=== PATIENT | male | born 1940 | race Caucasian/White ===

== ENCOUNTER → 2017-12-19 | Day surgery (SDC) | payer OTHER ==
[2017-11-29 13:00] VITALS: Ht 185.4 cm; Wt 79.1 kg
[~2017-12-19] VITALS: Ht 185.4 cm; Wt 79.1 kg
[~2017-12-19] MED LIST: ASPCH81X PO; ATOR-24 PO; ATROPINE SULFATE 0.1 MG/ML 5ML SYR IV PRN; CEFAZOLIN 1000MG IV PUSH 7.5 ML IV SCH; CLOP1TAB15 PO; DOXA2TAB PO; EpHEDrine SULFATE INJ 50 MG/ML AMP IV PRN; EpHEDrine SULFATE INJ 50 MG/ML AMP ONE; FENTANYL CITRATE INJ 50 MCG/1 ML 2 ML VIAL IV PRN; FENTANYL CITRATE INJ 50 MCG/1 ML 2 ML VIAL ONE; FLUMAZENIL 0.1 MG/1 ML 10 ML VIAL IV PRN; HYDR-5688 PO; HYDROCODONE/ACETAMIN 5/325MG TAB PO PRN; HYDROmorphone INJ 0.5 MG/0.5 ML SYR IV PRN; ISOS120T5 PO; LABETALOL HCL IV 5 MG/ML 20ML IV PRN; LACTATED RINGER'S 1000ML 1,000 ML IV SCH; LIDOCAINE HCL 2% 2 ML VIAL (20MG/ML) ONE; LIDOCAINE HCL 2% LOCAL 20 ML VIAL ONE; LIFI5DRO OPB; LISI-789 PO; MELO15TA10 PO; MEPERIDINE HCL 25 MG/ML CARP IV PRN; METO25TA3 PO; MIDAZOLAM HCL 1 MG/ML 2ML VIAL ONE; NALOXONE HCL 0.4 MG/1 ML VIAL/CARP IV PRN; NTRGSL/4 UT; ONDANSETRON INJ 2 MG/ML 2 ML VIAL IV PRN; ONDANSETRON INJ 2 MG/ML 2 ML VIAL ONE; PANT40TA PO; PHENYLEPHRINE 100MCG/ML 5ML SYR IV PRN; PROPOFOL IV EMULSION 10 MG/ML 20 ML VIAL ONE; SODIUM CHLORIDE 0.9% 1000ML 1,000 ML IV SCH; SODIUM CHLORIDE 0.9% INJ 10 ML VIAL ONE
--- NOTE | 2017-12-19 06:42 | History & Physical Bridge - [place] ---
H&P Re-Evaluation Bridge Note: I have examined the patient, reviewed the History & Physical and in the interval since the performance of the History & Physical I have noted the following changes of clinical significance: No changes noted
--- NOTE | 2017-12-19 07:16 | [facility] Post Operative Brief Note ---
Immediate Operative Summary Operative Date December 19, 2017. Pre-Operative Diagnosis Right Long Trigger Finger Post-Operative Diagnosis Same Procedure(s) Performed Right Long Trigger Finger Release Surgeon Dr. Gonzalez Annual Giving Manager Surgeon(s) Analy Churchill PA-C Estimated Blood Loss 5 ml Findings Consistent with Post-Op Diagnosis Specimens None Drains None Anesthesia Type MAC Complication(s) none Disposition Disposition: Recovery Room / PACU
--- NOTE | 2017-12-19 07:26 | Discharge Instructions-SurgCtr ---
Discharge Instructions Date of Service December 19, 2017. Visit Reason for Visit: Right Long Trigger Finger Discharge Discharge Diagnosis / Problem: SAME ABOVE Discharge Goals Goal(s): Decrease discomfort, Improve function Medications Stopped Medications Name(s): plavix last dose 12-12-17 Restart Stopped Medication(s): NOVEMBER RESTART 12/19/2017 Activity Recommendations Activity Limitations: as noted below Lifting Limitations: until after follow-up appointment Exercise/Sports Limitations: until after follow-up appointment Shower/Bathe: may shower/bathe in 3 days Anesthesia . Post Anesthesia Instructions: If you have had General Anesthesia or IV Sedation: * Do not drive today. * Resume driving when surgeon permits. * Do not make important decisions or sign legal documents today. * Call surgeon for: 1. Temperature elevations greater than 101 degrees F. 2. Uncontrollable pain. 3. Excessive bleeding. 4. Persistent nausea and vomiting. 5. Medication intolerance (nausea, vomiting or rash). * For nausea and vomiting use only clear liquids such as: tea, soda, bouillon until nausea subsides, then gradually increase diet as tolerated. * If you have any concerns or questions, call your surgeon's office. If physician is unavailable and it is an emergency, call 911 or go to the nearest emergency room. . Instructions / Follow-Up Instructions / Follow-Up MEDICATIONS: * Resume previous medications unless instructed otherwise by your surgeon. * Always take pain medication on a full stomach or with food to avoid upset stomach. * Do not drink alcohol or drive while taking narcotics. * Ibuprofen or Tylenol may be taken if narcotic not needed. SPECIAL CARE INSTRUCTIONS: __ None X__ Keep extremity elevated and iced x 48 hours; apply ice 20-30 minutes 8-10 times/day. May remove at night. __ Sling __24 hrs/day __ Remove at night __ Shoulder Immobilizer __ 24 hrs/day __ Remove at night _X_ Dressing __ Maintain until seen in office, may shower with plastic over site _X_ Remove dressings in 72 hours. MAY SHOWER SOONER IF COVERED WITH PLASTIC BAG _X_ Cover incisions with band-aids after showering __ Do not remove steri-strips Call physician if chills or temperature rises above 102 degrees or pain unrelieved by prescribed pain medications at . . Diet Recommendations Home Diet: no limitations Fluid Restriction: None Procedures Procedures Performed: Right Long Trigger Finger Release Pending Studies Studies pending at discharge: no Medical Emergencies . Who to Call and When: Medical Emergencies: If at any time you feel your situation is an emergency, please call 911 immediately. . Non-Emergent Contact Non-Emergency issues call your: Primary Care Provider Call Non-Emergent contact if: you have a fever, temperature is above 101.5 . . "Provider Documentation" section prepared by Eber Churchill. .
[2017-12-19 07:31] VITALS: TEMP 36.8
--- NOTE | 2017-12-19 07:34 | OPERATIVE REPORT ---
DATE OF OPERATION: 12/19/2017 PREOPERATIVE DIAGNOSIS: Triggering of the right long finger. POSTOPERATIVE DIAGNOSIS: Same. PROCEDURE: Open right long trigger finger release. SURGEON: Dr. Te Gonzalez. SENIOR TECHNICAL SPECIALIST: Eber Churchill PA-C, whose assistance was necessary for retraction and closure. ANESTHESIA: Local with sedation. COMPLICATIONS: None. CONDITION: Stable to PACU. 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 Clinical examination was diagnostic for triggering at the A1 elis. After failing conservative treatment, he elected to undergo open trigger finger release. DESCRIPTION OF PROCEDURE: On 12/19/2017, he arrived at [facility] for the above procedure. He was seen in the preoperative holding and the operative extremity was identified and signed. He was given a preoperative antibiotic, taken back to the operating room, laid on table in supine position and put under basic sedation. The right hand was prepped and draped in sterile fashion. Time-out was done and the patient's operative extremity was properly identified. The surgical site was anesthetized with 10 mL of lidocaine. A longitudinal incision was made directly over the A1 elis. Dissection was taken down through the fascia with care not to disrupt the neurovascular structures. The A1 elis was easily identified. A knife and tenotomy scissors were then used to release the A1 elis. The tendon was then pulled out of the wound to ensure complete release. The wound was then irrigated and closed with 4-0 nylon suture. He was placed in a soft dressing and taken to postanesthesia care unit in stable condition. He tolerated the procedure well. I attest to the content of the Intraoperative Record and any orders documented therein. Any exception s are noted below.
--- NOTE | 2017-12-19 07:38 | Anesthesia Progress Nt - [facility] ---
Anesthesia Post Op Note Date & Time December 19, 2017 at 07:38 Vital Signs Pain Intensity: 0 Vital Signs Past 12 Hours Date Time Temp Pulse Resp B/P (MAP) Pulse Ox O2 Delivery O2 Flow Rate FiO2 12/19/17 07:31 36.8 81 16 103/58 (73) 96 Room Air 12/19/17 06:27 36.7 61 18 147/76 (99) 95 Room Air Notes Mental Status: alert / awake / arousable, participated in evaluation Pt Amnestic to Procedure: Yes Nausea / Vomiting: adequately controlled Pain: adequately controlled Airway Patency, RR, SpO2: stable & adequate BP & HR: stable & adequate Hydration State: stable & adequate Anesthetic Complications: no major complications apparent
[2017-12-19 07:57] VITALS: BP 167/88; PULSE 66; O2SAT 96
== END | disposition home or self-care (01) ==
LOC: X.SURG 06:15
PROVIDERS: ATTEND Orthopaedic Surgery
DX: M65.331 Trigger finger, right middle finger (principal); I25.10 Atherosclerotic heart disease of native coronary artery without angina pectoris; E78.00 Pure hypercholesterolemia, unspecified; K21.9 Gastro-esophageal reflux disease without esophagitis; E78.5 Hyperlipidemia, unspecified; M19.90 Unspecified osteoarthritis, unspecified site; I10 Essential (primary) hypertension; Z82.49 Family history of ischemic heart disease and other diseases of the circulatory system; Z82.3 Family history of stroke; Z79.82 Long term (current) use of aspirin; Z87.891 Personal history of nicotine dependence; Z95.818 Presence of other cardiac implants and grafts

== ENCOUNTER 2021-01-27 17:53 | Inpatient (IN) ==
[2021-01-27] MEDS ORDERED: KETOROLAC TROMETHAMINE 15 MG/ML VIAL IV STA (18:43)
[2021-01-27] MEDS ORDERED: cefTRIAXone SODIUM 2,000 MG/70 ML BAG IV STA (18:43)
[2021-01-27] MEDS ORDERED: DOXYCYCLINE HYCLATE 100 MG CAP PO STA (18:43)
[2021-01-27] MEDS ORDERED: ACETAMINOPHEN 500 MG TAB PO STA (18:43)
[2021-01-27] MEDS ORDERED: SODIUM CHLORIDE 0.9% 1000ML 1,000 ML IV SCH (18:45)
--- NOTE | 2021-01-27 18:51 | Emergency Department Note ---
Impression & Plan Fever, Weakness, Flu-like symptoms, Tick bite ED Provider Note NAME: ANA PACHECO AGE: 80 SEX: M : 1940 ARRIVES VIA: Ambulance INFORMANT: [Patient][family] ED PROVIDER(S): [Kuldeep Faulkner MD] CHIEF COMPLAINT: Illness HISTORY OF PRESENT ILLNESS: The patient is an 80-year-old male who presents with about 3 days of symptoms. He has had weakness and felt like he has been in a fog since Saturday. He states that Saturday evening, he had a low-grade fever that seemed to break yesterday. The patient saw his doctor this morning and was sent to the ER for f urther work-up. They had noticed some weakness in his legs at the doctor's office and he was having a hard time standing. Work-up at this ED was unrevealing. No findings of infection. No findings of acute focal neurologic deficit. The patient was discharged. As per the patient and his family, the patient began having rigors and chills a short time ago after leaving the ED. His weakness increased. Both legs were involved. He had a headache, he seemed slightly confused. The patient did have a Covid test done earlier today, this was negative. He had a chest x-ray which was unrevealing. His brain CT imaging and abdominal CT imaging was basically unrevealing. No findings of infection by laboratory testing. Of note, the patient does believe he had a tick bite to his right inner proximal thigh about a week ago. [place] REVIEW OF SYSTEMS: See HPI for pertinent positives and negatives. A total of ten systems were reviewed and were otherwise negative. PMHx/PSHx: See Below SOCIAL HISTORY: See Below. PHYSICAL EXAM: GENERAL: Patient is in no acute distress. HEENT: No acute trauma, normocephalic atraumatic, mucous membranes moist, no nasal congestion, no scleral icterus. NECK: No stridor, no adenopathy, no meningismus, trachea is midline. Flexes chin to the chest without pain or difficulty. LUNGS: Clear to auscultation bilaterally, no wheeze, no rhonchi, breath sounds equal. HEART: Without murmurs gallops or rubs, regular rate and rhythm. ABDOMEN: Soft, nontender, bowel sounds positive, no hernias, no peritonitis. EXTREMITIES: No cyanosis or edema, full range of motion of all the joints without pain or difficulty, no signs for acute trauma. There is an area that is healing to the right proximal inner thigh that has the appearance of potential tick bite. Very mild surrounding erythema noted. NEUROLOGIC: Oriented x 3, no acute motor or sensory deficits, no focal weakness. No speech slur or facial droop. SKIN: No rash, no jaundice, no diaphoresis. DIFFERENTIAL DIAGNOSIS: Sepsis, UTI, pneumonia, metabolic abnormality, Lyme disease, anaplasmosis, COVID-19, electrolyte abnormalities, cardiac sources, cellulitis, UTI, bacteremia, intracerebral event, toxicologic etiology, neurologic event, as well as other pathologies. EMERGENCY DEPARTMENT COURSE/PROCEDURES: MEDICAL DECISION MAKING: There is no leukocytosis or concerning anemia. Platelet count is slightly low. No significant electrolyte abnormality or kidney failure. Lactic acid level is not elevated making sepsis less likely. Procalcitonin level was somewhat elevated. No liver enzyme elevation. Cardiac enzyme testing x1 is not consistent with acute cardiac injury. Urinalysis does not show obvious infection. Lyme disease testing was negative. Anaplasmosis smear was negative. Anaplasmosis DNA is pending. On exam, the patient did not have meningismus. He was awake and alert. He had no neurologic deficits or speech slur. I did review the patient's testing from earlier today. Nothing found of concern really. The patient has a dropping platelet count. He has flulike symptoms and had a recent tick bite. He has a fever. I suspect anaplasmosis or some other type of tickborne disease. The patient was given IV saline, IV ceftriaxone and oral doxycycline. He was given IV Toradol, oral Tylenol. He was given his typical dose of oral nighttime metoprolol succinate. The patient looks well. I do think he requires a hospital stay. He is quite weak, he is having rigors. This is his second visit in 1 day to the ED. I do think further care in the hospital is warranted. I spoke to the patient and case management. The on-call hospitalist was consulted. Past Med/Surg History Medical History BPH (benign prostatic hyperplasia) CAD (coronary artery disease) CKD (chronic kidney disease), stage III CVA (cerebral vascular accident) GERD (gastroesophageal reflux disease) HLD (hyperlipidemia) HTN (hypertension) Surgical History (Updated 01/27/21 @ 21:18 by Zulma Pizarro PA-C) H/O heart artery stent Hx of laminectomy Family History (Updated 01/27/21 @ 21:19 by Zulma Pizarro PA-C) Mother Dementia Father Stroke Social History Smoking Status: Former smoker Hx Alcohol Use: Yes Alcohol type: wine Alcohol Intake Frequency Comment: 1 glass wine day Hx Substance Use: No Preferred Language: Thai Feels Safe at Home: Yes Allergies Allergies Allergy/AdvReac Type Severity Reaction Status Date / Time No Known Allergies Allergy Unknown ` Verified 01/27/21 20:49 Home Meds Home Medications Medication Instructions Recorded Confirmed aspirin [Aspirin Low Dose] 162 mg PO QAM 01/27/21 01/27/21 atorvastatin [Lipitor] 40 mg PO 01/27/21 01/27/21 clopidogrel [Plavix] 75 mg PO 01/27/21 01/27/21 cyclobenzaprine 5 mg PO TID PRN 01/27/21 01/27/21 isosorbide mononitrate 30 mg PO QA 01/27/21 01/27/21 metoprolol succinate [Toprol XL] 12.5 mg PO 01/27/21 01/27/21 nitroglycerin [Nitrostat] 0.4 mg SUBLINGUAL UD 01/27/21 01/27/21 pantoprazole [Protonix] 40 mg PO DAILYBB 01/27/21 01/27/21 prednisone 0 mg PO DAILY 01/27/21 01/27/21 tamsulosin [Flomax] 0.4 mg PO HS 01/27/21 01/27/21 valacyclovir [Valtrex] 500 mg PO QAM 01/27/21 01/27/21 Results & Data (ED) Vital Signs Vital Signs - 24 hr 01/27/21 17:58 01/27/21 18:24 01/27/21 18:27 Temperature 38.1 C H Temperature Source Oral Pulse Rate 98 H 93 H Pulse Rate [Apical] 92 H Pulse Rate from SpO2 Sensor 93 H Pulse Rhythm [Apical] Regular Respiratory Rate 18 29 H 16 Respiratory Effort / Characteristics Non-Labored Respiratory Depth Normal Blood Pressure 179/92 H 168/96 H Blood Pressure [Right Arm] 168/96 H Blood Pressure Mean 121 120 Blood Pressure Mean [Right Arm] 120 Pulse Oximetry 95 94 94 Oxygen Delivery Method Room Air Room Air Sepsis Recent Fever Within 48 Hours Yes Sepsis New/Unexplained Change in Mental Status No Sepsis Action Taken by Nursing No Action Required 01/27/21 18:28 01/27/21 18:30 01/27/21 18:40 Temperature Temperature Source Pulse Rate 92 H 92 H 93 H Pulse Rate [Apical] Pulse Rate from SpO2 Sensor 92 H 93 H 93 H Pulse Rhythm [Apical] Respiratory Rate 28 H 25 H 28 H Respiratory Effort / Characteristics Respiratory Depth Blood Pressure 181/90 H Blood Pressure [Right Arm] Blood Pressure Mean 120 Blood Pressure Mean [Right Arm] Pulse Oximetry 94 95 93 Oxygen Delivery Method Sepsis Recent Fever Within 48 Hours Sepsis New/Unexplained Change in Mental Status Sepsis Action Taken by Nursing 01/27/21 18:50 01/27/21 18:55 01/27/21 19:00 Temperature Temperature Source Pulse Rate 92 H 99 H 99 H Pulse Rate [Apical] Pulse Rate from SpO2 Sensor 91 H 98 H Pulse Rhythm [Apical] Respiratory Rate 27 H 33 H 19 Respiratory Effort / Characteristics Respiratory Depth Blood Pressure 203/113 H 213/110 H Blood Pressure [Right Arm] Blood Pressure Mean 143 144 Blood Pressure Mean [Right Arm] Pulse Oximetry 95 96 Oxygen Delivery Method Sepsis Recent Fever Within 48 Hours Sepsis New/Unexplained Change in Mental Status Sepsis Action Taken by Nursing 01/27/21 19:10 01/27/21 19:15 01/27/21 19:20 Temperature Temperature Source Pulse Rate 93 H 94 H 94 H Pulse Rate [Apical] Pulse Rate from SpO2 Sensor 93 H 93 H 94 H Pulse Rhythm [Apical] Respiratory Rate 23 28 H 29 H Respiratory Effort / Characteristics Non-Labored Respiratory Depth Blood Pressure 190/101 H Blood Pressure [Right Arm] Blood Pressure Mean 130 Blood Pressure Mean [Right Arm] Pulse Oximetry 95 95 94 Oxygen Delivery Method Room Air Sepsis Recent Fever Within 48 Hours Sepsis New/Unexplained Change in Mental Status Sepsis Action Taken by Nursing 01/27/21 19:30 01/27/21 19:40 01/27/21 19:45 Temperature Temperature Source Pulse Rate 113 H 101 H 101 H Pulse Rate [Apical] Pulse Rate from SpO2 Sensor 112 H 102 H 101 H Pulse Rhythm [Apical] Respiratory Rate 26 H 22 26 H Respiratory Effort / Characteristics Respiratory Depth Blood Pressure 152/82 H Blood Pressure [Right Arm] Blood Pressure Mean 105 Blood Pressure Mean [Right Arm] Pulse Oximetry 95 94 95 Oxygen Delivery Method Sepsis Recent Fever Within 48 Hours Sepsis New/Unexplained Change in Mental Status Sepsis Action Taken by Nursing 01/27/21 19:50 01/27/21 20:00 01/27/21 20:10 Temperature Temperature Source Pulse Rate 102 H 100 H 100 H Pulse Rate [Apical] Pulse Rate from SpO2 Sensor 102 H 99 H 99 H Pulse Rhythm [Apical] Respiratory Rate 27 H 37 H 20 Respiratory Effort / Characteristics Respiratory Depth Blood Pressure 149/78 H Blood Pressure [Right Arm] Blood Pressure Mean 101 Blood Pressure Mean [Right Arm] Pulse Oximetry 95 96 95 Oxygen Delivery Method Sepsis Recent Fever Within 48 Hours Sepsis New/Unexplained Change in Mental Status Sepsis Action Taken by Nursing 01/27/21 20:15 01/27/21 20:20 01/27/21 20:30 Temperature Temperature Source Pulse Rate 95 H 94 H 92 H Pulse Rate [Apical] Pulse Rate from SpO2 Sensor 95 H 94 H 92 H Pulse Rhythm [Apical] Respiratory Rate 21 24 17 Respiratory Effort / Characteristics Respiratory Depth Blood Pressure 142/77 H 138/75 Blood Pressure [Right Arm] Blood Pressure Mean 98 96 Blood Pressure Mean [Right Arm] Pulse Oximetry 94 95 95 Oxygen Delivery Method Sepsis Recent Fever Within 48 Hours Sepsis New/Unexplained Change in Mental Status Sepsis Action Taken by Nursing 01/27/21 20:40 Temperature Temperature Source Pulse Rate 91 H Pulse Rate [Apical] Pulse Rate from SpO2 Sensor 90 Pulse Rhythm [Apical] Respiratory Rate 20 Respiratory Effort / Characteristics Respiratory Depth Blood Pressure Blood Pressure [Right Arm] Blood Pressure Mean Blood Pressure Mean [Right Arm] Pulse Oximetry 95 Oxygen Delivery Method Sepsis Recent Fever Within 48 Hours Sepsis New/Unexplained Change in Mental Status Sepsis Action Taken by [facility] Medications Current Medication List: was personally reviewed by me Laboratory Data Attestation: I reviewed the patient's lab results. Result diagrams: 01/27/21 19:15 01/27/21 19:15 Lab Results 01/27/21 01/27/21 01/27/21 Range/Units 18:15 19:15 19:15 WBC 8.57 (4.8-10.8) K/uL RBC 4.50 L (4.7-6.1) M/uL Hgb 15.0 (14.0-18.0) g/dL Hct 43.5 (42-52) % MCV 96.7 (80-100) fL MCH 33.3 (25-34) pg MCHC 34.5 (32-36) g/dL RDW Std Deviation 51.3 H (36.4-46.3) fL RDW Coeff of [place] 14.3 (11.5-14.5) % Plt Count 129 L (130-400) K/uL MPV 9.0 (7.4-10.4) fL Immature Gran % (Auto) 0.4 % Neut % (Auto) 92.6 % Lymph % (Auto) 3.2 % [place] % (Auto) 3.5 % Eos % (Auto) 0.2 % Baso % (Auto) 0.1 % Neut # (Auto) 7.94 H (1.4-6.5) K/uL Lymph # (Auto) 0.27 L (1.2-3.4) K/uL [place] # (Auto) 0.30 (0.11-0.59) K/uL Eos # (Auto) 0.02 (0-0.5) K/uL Baso # (Auto) 0.01 (0-0.2) K/uL Immature Gran # (Auto) 0.03 H (0.00-0.02) K/uL Sodium (136-145) mmol/L Potassium (3.5-5.1) mmol/L Chloride (98-107) mmol/L Carbon Dioxide (21-32) mmol/L Anion Gap (3-11) BUN (7-18) mg/dl Creatinine (0.6-1.4) mg/dl Est Cr Clr Drug Dosing ml/min Est GFR ( Amer) ml/min Est GFR (Non-Af Amer) ml/min BUN/Creatinine Ratio (10-20) Glucose (70-99) mg/dl Lactate (0.4-2.0) mmol/L Calcium (8.5-10.1) mg/dl Magnesium (1.8-2.4) mg/dl Total Bilirubin (0.2-1) mg/dl AST (15-37) U/L ALT (12-78) U/L Alkaline Phosphatase (45-117) U/L Troponin I (0-0.045) ng/ml Total Protein (6.4-8.2) gm/dl Albumin (3.4-5.0) gm/dl Globulin (2.5-4.0) gm/dl Albumin/Globulin Ratio (0.9-2) Procalcitonin (0-0.5) ng/ml Urine Color Yellow Urine Appearance Clear (Clear) Urine pH 5.0 (4.5-7.5) Ur Specific [place] 1.028 (1.000-1.030) Urine Protein Negative (Negative) Urine Glucose (UA) Negative (Negative) Urine Ketones Negative (Negative) Urine Blood 2+ H (Negative) Urine Nitrite Negative (Negative) Urine Bilirubin Negative (Negative) Urine Urobilinogen Negative (Negative) Ur Leukocyte Esterase Negative (Negative) Urine WBC (Auto) 0 (0-5) /hpf Urine RBC (Auto) 5-10 H (0-4) /hpf U Hyaline Cast (Auto) 0 (0-5) /lpf U Epithel Cells (Auto) 0-5 (0-5) /lpf Urine Bacteria (Auto) Negative (Negative) Anaplasma Smear See Comment Lyme Disease IgG Ab (Negative) Lyme Disease IgM Ab (Negative) 01/27/21 01/27/21 01/27/21 Range/Units 19:15 19:15 19:30 WBC (4.8-10.8) K/uL RBC (4.7-6.1) M/uL Hgb (14.0-18.0) g/dL Hct (42-52) % MCV (80-100) fL MCH (25-34) pg MCHC (32-36) g/dL RDW Std Deviation (36.4-46.3) fL RDW Coeff of [place] (11.5-14.5) % Plt Count (130-400) K/uL MPV (7.4-10.4) fL Immature Gran % (Auto) % Neut % (Auto) % Lymph % (Auto) % [place] % (Auto) % Eos % (Auto) % Baso % (Auto) % Neut # (Auto) (1.4-6.5) K/uL Lymph # (Auto) (1.2-3.4) K/uL [place] # (Auto) (0.11-0.59) K/uL Eos # (Auto) (0-0.5) K/uL Baso # (Auto) (0-0.2) K/uL Immature Gran # (Auto) (0.00-0.02) K/uL Sodium 136 (136-145) mmol/L Potassium 4.3 (3.5-5.1) mmol/L Chloride 105 (98-107) mmol/L Carbon Dioxide 28 (21-32) mmol/L Anion Gap 3.0 (3-11) BUN 24 H (7-18) mg/dl Creatinine 1.10 (0.6-1.4) mg/dl Est Cr Clr Drug Dosing 58.9 ml/min Est GFR ( Amer) 73.1 ml/min Est GFR (Non-Af Amer) 63.1 ml/min BUN/Creatinine Ratio 21.8 H (10-20) Glucose 114 H (70-99) mg/dl Lactate 1.4 (0.4-2.0) mmol/L Calcium 8.7 (8.5-10.1) mg/dl Magnesium 2.3 (1.8-2.4) mg/dl Total Bilirubin 1.0 (0.2-1) mg/dl AST 23 (15-37) U/L ALT 45 (12-78) U/L Alkaline Phosphatase 58 (45-117) U/L Troponin I < 0.015 (0-0.045) ng/ml Total Protein 7.4 (6.4-8.2) gm/dl Albumin 3.8 (3.4-5.0) gm/dl Globulin 3.6 (2.5-4.0) gm/dl Albumin/Globulin Ratio 1.1 (0.9-2) Procalcitonin 1.52 H (0-0.5) ng/ml Urine Color Urine Appearance (Clear) Urine pH (4.5-7.5) Ur Specific [place] (1.000-1.030) Urine Protein (Negative) Urine Glucose (UA) (Negative) Urine Ketones (Negative) Urine Blood (Negative) Urine Nitrite (Negative) Urine Bilirubin (Negative) Urine Urobilinogen (Negative) Ur Leukocyte Esterase (Negative) Urine WBC (Auto) (0-5) /hpf Urine RBC (Auto) (0-4) /hpf U Hyaline Cast (Auto) (0-5) /lpf U Epithel Cells (Auto) (0-5) /lpf Urine Bacteria (Auto) (Negative) Anaplasma Smear Lyme Disease IgG Ab Negative (Negative) Lyme Disease IgM Ab Negative (Negative) Administered Medications Discontinued Medications Acetaminophen (Acetaminophen 500 Mg Tab) 1,000 mg PO NOW STA Stop: 01/27/21 18:44 Last Admin: 01/27/21 18:50 Dose: 1,000 mg Documented by: [id number] Doxycycline Hyclate (Doxycycline Hyclate 100 Mg Cap) 100 mg PO NOW STA Stop: 01/27/21 18:44 Last Admin: 01/27/21 18:51 Dose: 100 mg Documented by: [id number] Sodium Chloride (Nss 1000ml) 1,000 mls @ 999 mls/hr IV .Q1H1M MANISH Stop: 01/27/21 19:45 Last Infusion: 01/27/21 19:53 Dose: 999 mls/hr Documented by: [id number] Admin: 01/27/21 18:51 Dose: 999 mls/hr Documented by: [id number] Ceftriaxone Sodium (Rocephin) 2,000 mg in 70 mls @ 140 mls/hr IV NOW STA Stop: 01/27/21 19:12 Last Infusion: 01/27/21 19:22 Dose: 140 mls/hr Documented by: [id number] Admin: 01/27/21 18:50 Dose: 140 mls/hr Documented by: [id number] Ketorolac Tromethamine (Ketorolac Tromethamine 15 Mg/Ml Vial) 15 mg IV NOW STA Stop: 01/27/21 18:44 Last Admin: 01/27/21 18:51 Dose: 15 mg Documented by: [id number] Metoprolol Succinate (Metoprolol Succ 25mg Ext Rel Tab) 12.5 mg PO NOW STA Stop: 01/27/21 19:42 Last Admin: 01/27/21 19:48 Dose: 12.5 mg Documented by: [id number] Discharge Plan Visit Data Chief Complaint: Illness Stated Complaint: tick bite/chills, here today ED Provider: Kuldeep Faulkner Discharge Problem: Fever, Weakness, Flu-like symptoms, Tick bite Patient Disposition: Admitted As Inpatient Condition: Fair Forms Stand Alone Forms: [facility] Prescriptions Prescriptions: No Action atorvastatin [Lipitor] 40 mg tablet 40 mg PO HS RF: 0 prednisone 10 mg tablet 0 mg PO DAILY RF: 0 isosorbide mononitrate 30 mg tablet extended release 24 hr 30 mg PO QAM RF: 0 clopidogrel [Plavix] 75 mg tablet 75 mg PO HS RF: 0 valacyclovir [Valtrex] 500 mg tablet 500 mg PO QAM RF: 0 aspirin [Aspirin Low Dose] 81 mg Tablet,Delayed Release (Dr/Ec) 162 mg PO QAM RF: 0 tamsulosin [Flomax] 0.4 mg capsule 0.4 mg PO HS RF: 0 pantoprazole [Protonix] 40 mg tablet,delayed release (DR/EC) 40 mg PO DAILYBB RF: 0 nitroglycerin [Nitrostat] 0.4 mg Tablet, Sublingual 0.4 mg sublingual UD RF: 0 metoprolol succinate [Toprol XL] 25 mg tablet extended release 24 hr 12.5 mg PO HS RF: 0 cyclobenzaprine 5 mg tablet 5 mg PO TID PRN (Reason: MUSCLE SPASMS) RF: 0 Referrals Referrals: Olga Montague DO [Primary Care Provider] -
[2021-01-27 19:28] LABS: Basophils # (auto) 0.01 K/uL (0-0.2); Basophils % (auto) 0.1 %; Eosinophils # (auto) 0.02 K/uL (0-0.5); Eosinophils % (auto) 0.2 %; Hematocrit (blood only) 43.5 % (42-52); Immature Granulocytes # (auto) 0.03 K/uL (0.00-0.02); Immature Granulocytes % (auto) 0.4 %; Lymphocytes # (auto) 0.27 K/uL (1.2-3.4); Lymphocytes % (auto) 3.2 %; Mean Corpuscular Hemoglobin 33.3 pg (25-34); Mean Corpuscular Hgb Conc 34.5 g/dL (32-36); Mean Corpuscular Volume 96.7 fL (80-100); Monocytes % (auto) 3.5 %; Neutrophils # (auto) 7.94 K/uL (1.4-6.5); Neutrophils % (auto) 92.6 %; Platelet Count 129 K/uL (130-400); RDW Coefficient of Variation 14.3 % (11.5-14.5); RDW Standard Deviation 51.3 fL (36.4-46.3); White Blood Count 8.57 K/uL (4.8-10.8)
[2021-01-27 19:29] LABS: Appearance Urine Clear (Clear); Bacteria Urine Automated Negative (Negative); Bilirubin Urine Negative (Negative); Blood Urine 2+ (Negative); Cast Urine Automated 0 /lpf (0-5); Color Urine Yellow; Epithelial Cell Urine Auto 0-5 /lpf (0-5); Glucose Urine UA Negative (Negative); Ketones Urine Negative (Negative); Leukocyte Esterase Urine Negative (Negative); Nitrite Urine Negative (Negative); Protein Urine Negative (Negative); Specific Gravity Urine 1.028 (1.000-1.030); Urobilinogen Urine Negative (Negative); WBC Urine Automated 0 /hpf (0-5)
[2021-01-27] MEDS ORDERED: METOPROLOL SUCC 25MG EXT REL TAB PO STA (19:41)
[2021-01-27 19:48] LABS: Alanine Aminotransferase 45 U/L (12-78); Albumin Level 3.8 gm/dl (3.4-5.0); Aspartate Aminotransferase 23 U/L (15-37); BUN Creatinine Ratio 21.8 (10-20); Blood Urea Nitrogen 24 mg/dl (7-18); Calcium 8.7 mg/dl (8.5-10.1); Carbon Dioxide 28 mmol/L (21-32); Chloride 105 mmol/L (98-107); Creatinine Clr Calc Pharmacy 58.9 ml/min; Est GFR (African American) 73.1 ml/min; Est GFR (Non-African American) 63.1 ml/min; Glucose 114 mg/dl (70-99); Magnesium 2.3 mg/dl (1.8-2.4); Potassium 4.3 mmol/L (3.5-5.1); Sodium 136 mmol/L (136-145)
[2021-01-27 19:52] LABS: Albumin Globulin Ratio 1.1 (0.9-2); Alkaline Phosphatase 58 U/L (45-117); Globulin 3.6 gm/dl (2.5-4.0); Total Protein 7.4 gm/dl (6.4-8.2); Troponin I < 0.015 ng/ml (0-0.045)
[2021-01-27 20:17] LABS: Procalcitonin 1.52 ng/ml (0-0.5)
[2021-01-27 20:24] LABS: Lyme Ab IgG w/WB Rflx Negative (Negative); Lyme Ab IgM w/WB Rflx Negative (Negative)
--- NOTE | 2021-01-27 21:10 | History & Physical Report ---
Date of Service January 27, 2021 Assessment & Plan (1) Fever: (2) Weakness: (3) CKD (chronic kidney disease), stage III: (4) CAD (coronary artery disease): (5) HTN (hypertension): (6) HLD (hyperlipidemia): (7) BPH (benign prostatic hyperplasia): HPI, PMH, PE, med rec completed by Zulma Pizarro PA-C. Assessment and Plan per Dr Muniz. See addendum. History of Present Illness Chief Complaint: Fever, weakness Primary Care Provider: Olga Montague, Pt is 80 y/o M with PMH HTN, dyslipidemia, CKD III, CAD s/p stent, CVA, BPH, GERD presented to ER with complaint of fever and weakness x3 days. Patient states today having difficulty ambulating secondary to legs feeling weak and feeling like they are giving out on him. Reports had generalized headache yesterday. He has had decreased oral intake. He reports he gets headache when he does not eat and today he ate some food and headache resolved. Denies neck pain or stiffness. Had some nausea, no vomiting or diarrhea, no abdominal pain. Reports last week noticed what he initially thought was a pimple to right upper inner thigh however he then reports that it was a tick. 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 Denies ill contacts, recent travel. Had 2 doses Pfizer vaccine last dose was in 11/2020. Denies dizziness, syncope, vision changes, neck pain, CP, SOB, orthopnea, palpitations, cough, sore throat, choking, otalgia, rhinorrhea, abdominal pain, paresthesias, extremity edema, rashes, urinary symptoms. Was seen in ER this morning and discharged home and returned today secondary to continued fever and weakness. CT head: No acute changes, chest x-ray: No consolidation. CT abdomen/pelvis: No acute findings. WBC: 8, PLT: 129, LFTs WNL, lactate: 1.4, procalcitonin: 1.5, UA not consistent with infection. Lyme IgG AB and IgM AB-, anaplasmosis smear not consistent with anaplasmosis. Anaplasmosis PCR is pending. Patient being admitted for further treatment for suspected tickborne illness Allergies Allergy/AdvReac Type Severity Reaction Status Date / Time No Known Allergies Allergy Unknown ` Verified 01/27/21 20:49 Home Medications Medication Instructions Recorded Confirmed Type aspirin [Aspirin Low Dose] 162 mg PO QAM 01/27/21 01/27/21 History atorvastatin [Lipitor] 40 mg PO HS 01/27/21 01/27/21 History clopidogrel [Plavix] 75 mg PO HS 01/27/21 01/27/21 History cyclobenzaprine 5 mg PO TID PRN 01/27/21 01/27/21 History isosorbide mononitrate 30 mg PO QAM 01/27/21 01/27/21 History metoprolol succinate [Toprol XL] 12.5 mg PO HS 01/27/21 01/27/21 History nitroglycerin [Nitrostat] 0.4 mg SUBLINGUAL UD 01/27/21 01/27/21 History pantoprazole [Protonix] 40 mg PO DAILYBB 01/27/21 01/27/21 History prednisone 0 mg PO DAILY 01/27/21 01/27/21 History tamsulosin [Flomax] 0.4 mg PO HS 01/27/21 01/27/21 History valacyclovir [Valtrex] 500 mg PO QAM 01/27/21 01/27/21 History Past Med/Surg History Medical History BPH (benign prostatic hyperplasia) CAD (coronary artery disease) CKD (chronic kidney disease), stage III CVA (cerebral vascular accident) GERD (gastroesophageal reflux disease) HLD (hyperlipidemia) HTN (hypertension) Surgical History (Updated 01/27/21 @ 21:18 by Zulma Pizarro PA-C) H/O heart artery stent Hx of laminectomy Family History (Updated 01/27/21 @ 21:19 by Zulma Pizarro PA-C) Mother Dementia Father Stroke Social History Smoking Status: Former smoker Smoking End Date: "30 years ago"; Second Hand Exposure: No; Do You Dip or Chew Tobacco: No; Hx Alcohol Use: Yes Alcohol type: wine Alcohol Intake Frequency Comment: 1 glass wine day Hx Substance Use: No Preferred Language: Urdu Communication Ability: Effective Utility Maintenance Worker Required: No Beliefs That Will Affect Care: None Current Living Situation: Spouse Feels Safe at Home: Yes Safety Concerns: Feels Safe At This Time Assistive Devices: Denture - Upper Review of Systems Review of Systems: All systems reviewed & are unremarkable except as noted in HPI & below Physical Exam Physical Exam: General: no distress, WDWN Head: normocephalic, atraumatic Eyes: PERRL, EOM's intact, conjunctiva non-injected, anicteric ENT: normal inspection external ears, nose, mucous membranes moist Neck: supple, trachea midline, non-tender, ROM intact Lungs: clear, no respiratory distress, no wheezing/rhonchi/rales CV: RRR, no murmur, no pretibial edema Abd: normal BS, soft, non-tender Ext: no cyanosis, no calf tenderness Neuro: A&O x 3, no focal deficits noted, normal affect Skin: warm, dry; right upper inner thigh with scab Results & Data Results & Data ([facility]) Vital Signs (Past 12 Hours) Vital Signs Temp Pulse Pulse Resp BP BP Pulse Ox 01/27/21 20:40 91 H 20 95 01/27/21 20:30 92 H 17 138/75 95 01/27/21 20:20 94 H 24 95 01/27/21 20:15 95 H 21 142/77 H 94 01/27/21 20:10 100 H 20 95 01/27/21 20:00 100 H 37 H 149/78 H 96 01/27/21 19:50 102 H 27 H 95 01/27/21 19:45 101 H 26 H 152/82 H 95 01/27/21 19:40 101 H 22 94 01/27/21 19:30 113 H 26 H 95 01/27/21 19:20 94 H 29 H 94 01/27/21 19:15 94 H 28 H 190/101 H 95 01/27/21 19:10 93 H 23 95 01/27/21 19:00 99 H 19 213/110 H 01/27/21 18:55 99 H 33 H 203/113 H 96 01/27/21 18:50 92 H 27 H 95 01/27/21 18:40 93 H 28 H 93 01/27/21 18:30 92 H 25 H 181/90 H 95 01/27/21 18:28 92 H 28 H 94 01/27/21 18:27 92 H 16 168/96 H 94 07/02/21 18:24 93 H 29 H 168/96 H 94 01/27/21 17:58 38.1 C H 98 H 18 179/92 H 95 Laboratory Results Short CBC 01/27/21 Range/Units 19:15 WBC 8.57 (4.8-10.8) K/uL Hgb 15.0 (14.0-18.0) g/dL Hct 43.5 (42-52) % Plt Count 129 L (130-400) K/uL BMP 01/27/21 19:15 Sodium 136 Potassium 4.3 Chloride 105 Carbon Dioxide 28 BUN 24 H Creatinine 1.10 Glucose 114 H Calcium 8.7 Cardiac Enzymes 01/27/21 Range/Units 19:15 Troponin I < 0.015 (0-0.045) ng/ml Liver Function 01/27/21 Range/Units 19:15 Total Bilirubin 1.0 (0.2-1) mg/dl AST 23 (15-37) U/L ALT 45 (12-78) U/L Alkaline Phosphatase 58 (45-117) U/L Albumin 3.8 (3.4-5.0) gm/dl Urine 01/27/21 Range/Units 18:15 Urine Color Yellow Urine Appearance Clear (Clear) Urine pH 5.0 (4.5-7.5) Ur Specific [place] 1.028 (1.000-1.030) Urine Protein Negative (Negative) Urine Glucose (UA) Negative (Negative) Supervising Physician Co-Signing Physician Notes IM ATTENDING : Patient seen and examined. History obtained from patient and records. Preceding documentation by Ms. Zulma Pizarro PA-C reviewed. FINAL ASSESSMENT AND PLAN as follows : Sepsis secondary to possible tickborne infection Hypertension, elevated upon arrival at the ER, currently improved after nighttime beta-leticia administered CAD status post stent/hx PVD/history TIA as per records Hyperlipidemia on statin Rx Thrombocytopenia secondary to illness Steroid-induced hyperglycemia, recent outpatient steroid course for back pain rule out DM Past tobacco abuse GMF CS, Doxycycline Follow tickborne infection panel Check hemoglobin A1c DVT prophylaxis. SCDs RE thrombocytopenia Full code Text document was generated using [employer] voice recognition software. It may contain grammatical or spelling errors. Kindly contact undersigned for clarification of any documentation item in question.
[2021-01-27 21:52] LABS: Thyroid Stimulating Hormone 0.351 uIu/ml (0.300-4.500)
[2021-01-27] MEDS ORDERED: METOPROLOL SUCC 25MG EXT REL TAB PO SCH (22:45)
[2021-01-28] MEDS ORDERED: SODIUM CHLORIDE 0.9% 1000ML 1,000 ML IV ONE (00:52)
[2021-01-28] MEDS ORDERED: traMADol HCL 50 MG TABLET PO PRN (00:52)
[2021-01-28] MEDS ORDERED: ACETAMINOPHEN 325 MG TAB PO PRN (00:52)
[2021-01-28] MEDS ORDERED: PROMETHAZINE HCL 6.25 MG in SODIUM CHLORIDE 0.9% 50 ML IV PRN (00:52)
[2021-01-28] MEDS: TAMSULOSIN HCL 0.4 MG CAP PO SCH ×2 (01:49→20:15)
[2021-01-28] MEDS: CLOPIDOGREL BISULFATE 75 MG TAB PO SCH ×2 (01:50→20:14)
[2021-01-28 05:31] LABS: Basophils # (auto) 0.02 K/uL (0-0.2); Basophils % (auto) 0.3 %; Eosinophils % (auto) 1.3 %; Hematocrit (blood only) 41.9 % (42-52); Immature Granulocytes # (auto) 0.02 K/uL (0.00-0.02); Immature Granulocytes % (auto) 0.3 %; Lymphocytes # (auto) 0.57 K/uL (1.2-3.4); Lymphocytes % (auto) 7.7 %; Mean Corpuscular Hemoglobin 32.9 pg (25-34); Mean Corpuscular Hgb Conc 33.4 g/dL (32-36); Mean Corpuscular Volume 98.6 fL (80-100); Mean Platelet Volume 9.1 fL (7.4-10.4); Monocytes # (auto) 0.73 K/uL (0.11-0.59); Monocytes % (auto) 9.9 %; Neutrophils # (auto) 5.97 K/uL (1.4-6.5); Neutrophils % (auto) 80.5 %; Platelet Count 119 K/uL (130-400); RDW Coefficient of Variation 14.4 % (11.5-14.5); RDW Standard Deviation 52.1 fL (36.4-46.3); Red Blood Count 4.25 M/uL (4.7-6.1); White Blood Count 7.41 K/uL (4.8-10.8)
[2021-01-28 05:54] LABS: BUN Creatinine Ratio 20.4 (10-20); Calcium 8.3 mg/dl (8.5-10.1); Creatinine Clr Calc Pharmacy 63.4 ml/min; Est GFR (African American) 79.1 ml/min; Est GFR (Non-African American) 68.3 ml/min
[2021-01-28 06:04] LABS: Estimated Average Glucose 120 mg/dl; Hemoglobin A1C 5.8 % (4.5-5.6)
[2021-01-28] MEDS: PANTOprazole 40 MG TAB PO SCH (06:10)
[2021-01-28] MEDS: DOXYCYCLINE HYCLATE 100 MG CAP PO SCH ×2 (08:05→20:15)
[2021-01-28] MEDS: ASPIRIN 81 MG ECTAB PO SCH (08:05)
[2021-01-28] MEDS: ISOSORBIDE MONO EXTENDED REL 30 MG TABCR PO SCH (08:06)
[2021-01-28] MEDS: valACYclovir HCL 500 MG TABLET PO SCH (08:06)
--- NOTE | 2021-01-28 15:50 | Hospitalist Progress Note ---
Date of Service January 28, 2021 Assessment & Plan (1) Fever: Sepsis Likely due to tickborne infection Lyme screen negative Thrombocytopenia: Secondary to above Ambulatory dysfunction CT ABD: Nonspecific fluid filled small bowel loops, mild enteritis can not be excluded CXR:No acute intrathoracic findings. Right-sided thoracic inlet mass consistent with a thyroid goiter. No evidence of acute parenchymal consolidation. CT head:No acute intracranial findings Anaplasma PCR pending Continue IV fluids Continue doxycycline Clinically improving PT OT Thyroid goiter Incidental finding on imaging Normal TSH Follow-up as outpatient Prediabetes HbA1c 5.8 No strict glycemic control needed given advanced age Hypertension Continue metoprolol CAD S/P stent H/O PVD H/O TIA Continue aspirin, statin, isosorbide, metoprolol Hyperlipidemia on statin DVT Px: SCDs for now Code Status Full code Admission and Anticipated Discharge Date Admission Date: January 27, 2021 Subjective Patient is seen and examined at bedside Generalized weakness much improved today Afebrile today States feeling well today Denies chest pain, shortness breath, dizziness, nausea, abdominal pain Review of Systems Review of Systems: All systems reviewed & are unremarkable except as noted in HPI & below Physical Exam Physical Exam: Physical Exam: Vitals signs as noted above General Appearance:Moderately built and nourished, no apparent distress Head: normocephalic, Atraumatic Eyes: normal inspection, EOMI Neck: supple, Trachea midline Respiratory/Chest: Normal breath sounds, CTA, No accessory muscle use Cardiovascular: S1, S2, No murmur Abdomen/GI:Soft, Non tender, Bowel sounds present Extremities/Musculoskeletal:normal inspection, no edema Neurologic/Psych:AAOX3, grossly no focal neurological deficits Skin: normal color, warm Results & Data Results & Data ([facility]) Vital Signs (Past 12 Hours) Vital Signs Temp Pulse Resp BP Pulse Ox 01/28/21 15:34 37.1 C 69 16 144/72 H 96 01/28/21 07:20 37.0 C 85 15 161/90 H 96 Laboratory Results Short CBC 01/27/21 01/28/21 Range/Units 19:15 05:21 WBC 8.57 7.41 (4.8-10.8) K/uL Hgb 15.0 14.0 (14.0-18.0) g/dL Hct 43.5 41.9 L (42-52) % Plt Count 129 L 119 L (130-400) K/uL BMP 01/27/21 01/28/21 19:15 05:21 Sodium 136 137 Potassium 4.3 4.0 Chloride 105 106 Carbon Dioxide 28 28 BUN 24 H 21 H Creatinine 1.10 1.03 Glucose 114 H 96 Calcium 8.7 8.3 L Cardiac Enzymes 01/27/21 Range/Units 19:15 Troponin I < 0.015 (0-0.045) ng/ml Liver Function 01/27/21 Range/Units 19:15 Total Bilirubin 1.0 (0.2-1) mg/dl AST 23 (15-37) U/L ALT 45 (12-78) U/L Alkaline Phosphatase 58 (45-117) U/L Albumin 3.8 (3.4-5.0) gm/dl Urine 01/27/21 Range/Units 18:15 Urine Color Yellow Urine Appearance Clear (Clear) Urine pH 5.0 (4.5-7.5) Ur Specific [place] 1.028 (1.000-1.030) Urine Protein Negative (Negative) Urine Glucose (UA) Negative (Negative)
[2021-01-28] MEDS ORDERED: METOPROLOL SUCC 25MG EXT REL TAB PO SCH (21:00)
[2021-01-28] MEDS ORDERED: ATORVASTATIN 40 MG TAB PO SCH (21:00)
[2021-01-29] MEDS: PANTOprazole 40 MG TAB PO SCH (05:38)
[2021-01-29 06:16] LABS: Hematocrit (blood only) 41.7 % (42-52); Hemoglobin 14.2 g/dL (14.0-18.0); Mean Corpuscular Hemoglobin 32.9 pg (25-34); Mean Corpuscular Hgb Conc 34.1 g/dL (32-36); Mean Corpuscular Volume 96.5 fL (80-100); Mean Platelet Volume 9.4 fL (7.4-10.4); Platelet Count 111 K/uL (130-400); RDW Coefficient of Variation 14.4 % (11.5-14.5); Red Blood Count 4.32 M/uL (4.7-6.1); White Blood Count 5.59 K/uL (4.8-10.8)
--- NOTE | 2021-01-29 06:24 | Electrocardiogram Report ---
Test Reason : Blood Pressure : / mmHG Vent. Rate : 098 BPM Atrial Rate : 098 BPM P-R Int : 174 ms QRS Dur : 096 ms QT Int : 328 ms P-R-T Axes : 045 -20 056 degrees QTc Int : 418 ms Poor data quality, interpretation may be adversely affected Normal sinus rhythm Poor R wave progression, consider anterior TX vs. lead placement vs. LVH Abnormal ECG When compared with ECG of 27-JAN-2021 12:25, Premature atrial complexes are no longer Present Confirmed by Aroldo Ragsdale ([id number]) on 01/29/2021 6:24:25 AM Referred By: REFERRED SELF Confirmed By:Aroldo Ragsdale
[2021-01-29 06:49] LABS: BUN Creatinine Ratio 17.4 (10-20); Calcium 8.6 mg/dl (8.5-10.1); Creatinine Clr Calc Pharmacy 64.1 ml/min; Est GFR (African American) 80.1 ml/min; Est GFR (Non-African American) 69.1 ml/min; Potassium 3.7 mmol/L (3.5-5.1)
[2021-01-29] MEDS: valACYclovir HCL 500 MG TABLET PO SCH (08:36)
[2021-01-29] MEDS: ASPIRIN 81 MG ECTAB PO SCH (08:36)
[2021-01-29] MEDS: DOXYCYCLINE HYCLATE 100 MG CAP PO SCH (08:36)
[2021-01-29] MEDS: ISOSORBIDE MONO EXTENDED REL 30 MG TABCR PO SCH (08:36)
--- NOTE | 2021-01-29 12:35 | Hospitalist Progress Note ---
Date of Service January 29, 2021 Assessment & Plan (1) Fever: Sepsis Likely due to tickborne infection Lyme screen negative Thrombocytopenia: Secondary to above Ambulatory dysfunction CT ABD: Nonspecific fluid filled small bowel loops, mild enteritis can not be excluded CXR:No acute intrathoracic findings. Right-sided thoracic inlet mass consistent with a thyroid goiter. No evidence of acute parenchymal consolidation. CT head:No acute intracranial findings Anaplasma PCR pending Received IV fluids Continue doxycycline for now Clinically improved Thyroid goiter Incidental finding on imaging Normal TSH Follow-up as outpatient Prediabetes HbA1c 5.8 No strict glycemic control needed given advanced age Hypertension Continue metoprolol CAD S/P stent H/O PVD H/O TIA Continue aspirin, statin, isosorbide, metoprolol Hyperlipidemia on statin DVT Px: SCDs for now Code Status Full code Admission and Anticipated Discharge Date Admission Date: January 27, 2021 Subjective Patient is seen and examined at bedside States feeling well Reports weakness completely resolved Eager to get discharged Offers no complaints Denies chest pain, shortness breath, dizziness, nausea, abdominal pain Review of Systems Review of Systems: All systems reviewed & are unremarkable except as noted in HPI & below Physical Exam Physical Exam: Physical Exam: Vitals signs as noted above General Appearance:Moderately built and nourished, no apparent distress Head: normocephalic, Atraumatic Eyes: normal inspection, EOMI Neck: supple, Trachea midline Respiratory/Chest: Normal breath sounds, CTA, No accessory muscle use Cardiovascular: S1, S2, No murmur Abdomen/GI:Soft, Non tender, Bowel sounds present Extremities/Musculoskeletal:normal inspection, no edema Neurologic/Psych:AAOX3, grossly no focal neurological deficits Skin: normal color, warm Results & Data Results & Data ([facility]) Vital Signs (Past 12 Hours) Vital Signs Temp Pulse Resp BP Pulse Ox 01/29/21 07:44 36.4 C L 69 15 154/97 H 96 Laboratory Results Short CBC 01/29/21 Range/Units 05:46 WBC 5.59 (4.8-10.8) K/uL Hgb 14.2 (14.0-18.0) g/dL Hct 41.7 L (42-52) % Plt Count 111 L (130-400) K/uL BMP 01/29/21 05:46 Sodium 138 Potassium 3.7 Chloride 107 Carbon Dioxide 28 BUN 18 Creatinine 1.02 Glucose 90 Calcium 8.6
--- NOTE | 2021-01-29 12:41 | Discharge Summary ---
Date of Service January 29, 2021 Admission HPI Per Admitting Provider Pt is 80 y/o M with PMH HTN, dyslipidemia, CKD III, CAD s/p stent, CVA, BPH, GERD presented to ER with complaint of fever and weakness x3 days. Patient states today having difficulty ambulating secondary to legs feeling weak and feeling like they are giving out on him. Reports had generalized headache yesterday. He has had decreased oral intake. He reports he gets headache when he does not eat and today he ate some food and headache resolved. Denies neck pain or stiffness. Had some nausea, no vomiting or diarrhea, no abdominal pain. Reports last week noticed what he initially thought was a pimple to right upper inner thigh however he then reports that it was a tick. 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 Denies ill contacts, recent travel. Had 2 doses Pfizer vaccine last dose was in 11/2020. Denies dizziness, syncope, vision changes, neck pain, CP, SOB, orthopnea, palpitations, cough, sore throat, choking, otalgia, rhinorrhea, abdominal pain, paresthesias, extremity edema, rashes, urinary symptoms. Was seen in ER this morning and discharged home and returned today secondary to continued fever and weakness. CT head: No acute changes, chest x-ray: No consolidation. CT abdomen/pelvis: No acute findings. WBC: 8, PLT: 129, LFTs WNL, lactate: 1.4, procalcitonin: 1.5, UA not consistent with infection. Lyme IgG AB and IgM AB-, anaplasmosis smear not consistent with anaplasmosis. Anaplasmosis PCR is pending. Patient being admitted for further treatment for suspected tickborne illness Admission Exam Per Admitting Provider Physical Exam Physical Exam: General: no distress, WDWN Head: normocephalic, atraumatic Eyes: PERRL, EOM's intact, conjunctiva non-injected, anicteric ENT: normal inspection external ears, nose, mucous membranes moist Neck: supple, trachea midline, non-tender, ROM intact Lungs: clear, no respiratory distress, no wheezing/rhonchi/rales CV: RRR, no murmur, no pretibial edema Abd: normal BS, soft, non-tender Ext: no cyanosis, no calf tenderness Neuro: A&O x 3, no focal deficits noted, normal affect Skin: warm, dry; right upper inner thigh with scab Principal Diagnosis Sepsis Likely due to tickborne infection Suspected Thyroid goiter Discharge Data Allergies Allergy/AdvReac Type Severity Reaction Status Date / Time No Known Allergies Allergy Unknown ` Verified 01/27/21 20:49 Consultations 01/27/21 20:24 ED Decision to Admit Stat Procedures Performed CT ABD: Nonspecific fluid filled small bowel loops, mild enteritis can not be excluded CXR:No acute intrathoracic findings. Right-sided thoracic inlet mass consistent with a thyroid goiter. No evidence of acute parenchymal consolidation. Hospital Course (1) Fever: Sepsis Likely due to tickborne infection Lyme screen negative Thrombocytopenia: Secondary to above Ambulatory dysfunction CT ABD: Nonspecific fluid filled small bowel loops, mild enteritis can not be excluded CXR:No acute intrathoracic findings. Right-sided thoracic inlet mass consistent with a thyroid goiter. No evidence of acute parenchymal consolidation. CT head:No acute intracranial findings Anaplasma PCR pending Received IV fluids Continue doxycycline for now Clinically improved Thyroid goiter Incidental finding on imaging Normal TSH Follow-up as outpatient Prediabetes HbA1c 5.8 No strict glycemic control needed given advanced age Hypertension Continue metoprolol CAD S/P stent H/O PVD H/O TIA Continue aspirin, statin, isosorbide, metoprolol Hyperlipidemia on statin DVT Px: SCDs for now Code Status Full code Total Time Total Time Spent Total Time Spent (In Minutes): 42 minutes Total Time Includes: Examination of the Patient, Discharge Planning, Medication Reconciliation, Communication With Other Providers and Other Discharge Plan Discharge Items Patient Disposition: Home - Self-Care Reason For Visit: SEPSIS Discharge Diagnosis: Sepsis Likely due to tickborne infection Suspected Thyroid goiter Condition on Discharge: Fair Activity: Per Instructions section Exercise/Sports: Wait until after follow-up appointment Non-emergency contact: Primary Care Provider Call non-emergency contact if: you have any medication questions, your symptoms worsen, your pain is concerning for you and you have a fever Follow-up/Referrals: Olga Montague, [Primary Care Provider] - Diet: Heart Healthy Addtl Attending Provider Instructions: Follow up with your Primary Care Physician in 1 week Your Serological PCR test for anaplasmosis is pending at the time of discharge. Follow-up with your physician for results. Continue doxycycline until your PCR test results. Discussed with your physician if you need to complete the course or can discontinue it based on results. You were incidentally noted to have possible thyroid goiter on imaging study. Follow-up with your physician for further management. Seek immediate medical attention if your symptoms reoccur or worsen Please take all medications as instructed on discharge list below. Please call if you have any questions or problems. You can reach a [facility] hospitalist on duty at [facility] 24 hours a day by calling [phone] Pending Studies at Discharge: Yes Studies:: PCR for Anaplasmosis Stand-Alone Forms: My [facility], Smoking Cessation Medications and DC Order Prescriptions: New doxycycline hyclate 100 mg Capsule 100 mg PO BID Qty: 17 RF: 0 Continued atorvastatin [Lipitor] 40 mg tablet 40 mg PO HS RF: 0 prednisone 10 mg tablet 0 mg PO DAILY RF: 0 isosorbide mononitrate 30 mg tablet extended release 24 hr 30 mg PO QAM RF: 0 clopidogrel [Plavix] 75 mg tablet 75 mg PO HS RF: 0 valacyclovir [Valtrex] 500 mg tablet 500 mg PO QAM RF: 0 aspirin [Aspirin Low Dose] 81 mg Tablet,Delayed Release (Dr/Ec) 162 mg PO QAM RF: 0 tamsulosin [Flomax] 0.4 mg capsule 0.4 mg PO HS RF: 0 pantoprazole [Protonix] 40 mg tablet,delayed release (DR/EC) 40 mg PO DAILYBB RF: 0 nitroglycerin [Nitrostat] 0.4 mg Tablet, Sublingual 0.4 mg sublingual UD RF: 0 metoprolol succinate [Toprol XL] 25 mg tablet extended release 24 hr 12.5 mg PO HS RF: 0 cyclobenzaprine 5 mg tablet 5 mg PO TID PRN (Reason: MUSCLE SPASMS) RF: 0 Discharge Orders: Discharge Order (Routine); Ordered 01/29/21 Ordered By: Hilario Phillips/Other Patient Handouts: Tick Bites Admission Data Admit Date/Time: 01/27/21 22:45 Attending Provider: Hilario Castillo Admit Provider: Krishna Muniz Primary Care Provider: Olga Montague Other Providers: Krishna Muniz Other Interventions: Discharge Summary Assessment (RN) Last Done: 01/29/21 12:53
== END 2021-01-29 14:46 | disposition home or self-care (01) | DRG 872 ==
LOC: ED 17:53 → 3W 22:45

== ENCOUNTER 2021-08-08 07:30 | Inpatient (IN) ==
--- NOTE | 2021-08-08 08:26 | Emergency Department Note ---
Impression & Plan Spinal stenosis, Low back pain, Acute lumbar radiculopathy ED Provider Note NAME: ANA PACHECO AGE: 81 SEX: M : 1940 ARRIVES VIA: Walk-In INFORMANT: Patient, ED PROVIDER(S): Sourav Bustillos DO CHIEF COMPLAINT: Low back pain HPI: The patient is an 81-year-old male who presented to emergency department for an evaluation of low back pain. The patient has a history of low back pain in the past. He has had surgery in his low back in the past. He was starting to have worsening symptoms especially over the last few months. He states that these symptoms started to become worse over the summer but over the last few weeks he has noticed some difficulty ambulating especially when trying to walk with the left leg. The patient denies having any saddle anesthesia. He has had no recent trauma. He did have a work-up which included an MRI. He was felt to have a surgical issue and was followed up with his primary spinal specialist. The patient noticed worsening symptoms especially over the weekend so he presen luis to the emergency department today for further evaluation. He denies having any chest pain or difficulty breathing. The patient has been holding his Plavix in anticipation of surgery for his back. He was felt to be in need of a decompression for spinal stenosis as well as possible fusion. The patient called his spinal specialist today and was referred to the emergency department. He denies having any recent trauma. He denies having any fever or chest pain. ROS: See above HPI for pertinent positives & negatives. A total of 10 systems reviewed and were otherwise negative. PAST MEDICAL HISTORY: See Below PAST SURGICAL HISTORY: See Below FAMILY HISTORY: See Below SOCIAL HISTORY: See Below HOME MEDICATIONS: See Below ALLERGIES: See Below VITALS: See Below PHYSICAL EXAMINATION: GENERAL: Patient is awake alert in no acute distress patient is resting comfor tably and showing no signs of anxiety EYES: The conjunctivae are clear. The pupils are round and reactive. EARS, NOSE, MOUTH AND THROAT: The nose is without any evidence of any deformity. NECK: The neck is nontender and supple. RESPIRATORY: Normal respiratory effort is noted there is no evidence of wheezing rhonchi or rales CARDIOVASCULAR: Regular rate and rhythm noted there no murmurs rubs or gallops normal S1 normal S2. GASTROINTESTINAL: The abdomen is soft. Abdomen is nontender. BACK: No midline tenderness was noted. There were preop changes noted especially in the upper lumbar lower thoracic spine. Range of motion appears intact. MUSCULOSKELETAL/EXTREMITIES: There is no evidence of gross deformity full range of motion is noted in the hips and shoulders. SKIN: There is no obvious evidence of any rash. There are no petechiae, pallor or cyanosis noted. NEUROLOGIC: Patient is awake alert and oriented x3. Patellar tendon reflexes were 1+ bilaterally. Achilles tendon reflexes were 1+ bilaterally. Great toe raise was asymmetric. The patient has weakness in the left great toe raise. MEDICAL DECISION MAKING: The patient is an 81-year-old male who presented to the emergency department for an evaluation of back pain. The patient has been having problems with ongoing back pain and radiculopathy. The patient has been having difficulty getting in for surgery. He is felt to have surgical requirement based on his radiographic studies as well as his exam. The patient returns emergency department today because of worsening symptoms especially over the last few days. I discussed his case with his primary orthopedic spinal specialist. He is recommended that the patient stay in the hospital and be considered for surgical treatment. The patient was agreeable this plan. Triage Nursing notes reviewed. Prior medical records reviewed Vital Signs: reviewed and remarkable for no significant abnormalities Differential diagnosis: Musculoskeletal, disc herniation, fracture, metastatic disease, cord compression, discitis, sciatica, cauda equina, infection, aortic disease, renal colic, gastrointestinal, as well as other pathologies. ER treatment provided: See below Diagnostics interpreted by me: ECG: none Laboratory studies: As stated above and show below. Imaging studies: See below Consultation(s): I discussed this case with Dr. Staples who is the patient's primary orthopedic sp inal specialist. Past Med/Surg History Medical History BPH (benign prostatic hyperplasia) CAD (coronary artery disease) 2008: GEM to RCA 2010: Known residual occlusion occlusion of the ramus intermedius that was not amenable to PCI (2010) > treated medically 2012: Mild distal left main disease and 90% ramus intermedius stenosis with left to left collaterals unchanged compared to prior. 40% LAD stenosis noted and RCA stents patent > treated medically CKD (chronic kidney disease), stage III CVA (cerebral vascular accident) ? CVA vs. TIA (2018, evaluated at [facility], no acute head/brain imaging findings- felt to be TIA per discharge summary) GERD (gastroesophageal reflux disease) controlled, stable per pt History of myocardial infarction 2008 > GEM to RCA Follows with [facility] cardiology (preop appt scheduled 06/28) HLD (hyperlipidemia) HTN (hypertension) stable, controlled per pt Surgical History H/O heart artery stent History of cardiac cath 2008: GEM to RCA 2010: Known residual occlusion occlusion of the ramus intermedius that was not amenable to PCI (2010) > treated medically 2012: Mild distal left main disease and 90% ramus intermedius stenosis with left to left collaterals unchanged compared to prior. 40% LAD stenosis noted and RCA stents patent > treated medically Hx of colonoscopy Hx of laminectomy Hx of repair of right rotator cuff Family History Mother Dementia Father Stroke Social History Smoking Status: Never smoker Second Hand Exposure: No; Hx Alcohol Use: No Hx Substance Use: No Preferred Language: Slovak Communication Ability: Effective Lath Tier Required: No Beliefs That Will Affect Care: None Current Living Situation: Spouse Feels Safe at Home: Yes Assistive Devices: Cane and Glasses Allergies Allergies Allergy/AdvReac Type Severity Reaction Status Date / Time tramadol AdvReac Mild Urinary Verified 08/08/21 09:01 Blockage Home Meds Home Medications Medication Instructions Recorded Confirmed aspirin 81 mg tablet,delayed 162 mg PO QAM 01/27/21 08/08/21 release (Aspirin Low Dose) atorvastatin 40 mg tablet (Lipitor) 40 mg PO HS 01/27/21 08/08/21 clopidogrel 75 mg tablet (Plavix) 75 mg PO HS 01/27/21 08/08/21 isosorbide mononitrate 30 mg 30 mg PO QAM 01/27/21 08/08/21 tablet,extended release 24 hr metoprolol succinate 25 mg 12.5 mg PO HS 01/27/21 08/08/21 tablet,extended release 24 hr (Toprol XL) nitroglycerin 0.4 mg sublingual 0.4 mg SUBLINGUAL UD 01/27/21 08/08/21 tablet (Nitrostat) pantoprazole 40 mg tablet,delayed 40 mg PO QAM 01/27/21 08/08/21 release (Protonix) valacyclovir 500 mg tablet 500 mg PO QAM 01/27/21 08/08/21 (Valtrex) oxycodone-acetaminophen 5 mg-325 1 tab PO Q6H PRN 05/14/21 08/08/21 mg tablet (Percocet) lidocaine HCl 4 % (40 mg/mL) 1 applic TOPICAL UD 08/08/21 08/08/21 mucosal solution Results & Data (ED) Vital Signs Vital Signs - 24 hr 08/08/21 07:34 08/08/21 08:31 08/08/21 12:00 Temperature 36.7 C Temperature Source Temporal Artery Scan Pulse Rate 75 Pulse Rate [Finger] 66 Pulse Rhythm Regular Pulse Strength Normal Respiratory Rate 17 16 Respiratory Effort / Characteristics Non-Labored Spontaneous Non-Labored Respiratory Depth Normal Normal Respiratory Pattern Regular Blood Pressure 164/85 H Blood Pressure [Right Arm] 158/78 H 136/79 Blood Pressure Mean 111 Blood Pressure Mean [Right Arm] 104 98 Pulse Oximetry 98 98 Oxygen Delivery Method Room Air Sepsis Recent Fever Within 48 Hours No Sepsis New/Unexplained Change in Mental Status No Sepsis Action Taken by Nursing No Action Required Home Medications Current Medication List: was personally reviewed by me Laboratory Data Attestation: I reviewed the patient's lab results. Result diagrams: 08/08/21 08:24 08/08/21 08:24 Lab Results 08/08/21 08/08/21 08/08/21 Range/Units 08:24 08:24 08:24 WBC 5.62 (4.8-10.8) K/uL RBC 4.11 L (4.7-6.1) M/uL Hgb 13.6 L (14.0-18.0) g/dL Hct 41.0 L (42-52) % MCV 99.8 (80-100) fL MCH 33.1 (25-34) pg MCHC 33.2 (32-36) g/dL RDW Std Deviation 49.6 H (36.4-46.3) fL RDW Coeff of Bradley 13.7 (11.5-14.5) % Plt Count 153 (130-400) K/uL MPV 9.3 (7.4-10.4) fL Immature Gran % (Auto) 0.2 % Neut % (Auto) 70.2 % Lymph % (Auto) 17.3 % Person % (Auto) 10.0 % Eos % (Auto) 1.8 % Baso % (Auto) 0.5 % Neut # (Auto) 3.95 (1.4-6.5) K/uL Lymph # (Auto) 0.97 L (1.2-3.4) K/uL Person # (Auto) 0.56 (0.11-0.59) K/uL Eos # (Auto) 0.10 (0-0.5) K/uL Baso # (Auto) 0.03 (0-0.2) K/uL Immature Gran # (Auto) 0.01 (0.00-0.02) K/uL PT 11.0 (9.0-12.0) Seconds INR 1.1 (0.9-1.1) Sodium 138 (136-145) mmol/L Potassium 4.1 (3.5-5.1) mmol/L Chloride 106 (98-107) mmol/L Carbon Dioxide 30 (21-32) mmol/L Anion Gap 2.0 L (3-11) BUN 19 H (7-18) mg/dl Creatinine 1.08 (0.6-1.4) mg/dl Est Cr Clr Drug Dosing Not Reportable Est GFR ( Amer) 74.2 ml/min Est GFR (Non-Af Amer) 64.0 ml/min BUN/Creatinine Ratio 17.2 (10-20) Glucose 99 (70-99) mg/dl Calcium 9.2 (8.5-10.1) mg/dl Total Bilirubin 0.8 (0.2-1) mg/dl AST 15 (15-37) U/L ALT 25 (12-78) Alkaline Phosphatase 47 (45-117) U/L Total Protein 6.5 (6.4-8.2) gm/dl Albumin 3.6 (3.4-5.0) gm/dl Globulin 2.9 (2.5-4.0) gm/dl Albumin/Globulin Ratio 1.2 (0.9-2) Lipase 68 L (73-393) U/L SARS-CoV-2, RNA, NAAT (NEGATIVE) 08/08/21 Range/Units 08:35 WBC (4.8-10.8) K/uL RBC (4.7-6.1) M/uL Hgb (14.0-18.0) g/dL Hct (42-52) % MCV (80-100) fL MCH (25-34) pg MCHC (32-36) g/dL RDW Std Deviation (36.4-46.3) fL RDW Coeff of Bradley (11.5-14.5) % Plt Count (130-400) K/uL MPV (7.4-10.4) fL Immature Gran % (Auto) % Neut % (Auto) % Lymph % (Auto) % Person % (Auto) % Eos % (Auto) % Baso % (Auto) % Neut # (Auto) (1.4-6.5) K/uL Lymph # (Auto) (1.2-3.4) K/uL Person # (Auto) (0.11-0.59) K/uL Eos # (Auto) (0-0.5) K/uL Baso # (Auto) (0-0.2) K/uL Immature Gran # (Auto) (0.00-0.02) K/uL PT (9.0-12.0) Seconds INR (0.9-1.1) Sodium (136-145) mmol/L Potassium (3.5-5.1) mmol/L Chloride (98-107) mmol/L Carbon Dioxide (21-32) mmol/L Anion Gap (3-11) BUN (7-18) mg/dl Creatinine (0.6-1.4) mg/dl Est Cr Clr Drug Dosing Est GFR ( Amer) ml/min Est GFR (Non-Af Amer) ml/min BUN/Creatinine Ratio (10-20) Glucose (70-99) mg/dl Calcium (8.5-10.1) mg/dl Total Bilirubin (0.2-1) mg/dl AST (15-37) U/L ALT (12-78) Alkaline Phosphatase (45-117) U/L Total Protein (6.4-8.2) gm/dl Albumin (3.4-5.0) gm/dl Globulin (2.5-4.0) gm/dl Albumin/Globulin Ratio (0.9-2) Lipase (73-393) U/L SARS-CoV-2, RNA, NAAT NEGATIVE (NEGATIVE) Discharge Plan Visit Data Chief Complaint: Leg Injury/Pain Stated Complaint: BILATERAL LEG PAIN,BACK PAIN,DECREASED MOBILITY ED Provider: Sourav Bustillos Discharge Problem: Spinal stenosis, Low back pain, Acute lumbar radiculopathy Patient Disposition: Being Evaluated by Surgeon Forms Stand Alone Forms: [facility] Prescriptions Prescriptions: No Action atorvastatin [Lipitor] 40 mg tablet 40 mg PO HS RF: 0 isosorbide mononitrate 30 mg tablet extended release 24 hr 30 mg PO QAM RF: 0 clopidogrel [Plavix] 75 mg tablet 75 mg PO HS RF: 0 valacyclovir [Valtrex] 500 mg tablet 500 mg PO QAM RF: 0 aspirin [Aspirin Low Dose] 81 mg Tablet,Delayed Release (Dr/Ec) 162 mg PO QAM RF: 0 pantoprazole [Protonix] 40 mg tablet,delayed release (DR/EC) 40 mg PO QAM RF: 0 nitroglycerin [Nitrostat] 0.4 mg Tablet, Sublingual 0.4 mg sublingual UD RF: 0 metoprolol succinate [Toprol XL] 25 mg tablet extended release 24 hr 12.5 mg PO HS RF: 0 oxycodone-acetaminophen [Percocet] 5-325 mg tablet 1 tab PO Q6H PRN (Reason: Pain) RF: 0 lidocaine HCl 4 % (40 mg/mL) solution 1 applic topical UD RF: 0 Referrals Referrals: Olga Montague DO [Primary Care Provider] -
[2021-08-08 08:43] LABS: Basophils # (auto) 0.03 K/uL (0-0.2); Basophils % (auto) 0.5 %; Eosinophils % (auto) 1.8 %; Hemoglobin 13.6 g/dL (14.0-18.0); Immature Granulocytes # (auto) 0.01 K/uL (0.00-0.02); Immature Granulocytes % (auto) 0.2 %; Lymphocytes # (auto) 0.97 K/uL (1.2-3.4); Lymphocytes % (auto) 17.3 %; Mean Corpuscular Hemoglobin 33.1 pg (25-34); Mean Corpuscular Hgb Conc 33.2 g/dL (32-36); Mean Corpuscular Volume 99.8 fL (80-100); Mean Platelet Volume 9.3 fL (7.4-10.4); Monocytes # (auto) 0.56 K/uL (0.11-0.59); Neutrophils # (auto) 3.95 K/uL (1.4-6.5); Neutrophils % (auto) 70.2 %; Platelet Count 153 K/uL (130-400); RDW Coefficient of Variation 13.7 % (11.5-14.5); RDW Standard Deviation 49.6 fL (36.4-46.3); Red Blood Count 4.11 M/uL (4.7-6.1); White Blood Count 5.62 K/uL (4.8-10.8)
[2021-08-08 08:55] LABS: INR 1.1 (0.9-1.1)
[2021-08-08 09:07] LABS: Alanine Aminotransferase 25 (12-78); Albumin Level 3.6 gm/dl (3.4-5.0); Aspartate Aminotransferase 15 U/L (15-37); BUN Creatinine Ratio 17.2 (10-20); Blood Urea Nitrogen 19 mg/dl (7-18); Calcium 9.2 mg/dl (8.5-10.1); Carbon Dioxide 30 mmol/L (21-32); Chloride 106 mmol/L (98-107); Est GFR (African American) 74.2 ml/min; Glucose 99 mg/dl (70-99); Lipase 68 U/L (73-393); Potassium 4.1 mmol/L (3.5-5.1); Sodium 138 mmol/L (136-145)
[2021-08-08 09:10] LABS: Albumin Globulin Ratio 1.2 (0.9-2); Alkaline Phosphatase 47 U/L (45-117); Bilirubin,Total 0.8 mg/dl (0.2-1); Globulin 2.9 gm/dl (2.5-4.0); Total Protein 6.5 gm/dl (6.4-8.2)
--- NOTE | 2021-08-08 10:31 | History & Physical Report ---
Date of Service August 08, 2021 Assessment & Plan (1) Neurogenic claudication due to lumbar spinal stenosis: Plan: severe stenosis with neurodeficits. Revision decompression fusion L3-5. History of Present Illness Chief Complaint: bilateral leg pain Primary Care Provider: Olga Montague DO 81 yo with worsening spinal stenosis. Failed nonoperative care and severe limitations with ambulation and leg weakness Allergies Allergy/AdvReac Type Severity Reaction Status Date / Time tramadol AdvReac Mild Urinary Verified 08/08/21 09:01 Blockage Home Medications Medication Instructions Recorded Confirmed Type aspirin 81 mg tablet,delayed 162 mg PO QAM 01/27/21 08/08/21 History release (Aspirin Low Dose) atorvastatin 40 mg tablet (Lipitor) 40 mg PO HS 01/27/21 08/08/21 History clopidogrel 75 mg tablet (Plavix) 75 mg PO HS 01/27/21 08/08/21 History isosorbide mononitrate 30 mg 30 mg PO QAM 01/27/21 08/08/21 History tablet,extended release 24 hr metoprolol succinate 25 mg 12.5 mg PO HS 01/27/21 08/08/21 History tablet,extended release 24 hr (Toprol XL) nitroglycerin 0.4 mg sublingual 0.4 mg SUBLINGUAL UD 01/27/21 08/08/21 History tablet (Nitrostat) pantoprazole 40 mg tablet,delayed 40 mg PO QAM 01/27/21 08/08/21 History release (Protonix) valacyclovir 500 mg tablet 500 mg PO QAM 01/27/21 08/08/21 History (Valtrex) oxycodone-acetaminophen 5 mg-325 1 tab PO Q6H PRN 05/14/21 08/08/21 History mg tablet (Percocet) lidocaine HCl 4 % (40 mg/mL) 1 applic TOPICAL UD 08/08/21 08/08/21 History mucosal solution Past Med/Surg History Medical History BPH (benign prostatic hyperplasia) CAD (coronary artery disease) 2009: GEM to RCA 2011: Known residual occlusion occlusion of the ramus intermedius that was not amenable to PCI (2010) > treated medically 2012: Mild distal left main disease and 90% ramus intermedius stenosis with left to left collaterals unchanged compared to prior. 40% LAD stenosis noted and RCA stents patent > treated medically CKD (chronic kidney disease), stage III CVA (cerebral vascular accident) ? CVA vs. TIA (2018, evaluated at [facility], no acute head/brain imaging findings- felt to be TIA per discharge summary) GERD (gastroesophageal reflux disease) controlled, stable per pt History of myocardial infarction 2008 > GEM to RCA Follows with [facility] cardiology (preop appt scheduled 06/28) HLD (hyperlipidemia) HTN (hypertension) stable, controlled per pt Surgical History H/O heart artery stent History of cardiac cath 2009: GEM to RCA 2010: Known residual occlusion occlusion of the ramus intermedius that was not amenable to PCI (2010) > treated medically 2012: Mild distal left main disease and 90% ramus intermedius stenosis with left to left collaterals unchanged compared to prior. 40% LAD stenosis noted and RCA stents patent > treated medically Hx of colonoscopy Hx of laminectomy Hx of repair of right rotator cuff Family History Mother Dementia Father Stroke Social History Smoking Status: Never smoker Second Hand Exposure: No; Hx Alcohol Use: No Hx Substance Use: No Preferred Language: Polish Communication Ability: Effective Servicer Required: No Beliefs That Will Affect Care: None Current Living Situation: Spouse Feels Safe at Home: Yes Assistive Devices: Cane and Glasses Physical Exam Physical Exam: foot drop on the left. Quads 4-/5 bl. Results & Data ([facility]) Vital Signs (Past 12 Hours) Vital Signs Temp Pulse Pulse Resp BP BP Pulse Ox 08/08/21 08:31 66 16 158/78 H 98 08/08/21 07:34 36.7 C 75 17 164/85 H 98
[2021-08-08] MEDS ORDERED: ONDANSETRON 4 MG OD TAB PO PRN (14:46)
[2021-08-08] MEDS ORDERED: NALOXONE HCL 0.4 MG/1 ML VIAL/CARP IV PRN (14:46)
[2021-08-08] MEDS ORDERED: ACETAMINOPHEN 1,000 MG/100 ML VIAL IV PRN (14:46)
[2021-08-08] MEDS ORDERED: LORazepam 0.5 MG TAB PO PRN (14:46)
[2021-08-08] MEDS ORDERED: METOCLOPRAMIDE HCL INJ 5 MG/ML 2 ML VIAL IV PRN (14:46)
[2021-08-08] MEDS ORDERED: ALUMINUM/MAGNESIUM SUSP 30 ML UDC PO PRN (14:46)
[2021-08-08] MEDS ORDERED: diphenhydrAMINE Capsule 25 MG CAP PO PRN (14:46)
[2021-08-08] MEDS ORDERED: PROMETHAZINE HCL 12.5 MG in SODIUM CHLORIDE 0.9% 50 ML IV PRN (14:46)
[2021-08-08] MEDS ORDERED: NITROGLYCERIN SL 0.4 MG/TAB TAB SL SCH (14:46)
[2021-08-08] MEDS ORDERED: HYDROmorphone INJ 1 MG/ML SYRINGE IV PRN (14:46)
[2021-08-08] MEDS ORDERED: ONDANSETRON INJ 2 MG/ML 2 ML VIAL IV PRN (14:46)
[2021-08-08] MEDS ORDERED: hydrOXYzine HCl 25 MG TAB PO PRN (14:46)
[2021-08-08] MEDS ORDERED: MAGNESIUM HYDROXIDE SUSP 30 ML UDC PO PRN (14:46)
[2021-08-08] MEDS ORDERED: HYDROmorphone INJ 0.5 MG/0.5 ML SYR IV PRN (14:46)
[2021-08-08] MEDS ORDERED: LORazepam 0.5 MG/1 ML VIAL IV PRN (14:46)
--- NOTE | 2021-08-08 15:09 | Hospitalist Consultation ---
Date of Consultation August 08, 2021 Assessment & Plan (1) Spinal stenosis: (2) Acute lumbar radiculopathy: (3) Neurogenic claudication due to lumbar spinal stenosis: - Dr. Staples to perform surgical lumbar decompression tomorrow, primary team - Holding plavix while anticipating surgery - Keep NPO at midnight and allow diet today - Negative COVID-19 on admission. Was previously positive on 07/24 but asymptomatic. Had swab on 08/02 which was negative. Currently asymptomatic. Fully vaccinated and got booster in May 2021. - Pain control and bowel regimen on board - PDMP reviewed showing oxycodone-acetaminophen use, continue (4) CAD (coronary artery disease): - Hx of such, s/p stenting x 2 in RCA in 2008, Had cardiac cath in 2010 due to abnormal stress test but demonstrated patent RCA stents. there was a 100% occlusion of the ramus found to be filling the left-left collaterals. PTCA was attempted bu unsuccessful. Mar 2012 had another cardiac cath which revealed mildly diseased left main, severely diseased ramus with 90% stenosis of left-left collaterals. LAD had 40 % stenosis in midvessel. RCA stens were patent. Imdur was increased for and medical management was recommended. - Cont metoprolol succ 12.5 mg HS, imdur 30 mg QAM, asa 162 mg daily - Follows with Dr. Payne, previously cleared by cardiology in Jun. (5) HTN (hypertension): - Cont antihypertensive medications as above (6) HLD (hyperlipidemia): - Cont atorvastatin 40 mg HS (7) CKD (chronic kidney disease), stage III: - Cr/BUN appears to be at baseline of 1.3 (8) CVA (cerebral vascular accident): - hx of such in December 2017, asa was titrated to 325 daily for 3 months then reduced to 162 daily, which he can continue. (9) BPH (benign prostatic hyperplasia): - noted, chronic DVT ppx: teds, scds, asa, anticipating surgical procedure tomorrow CODE: Full code Dispo: From home, likely to remain in the hospital x 1-2 days. Supervising Physician Co-Signing Physician Notes Pt seen and examined by me, care coordinated w/ Jessy Esparza PA-C, pls refer to her note above for further detail. Pt is an 81 yo M w/ CAD s/p 2 stents, HLD, HTN, CKD stage III, carotid stenosis, hx of TIA, GERD, BPH and previous spinal stenosis with hx of back surgery with fusion of L3-L5 in 2012 who now presents . He has been holding plavix since . History of Present Illness Reason for Consultation: Medical management Requesting Physician: Dr. Staples Attending Physician: Tonio Staples, DO History of Present Illness This is a 81 yo M with PMHx of CAD s/p 2 stents, HLD, HTN, CKD stage III, carotid stenosis, hx of TIA, GERD, BPH and previous spinal stenosis with hx of back surgery with fusion of L3-L5 in 2012. He was initially anticipated to have surgery 4 months ago, but due to surge of COVID-19 cases, surgery was cancelled by the hospital facility several times. He has been holding plavix since Jul 21 in anticipation of the surgery, with the last date of Jul 26, which again was cancelled. Pt presented to the ER with acute worsening of lower back pain and right leg complaints. This has progressively worsened over the past 6 months, but acutely worsened over the weekend. He is experiencing worsening lower back pain, weakness in the right hip flexor compared to left, and increased numbness in the right thigh to the level ~4 inches above the knee. He denies any saddle anesthesia, bowel or bladder incontinence. His balance has progressively worsened and uses a cane at all times. Denies falls. His is present at bedside and supports the history. Pt notes remote smoking history 30 years ago, and used to drink wine at dinner, but no longer does. He notes having a wine cellar in his home here in [place] with over 1200 bottles. He and his also have a home in [place]. Pt anticipates lumbar spinal decompression tomorrow. Medicine has been consulted for medical management. Allergies Allergy/AdvReac Type Severity Reaction Status Date / Time tramadol AdvReac Mild Urinary Verified 08/08/21 09:01 Blockage Home Medications Medication Instructions Recorded Confirmed Type aspirin 81 mg tablet,delayed 162 mg PO QAM 01/27/21 08/08/21 History release (Aspirin Low Dose) atorvastatin 40 mg tablet (Lipitor) 40 mg PO HS 01/27/21 08/08/21 History clopidogrel 75 mg tablet (Plavix) 75 mg PO HS 01/27/21 08/08/21 History isosorbide mononitrate 30 mg 30 mg PO QAM 01/27/21 08/08/21 History tablet,extended release 24 hr metoprolol succinate 25 mg 12.5 mg PO HS 01/27/21 08/08/21 History tablet,extended release 24 hr (Toprol XL) nitroglycerin 0.4 mg sublingual 0.4 mg SUBLINGUAL UD 01/27/21 08/08/21 History tablet (Nitrostat) pantoprazole 40 mg tablet,delayed 40 mg PO QAM 01/27/21 08/08/21 History release (Protonix) valacyclovir 500 mg tablet 500 mg PO QAM 01/27/21 08/08/21 History (Valtrex) oxycodone-acetaminophen 5 mg-325 1 tab PO Q6H PRN 05/14/21 08/08/21 History mg tablet (Percocet) lidocaine HCl 4 % (40 mg/mL) 1 applic TOPICAL UD 08/08/21 08/08/21 History mucosal solution oxycodone 5 mg tablet 5 mg PO Q6H PRN #30 tab 08/10/21 Rx Patient History Medical History BPH (benign prostatic hyperplasia) CAD (coronary artery disease) 2009: GEM to RCA 2010: Known residual occlusion occlusion of the ramus intermedius that was not amenable to PCI (2010) > treated medically 2012: Mild distal left main disease and 90% ramus intermedius stenosis with left to left collaterals unchanged compared to prior. 40% LAD stenosis noted and RCA stents patent > treated medically CKD (chronic kidney disease), stage III CVA (cerebral vascular accident) ? CVA vs. TIA (2018, evaluated at [facility], no acute head/brain imaging findings- felt to be TIA per discharge summary) GERD (gastroesophageal reflux disease) controlled, stable per pt History of myocardial infarction 2008 > GEM to RCA Follows with [facility] cardiology (preop appt scheduled 06/28) HLD (hyperlipidemia) HTN (hypertension) stable, controlled per pt Surgical History H/O heart artery stent History of cardiac cath 2009: GEM to RCA 2010: Known residual occlusion occlusion of the ramus intermedius that was not amenable to PCI (2010) > treated medically 2012: Mild distal left main disease and 90% ramus intermedius stenosis with left to left collaterals unchanged compared to prior. 40% LAD stenosis noted and RCA stents patent > treated medically Hx of colonoscopy Hx of laminectomy Hx of repair of right rotator cuff Family History Mother Dementia Father Stroke Social History Smoking Status: Former smoker Smoking End Date: 30 years ago; Second Hand Exposure: No; Do You Dip or Chew Tobacco: No; Hx Alcohol Use: No Hx Substance Use: No Preferred Language: Portuguese Communication Ability: Effective Photogrammetric Compilation Specialist Required: No Beliefs That Will Affect Care: None Current Living Situation: Spouse Other Information That Helps Us Care for You: No Feels Safe at Home: Yes Safety Concerns: Feels Safe At This Time Assistive Devices: Walker Assistive Devices Comment: Pt states that he own hearing aids, but does no wear them. Review of Systems Review of Systems: Constitutional: No fever, sweats or chills Eyes: No diplopia, no worsening or blurred vision ENT: normal hearing, no trouble swallowing Respiratory: No cough, sputum, dyspnea at rest or on exertion Cardiovascular: No chest pain, tightness or palpitations Abdomen: No pain, nausea, vomiting, diarrhea or constipation Back: As per HPI Musculoskeletal: No joint pain, calf pain, swelling Neurologic: + worsening lower extremity weakness, numbness/tingling, and balance problems per HPI. Psychiatric: No anxiety or depression Skin: No rash or itch Physical Exam Physical Exam: General: awake, alert, no apparent distress Head: Normocephalic, atraumatic ENT: PERRL, EOMI, no pharyngeal exudate, mucous membranes moist Chest: Clear to auscultation, on room air, no adventitious breath sounds Cardiac: Regular rate and rhythm, no murmur, no JVD, normal peripheral pulses, good capillary refill Abdominal: NABS x 4 quadrants, soft, nondistended, nontender to palpation, no rebound or guarding Back: No point tenderness over spinal area or SI joints Extremities: Normal inspection, no peripheral edema or erythema, calfs nontender to palpation. Slight weakness noted with Right hip flexion compared to the left. Psych: Normal mood and affect Neuro: AAO x 3, strength intact bilaterally and rated 5/5, no motor deficits, speech is clear, no peripheral sensory deficits Results & Data Results & Data ([facility]) Vital Signs (Past 12 Hours) Vital Signs Temp Pulse Pulse Resp BP BP Pulse Ox 08/08/21 12:00 136/79 08/08/21 08:31 66 16 158/78 H 98 08/08/21 07:34 36.7 C 75 17 164/85 H 98 (1) Spinal stenosis Spinal region: unspecified Qualified Code(s): M48.00 - Spinal stenosis, site unspecified
[2021-08-08] MEDS: SODIUM CHLORIDE 0.9% 1000ML 1,000 ML IV SCH (15:27)
[2021-08-08] MEDS: oxyCODONE HCL IR 5 MG TAB (IMMEDIATE RELEASE) PO PRN (19:43)
[2021-08-08] MEDS: METOPROLOL SUCC 25MG EXT REL TAB PO SCH (21:00)
[2021-08-08] MEDS: ATORVASTATIN 40 MG TAB PO SCH (21:00)
[2021-08-09] MEDS: SODIUM CHLORIDE 0.9% 1000ML 1,000 ML IV SCH ×4 (03:50→20:52)
[2021-08-09] MEDS ORDERED: ceFAZolin 2000MG 2,000 MG/15 ML SYR IV SCH (06:00)
[2021-08-09] MEDS: ISOSORBIDE MONO EXTENDED REL 30 MG TABCR PO SCH (09:00)
[2021-08-09] MEDS: PANTOprazole 40 MG TAB PO SCH (10:04)
[2021-08-09] MEDS: ASPIRIN 81 MG ECTAB PO SCH (10:04)
[2021-08-09] MEDS ORDERED: MEPERIDINE HCL 25 MG/ML CARP/VIAL IV PRN (10:56)
[2021-08-09] MEDS ORDERED: LABETALOL HCL IV 5 MG/ML 20ML IV PRN (10:56)
[2021-08-09] MEDS ORDERED: ONDANSETRON INJ 2 MG/ML 2 ML VIAL IV PRN ×2 (10:56→17:04)
[2021-08-09] MEDS ORDERED: ePHEDrine sulfate 50 MG/ML AMP IV PRN (10:56)
[2021-08-09] MEDS ORDERED: PHENYLEPHRINE 100MCG/ML 5ML SYR IV PRN (10:56)
[2021-08-09] MEDS ORDERED: ATROPINE SULFATE 0.1 MG/ML 10ML SYR IV PRN (10:56)
[2021-08-09] MEDS ORDERED: fentaNYL citrate 100 MCG/2 ML VIAL ONE ×2 (11:10→15:14)
[2021-08-09] MEDS ORDERED: ROCURONIUM BROMIDE 10 MG/ML 5 ML VIAL IV ONE (11:10)
[2021-08-09] MEDS ORDERED: ONDANSETRON INJ 2 MG/ML 2 ML VIAL ONE (11:10)
[2021-08-09] MEDS ORDERED: DEXAMETHASONE SOD INJ 4 MG/ML VIAL ONE (11:10)
[2021-08-09] MEDS ORDERED: PROPOFOL IV EMULSION 10 MG/ML 20 ML VIAL IV ONE (11:10)
--- NOTE | 2021-08-09 12:36 | History & Physical Bridge Note ---
Date of Service August 09, 2021 History & Physical Bridge Note I have examined the patient, reviewed the History & Physical and in the interval since the performance of the History & Physical I have noted the following changes of clinical significance: no changes noted
--- NOTE | 2021-08-09 12:37 | History & Physical Report ---
Date of Service August 09, 2021 Assessment & Plan (1) Neurogenic claudication due to lumbar spinal stenosis: Plan: L3-L5 decompression fusion Admission and Anticipated Discharge Date Admission Date: August 08, 2021 History of Present Illness Chief Complaint: Back and bilateral leg pain Primary Care Provider: Olga Montague DO This is an 81-year-old male presents with worsening chronic persistent back and leg pain. After failing course of nonoperative care is here for surgical invention. Allergies Allergy/AdvReac Type Severity Reaction Status Date / Time tramadol AdvReac Mild Urinary Verified 08/08/21 09:01 Blockage Home Medications Medication Instructions Recorded Confirmed Type aspirin 81 mg tablet,delayed 162 mg PO QAM 01/27/21 08/08/21 History release (Aspirin Low Dose) atorvastatin 40 mg tablet (Lipitor) 40 mg PO HS 01/27/21 08/08/21 History clopidogrel 75 mg tablet (Plavix) 75 mg PO HS 01/27/21 08/08/21 History isosorbide mononitrate 30 mg 30 mg PO QAM 01/27/21 08/08/21 History tablet,extended release 24 hr metoprolol succinate 25 mg 12.5 mg PO HS 01/27/21 08/08/21 History tablet,extended release 24 hr (Toprol XL) nitroglycerin 0.4 mg sublingual 0.4 mg SUBLINGUAL UD 01/27/21 08/08/21 History tablet (Nitrostat) pantoprazole 40 mg tablet,delayed 40 mg PO QAM 01/27/21 08/08/21 History release (Protonix) valacyclovir 500 mg tablet 500 mg PO QAM 01/27/21 08/08/21 History (Valtrex) oxycodone-acetaminophen 5 mg-325 1 tab PO Q6H PRN 05/14/21 08/08/21 History mg tablet (Percocet) lidocaine HCl 4 % (40 mg/mL) 1 applic TOPICAL UD 08/08/21 08/08/21 History mucosal solution Past Med/Surg History Medical History BPH (benign prostatic hyperplasia) CAD (coronary artery disease) 2009: GEM to RCA 2011: Known residual occlusion occlusion of the ramus intermedius that was not amenable to PCI (2010) > treated medically 2012: Mild distal left main disease and 90% ramus intermedius stenosis with left to left collaterals unchanged compared to prior. 40% LAD stenosis noted and RCA stents patent > treated medically CKD (chronic kidney disease), stage III CVA (cerebral vascular accident) ? CVA vs. TIA (2018, evaluated at [facility], no acute head/brain imaging findings- felt to be TIA per discharge summary) GERD (gastroesophageal reflux disease) controlled, stable per pt History of myocardial infarction 2008 > GEM to RCA Follows with [facility] cardiology (preop appt scheduled 06/28) HLD (hyperlipidemia) HTN (hypertension) stable, controlled per pt Surgical History H/O heart artery stent History of cardiac cath 2008: GEM to RCA 2010: Known residual occlusion occlusion of the ramus intermedius that was n ot amenable to PCI (2010) > treated medically 2012: Mild distal left main disease and 90% ramus intermedius stenosis with left to left collaterals unchanged compared to prior. 40% LAD stenosis noted and RCA stents patent > treated medically Hx of colonoscopy Hx of laminectomy Hx of repair of right rotator cuff Family History Mother Dementia Father Stroke Social History Smoking Status: Former smoker Smoking End Date: 30 years ago; Second Hand Exposure: No; Do You Dip or Chew Tobacco: No; Hx Alcohol Use: No Hx Substance Use: No Preferred Language: Urdu Communication Ability: Effective Refueling [place] Required: No Beliefs That Will Affect Care: None Current Living Situation: Spouse Other Information That Helps Us Care for You: No Feels Safe at Home: Yes Safety Concerns: Feels Safe At This Time Assistive Devices: Cane and Glasses Assistive Devices Comment: Pt states that he own hearing aids, but does no wear them. Physical Exam Physical Exam: Patient is alert and oriented Heart regular rhythm Lungs clear Results & Data ([facility]) Vital Signs (Past 12 Hours) Vital Signs Temp Pulse Resp BP BP Pulse Ox 08/09/21 11:31 36.7 C 81 20 173/90 H 96 08/09/21 07:22 36.7 C 77 16 184/83 H 96
[2021-08-09] MEDS ORDERED: SUGAMMADEX SODIUM 200 MG/2 ML VIAL IV ONE (12:48)
[2021-08-09] MEDS ORDERED: BUPIVACAINE 0.5 % 5 MG/1 ML MPF 30ML VIAL ONE (12:51)
[2021-08-09] MEDS ORDERED: EPINEPHrine INJ 1 MG/ML AMP ONE (12:51)
--- NOTE | 2021-08-09 12:55 | Anesthesiology Consultation ---
Date of Service August 09, 2021 Assessment & Plan (1) Encounter for pre-operative examination: Chart Review Chart Review: Acceptable Risk for Surgery and Patient NOT seen in Pre Admission Testing Consults Requested none History Surgery Operation Date: 08/09/21 12:25 Proposed Procedures p L3-L5 Decompression Fusion - Tonio Staples DO Height/Weight Height: 6 ft 1 in Weight: 77.5 kg Allergies Allergy/AdvReac Type Severity Reaction Status Date / Time tramadol AdvReac Mild Urinary Verified 08/08/21 09:01 Blockage Medications Home Medications Medication Instructions Recorded Confirmed Last Taken aspirin 81 mg tablet,delayed 162 mg PO QAM 01/27/21 08/08/21 08/08/21 release (Aspirin Low Dose) atorvastatin 40 mg tablet (Lipitor) 40 mg PO 01/27/21 08/08/21 08/07/21 clopidogrel 75 mg tablet (Plavix) 75 mg PO 01/27/21 08/08/21 01/26/21 isosorbide mononitrate 30 mg 30 mg PO QA 01/27/21 08/08/21 08/08/21 tablet,extended release 24 hr metoprolol succinate 25 mg 12.5 mg PO 01/27/21 08/08/21 08/07/21 tablet,extended release 24 hr (Toprol XL) nitroglycerin 0.4 mg sublingual 0.4 mg SUBLINGUAL UD 01/27/21 08/08/21 Unknown tablet (Nitrostat) pantoprazole 40 mg tablet,delayed 40 mg PO QAM 01/27/21 08/08/21 08/08/21 release (Protonix) valacyclovir 500 mg tablet 500 mg PO QA 01/27/21 08/08/21 08/08/21 (Valtrex) oxycodone-acetaminophen 5 mg-325 1 tab PO Q6H PRN 05/14/21 08/08/21 08/08/21 05:30 mg tablet (Percocet) lidocaine HCl 4 % (40 mg/mL) 1 applic TOPICAL UD 08/08/21 08/08/21 08/06/21 mucosal solution Active Medications Generic Name Dose Route Start Last Admin Trade Name Freq PRN Reason Stop Dose Admin Aspirin 162 mg 08/09/21 09:00 08/09/21 10:04 Aspirin 81 Mg Ectab PO 09/08/21 08:59 Not Given QAM MANISH Atorvastatin Calcium 40 mg 08/08/21 21:00 08/08/21 21:00 Atorvastatin 40 Mg Tab PO 09/07/21 20:59 40 mg HS MANISH Administration Sodium Chloride 1,000 mls @ 75 mls/hr 08/08/21 14:46 08/09/21 11:36 Nss 1000ml IV 09/07/21 14:45 0 mls/hr .[id number] MANISH Infusion Isosorbide Mononitrate 30 mg 08/09/21 09:00 08/09/21 09:00 Isosorbide Ray Extended Rel 30 Mg Tabcr PO 09/08/21 08:59 30 mg QAM MANISH Administration Metoprolol Succinate 12.5 mg 08/08/21 21:00 08/08/21 21:00 Metoprolol Succ 25mg Ext Rel Tab PO 09/07/21 20:59 12.5 mg HS MANISH Administration Oxycodone HCl 5 - 10 mg 08/08/21 14:46 08/08/21 19:43 Oxycodone Hcl Ir 5 Mg Tab (Immediate Release) PO 08/22/21 14:45 5 mg Q4H PRN Administration mod to severe pain Pantoprazole Sodium 40 mg 08/09/21 09:00 08/09/21 10:04 Pantoprazole 40 Mg Tab PO 09/08/21 08:59 Not Given QAM MANISH NPO Date Last Intake of Fluids: 08/08/21 Time Last Intake of Fluids: 23:00 Last Intake of Fluids Comment: sip of water 0900 for am meds Date Last Intake of Solids: 08/01/21 Time Last Intake of Solids: 19:00 Past Medical History Medical History BPH (benign prostatic hyperplasia) CAD (coronary artery disease) 2009: GEM to RCA 2011: Known residual occlusion occlusion of the ramus intermedius that was not amenable to PCI (2010) > treated medically 2012: Mild distal left main disease and 90% ramus intermedius stenosis with left to left collaterals unchanged compared to prior. 40% LAD stenosis noted and RCA stents patent > treated medically CKD (chronic kidney disease), stage III CVA (cerebral vascular accident) ? CVA vs. TIA (2018, evaluated at [facility], no acute head/brain imaging findings- felt to be TIA per discharge summary) GERD (gastroesophageal reflux disease) controlled, stable per pt History of myocardial infarction 2009 > GEM to RCA Follows with [facility] cardiology (preop appt scheduled 06/28) HLD (hyperlipidemia) HTN (hypertension) stable, controlled per pt Past Family History Family History Mother Dementia Father Stroke Past Surgical History Surgical History H/O heart artery stent History of cardiac cath 2009: GEM to RCA 2011: Known residual occlusion occlusion of the ramus intermedius that was not amenable to PCI (2010) > treated medically 2012: Mild distal left main disease and 90% ramus intermedius stenosis with left to left collaterals unchanged compared to prior. 40% LAD stenosis noted and RCA stents patent > treated medically Hx of colonoscopy Hx of laminectomy Hx of repair of right rotator cuff Social History Smoking Status: Former smoker tobacco type: cigarettes Do You Dip or Chew Tobacco: No Smoking End Date: 30 years ago Hx Alcohol Use: No Alcohol type: wine alcohol intake frequency: holidays/special occasions only Hx Substance Use: No substance use type: does not use Physical Exam Vital Signs Last Vital Signs Temp 36.7 C 08/09/21 11:31 Pulse 81 08/09/21 11:31 Resp 20 08/09/21 11:31 BP 173/90 H 08/09/21 11:31 Pulse Ox 96 08/09/21 11:31 Testing Laboratory Results 08/08/21 08:24 08/08/21 08:24 PT 11.0 Seconds (9.0-12.0) 08/08/21 08:24 INR 1.1 (0.9-1.1) 08/08/21 08:24 Blood Type A Positive 08/08/21 14:45 Antibody Screen NEGATIVE 08/08/21 14:45 Electrocardiogram Date: 05/14/21 [place] Electrocardiogram Report Signed Patient:ANA PACHECO Admit Date:05/14/21 MR#:[id number] Att Phy: Acct ID:[id number] [place] Phy:Olga Montague DO Date:1940 Fam Phy: Age:80 Location:ED Sex:M Room/Bed: cc: ~ DICTATED BY:Gallito Hamilton MD Test Reason : Blood Pressure : / mmHG Vent. Rate : 072 BPM Atrial Rate : 072 BPM P-R Int : 184 ms QRS Dur : 106 ms QT Int : 390 ms P-R-T Axes : 062 -03 065 degrees QTc Int : 427 ms Sinus rhythm with occasional Premature ventricular complexes Otherwise normal ECG When compared with ECG of 27-JAN-2021 18:58, Premature ventricular complexes are now Present Confirmed by Gallito Hamilton ([id number]) on 05/15/2021 4:51:27 PM Referred By: REFERRED SELF Confirmed By:Gallito Hamilton Signed By: 05/15/21 1651 Dictated:05/14/21 1011 Chest X-Ray Date: 06/27/21 st Pre-admission PA/Lat CLINICAL HISTORY: pat. Evaluate cardiopulmonary status COMPARISON STUDY: 01/27/2021 TECHNIQUE: 2 views of the chest FINDINGS: Frontal and lateral radiographs of the chest demonstrate the cardiomediastinal silhouette to be within normal limits. There is hyperinflation of the lungs with attenuation of the pulmonary vasculature peripherally characteristic of underlying chronic obstructive pulmonary disease. The lungs are clear of alveolar opacities. There is no evidence for effusion bilaterally. There is no evidence for vascular congestion. There is no acute osseous pathology. There is again soft tissue prominence of the right paratracheal region with deviation of the trachea to the left. This is again most characteristic of an enlarged thyroid versus tortuous brachiocephalic vessels. IMPRESSION: No acute cardiopulmonary disease. Evidence for underlying COPD. ACT 112: Negative or not required by law. Electronically signed by: Lamonte Ochoa M.D. 06/27/2021 3:54 PM Dictated:06/27/21 155 Transcribed: 06/27/[id number] Stress Test Date: 07/12/21 Type: DSE Findings: + WNL Resting EF: 55-59 grade 1 diastolic dysfunction, mild concentric LVH
[2021-08-09] MEDS ORDERED: ePHEDrine sulfate 50 MG/ML SYR ONE (13:22)
[2021-08-09] MEDS ORDERED: PHENYLEPHRINE 100MCG/ML 5ML SYR ONE (13:22)
[2021-08-09] MEDS ORDERED: FLOSEAL HEMOSTATIC MATRIX 10ML TOP ONE ×2 (14:13→15:17)
--- NOTE | 2021-08-09 15:23 | Operative Report ---
Post Operative Report Pre & Post Diagnosis Operation Date: 08/09/21 12:25 Pre-Op Diagnosis: Neurogenic Claudication Due to Lumbar Spinal Stenosis L3-L5 Post-Op Diagnosis: Neurogenic Claudication Due to Lumbar Spinal Stenosis L3-L5 I identified the patient and participated in the time-out.: Yes Procedure Operation Date: 08/09/21 12:25 Actual Procedures #1 revision decompression medial facetectomies and foraminotomies L3-L4 L4-5. #2 posterior spinal fusion L3-L4 L4-L5. #3 placement posterior instrumentation L3-L4 L4-L5. #4 interbody fusion L3-L4 L4-5. #5 placement of titanium 13 x 26 mm cage at L3-4 L4-L5. #6 placement locally harvested morselized autograft in the posterior lateral gutters. #7 placement infuse collagen sponge and master graft in the posterior lateral gutters and I factor and interbody space. Surgeon Tonio Staples, Motorcycle Technician Whitney Oviedo Estimated Blood Loss 150 Findings Consistent with Post-Op Diagnosis Specimens None Indications This is an 81-year-old male who presents with marked decline in status and ability to ambulate is here for the above-mentioned procedure. Description of Procedure Patient was met with identified informed consent obtained. Patient was then taken to the operative suite underwent ablation placed in a prone position on the [place] table top Jim frame. All bony prominences well-padded eyes inspected to ensure no external pressure placed upon them. This point the lumbar spine was prepped and draped in a normal sterile fashion. Sharp dissection with the assistance of Bovie cautery performed down to and exposing the remaining lamina and transverse processes of L3-L4-L5 bilaterally. Then performed revision bilateral medial facetectomies and foraminotomies at L3-L4 L4-L5. Pedicle screws in place and L3-L4-L5 bilaterally with assistance of fluoroscopy and appropriately sized stacey placed. By way of a transforaminal approach on the right complete discectomy of L4-L5 was performed endplates curetted to subcortical bleeding bone and the 13 x 26 mm titanium cage filled with I factor tapped in position. Then proceeded to L3-L4 and again by way the transforaminal approach right complete discectomy performed endplates curetted to subcortically bone and again a 13 x 26 mm titanium cage filled with I factor tapped in position. The rods then compressed locked into final position bilaterally. The transverse processes of L3-L4-L5 burred to subcortically bone. Infuse collagen sponge master graft was placed in the posterior gutters. 15 round GEETHA drain inserted. Incision was then closed with 1 Vicryl to fascia 2-0 Vicryl subcutaneously and 4 Monocryl for final skin closure. Steri-Strip sterile dressings placed. Patient waken taken to PACU stable condition. Please note spinal cord monitoring was utilized at the procedure no changes noted. Lastly Whitney Oviedo was present at the entire surgery involved the patient positioning complex portions of the surgery and final skin closure. I attest to the content of the Intraoperative Record and any orders documented therein. Any exceptions are noted below.
[2021-08-09] MEDS: fentaNYL citrate 100 MCG/2 ML VIAL IV PRN ×4 (15:49→16:04)
--- NOTE | 2021-08-09 15:50 | Fluoroscopy Report ---
FL lumbar spine 2-3V CLINICAL HISTORY: L3-5 DECOMPRESSION/FUSION TECHNIQUE: 2 views were obtained with the C-arm in the OR with the above procedure. Total fluoroscopy time was 25.6 seconds. Total skin dose was 11.25 mGy. Comparison: None available at the time of this dictation. FINDINGS/IMPRESSION: Intraoperative images were obtained of L3 L5 decompression and fusion. Please correlate with intraoperative fluoroscopy and operative report. ACT 112: Negative or not required by law. Electronically signed by: Kevin Martinez M.D. 08/09/2021 3:49 PM
[2021-08-09] MEDS: HYDROmorphone INJ 1 MG/ML SYRINGE IV PRN ×6 (16:09→16:35)
--- NOTE | 2021-08-09 16:50 | Anesthesiology Progress Note ---
Date of Service August 09, 2021 Anesthesia Post Procedure Vital Signs Vital Signs: Temp Pulse Pulse Resp BP BP Pulse Ox 08/09/21 16:45 87 19 151/84 H 97 08/09/21 16:35 87 12 157/87 H 96 08/09/21 16:25 84 16 147/92 H 98 08/09/21 16:15 85 12 157/94 H 97 08/09/21 16:05 84 12 162/94 H 100 08/09/21 15:55 79 12 156/94 H 99 08/09/21 15:45 83 16 160/99 H 100 08/09/21 15:39 36.8 C 88 14 172/91 H 93 08/09/21 11:31 36.7 C 81 20 173/90 H 96 08/09/21 07:22 36.7 C 77 16 184/83 H 96 08/08/21 20:59 36.4 C L 68 16 169/79 H 94 Pain Intensity Lower Back: Pain Intensity: 3 Bilateral Leg: Pain Intensity: 3 Transfer of Care Handoff Completed per policy Notes Mental Status: alert / awake / arousable Patient Amnestic to Procedure: Yes Nausea / Vomiting: adequately controlled Pain: adequately controlled Airway Patency, RR, SpO2: stable & adequate BP & HR: stable & adequate Hydration State: stable & adequate Anesthetic Complications: no major complications apparent and Pt Satisfied with anesthetic care Notes: The patient is awake and comfortable.
[2021-08-09] MEDS ORDERED: LORazepam 0.5 MG/1 ML VIAL IV PRN (17:04)
[2021-08-09] MEDS ORDERED: FAMOTIDINE 20 MG TAB PO PRN (17:04)
[2021-08-09] MEDS ORDERED: bisacodyL 10 MG SUPP PR PRN (17:04)
[2021-08-09] MEDS ORDERED: diphenhydrAMINE Capsule 25 MG CAP PO PRN (17:04)
[2021-08-09] MEDS ORDERED: METOCLOPRAMIDE HCL INJ 5 MG/ML 2 ML VIAL IV PRN (17:04)
[2021-08-09] MEDS ORDERED: ONDANSETRON 4 MG OD TAB PO PRN (17:04)
[2021-08-09] MEDS ORDERED: ACETAMINOPHEN 500 MG TAB PO PRN (17:04)
[2021-08-09] MEDS ORDERED: MAGNESIUM HYDROXIDE SUSP 30 ML UDC PO PRN (17:04)
[2021-08-09] MEDS ORDERED: HYDROmorphone INJ 0.5 MG/0.5 ML SYR IV PRN (17:04)
[2021-08-09] MEDS ORDERED: NALOXONE HCL 0.4 MG/1 ML VIAL/CARP IV PRN (17:04)
[2021-08-09] MEDS ORDERED: DO NOT ADMINISTER PNEUMOCOCCAL VACCINE PRN (17:04)
[2021-08-09] MEDS ORDERED: ACETAMINOPHEN 1,000 MG/100 ML VIAL IV PRN (17:04)
[2021-08-09] MEDS ORDERED: HYDROmorphone INJ 1 MG/ML SYRINGE IV PRN (17:04)
[2021-08-09] MEDS ORDERED: hydrOXYzine HCl 25 MG TAB PO PRN (17:04)
[2021-08-09] MEDS ORDERED: oxyCODONE HCL IR 5 MG TAB (IMMEDIATE RELEASE) PO PRN (17:04)
[2021-08-09] MEDS ORDERED: ALUMINUM/MAGNESIUM SUSP 30 ML UDC PO PRN (17:04)
[2021-08-09] MEDS ORDERED: SOD PHOSPHATE/SOD BIPHOSPHATE ENEMA 132 ML BTL PR PRN (17:04)
[2021-08-09] MEDS ORDERED: PROMETHAZINE HCL 12.5 MG in SODIUM CHLORIDE 0.9% 50 ML IV PRN (17:04)
[2021-08-09] MEDS ORDERED: DO NOT ADMINISTER FLU VACCINE PRN (17:04)
[2021-08-09] MEDS ORDERED: LORazepam 0.5 MG TAB PO PRN (17:04)
[2021-08-09] MEDS: oxyCODONE HCL IR 5 MG TAB (IMMEDIATE RELEASE) PO PRN (17:39)
[2021-08-09] MEDS: DOCUSATE SODIUM/SENNA 50/8.6MG TAB PO SCH (20:38)
[2021-08-09] MEDS: ceFAZolin 2000MG 2,000 MG/15 ML SYR IV SCH (20:38)
[2021-08-09] MEDS: METOPROLOL SUCC 25MG EXT REL TAB PO SCH (20:39)
[2021-08-09] MEDS: ATORVASTATIN 40 MG TAB PO SCH (20:40)
--- NOTE | 2021-08-09 23:49 | Hospitalist Progress Note ---
Date of Service August 09, 2021 Assessment & Plan (1) Spinal stenosis: (2) Acute lumbar radiculopathy: (3) Neurogenic claudication due to lumbar spinal stenosis: Plan: S/P revision decompression medial facetectomies and foraminotomies L3-L4 L4-5. #2 posterior spinal fusion L3-L4 L4-L5. #3 placement posterior instrumentation L3-L4 L4-L5. #4 interbody fusion L3-L4 L4-5. #5 placement of titanium 13 x 26 mm cage at L3-4 L4-L5. #6 placement locally harvested morselized autograft in the posterior lateral gutters. #7 placement infuse collagen sponge and master graft in the posterior lateral gutters and I factor and interbody space performed by Dr. ruiz today No post op complication Continue pain control Incentive spirometry Will continue monitor H/H (4) CAD (coronary artery disease): Plan: Hx of such, s/p stenting x 2 in RCA in 2008, Had cardiac cathin 2010 due to abnormal stress test but demonstrated patent RCA stents. there was a 100% occlusion of the ramus found to be filling the left-left collaterals. PTCA was attempted bu unsuccessful. Mar 2012 had another cardiac cath which revealed mildly diseased left main, severely diseased ramus with 90% stenosis of left- left collaterals. LAD had 40 % stenosis in midvessel. RCA stens were patent. Imdur was increased for and medical management was recommended. Cont metoprolol succ 12.5 mg HS, imdur 30 mg QAM, asa 162 mg daily Resume plavix once bleeding stable (5) HTN (hypertension): Plan: - Cont antihypertensive medications as above (6) HLD (hyperlipidemia): Plan: - Cont atorvastatin 40 mg HS (7) CKD (chronic kidney disease), stage III: Plan: - Cr/BUN appears to be at baseline of 1.3 (8) CVA (cerebral vascular accident): Plan: - hx of such in December 2017, asa was titrated to 325 daily for 3 months then reduced to 162 daily, which he can continue. (9) BPH (benign prostatic hyperplasia): Plan: - noted, chronic DVT ppx: teds, scds as per ortho CODE: Full code Admission and Anticipated Discharge Date Admission Date: August 08, 2021 Subjective Pt was seen and examined for post op follow up Lying in bed with no distress with daughter at bedside Pt said that pain is tolerable Denies any chest pain, palpitation, dizziness and SOB Review of Systems Review of Systems: All systems reviewed & are unremarkable except as noted in Subjective Physical Exam Physical Exam: General- No acute distress Head- atraumatic Eyes- PERRL, EOMI, ENT- oropharynx clear Neck- supple, no JVD Lungs- clear to auscultation Heart- regular rhythm; no murmur Abdomen- normal bowel sounds, soft, nontender Extremities- no calf tenderness Neuro- alert, oriented x 3; PERRL, EOMI; no facial palsy; no dysarthria Skin- warm & dry Results & Data Results & Data ([facility]) Vital Signs (Past 12 Hours) Vital Signs Temp Pulse Pulse Pulse Resp BP BP 08/09/21 22:01 36.8 C 96 H 16 169/91 H 08/09/21 20:04 36.5 C 98 H 18 152/84 H 08/09/21 19:32 36.3 C L 99 H 16 147/75 H 08/09/21 17:57 36.3 C L 96 H 16 147/85 H 08/09/21 17:29 36.2 C L 93 H 16 162/83 H 08/09/21 17:00 36.3 C L 92 H 16 165/89 H 08/09/21 16:45 87 19 151/84 H 08/09/21 16:35 87 12 157/87 H 08/09/21 16:25 84 16 147/92 H 08/09/21 16:15 85 12 157/94 H 08/09/21 16:05 84 12 162/94 H 08/09/21 15:55 79 12 156/94 H 08/09/21 15:45 83 16 160/99 H 08/09/21 15:39 36.8 C 88 14 172/91 H Pulse Ox 08/09/21 22:01 97 08/09/21 20:04 96 08/09/21 19:32 95 08/09/21 17:57 95 08/09/21 17:29 96 08/09/21 17:00 96 08/09/21 16:45 97 08/09/21 16:35 96 08/09/21 16:25 98 08/09/21 16:15 97 08/09/21 16:05 100 08/09/21 15:55 99 08/09/21 15:45 100 08/09/21 15:39 93 (1) Spinal stenosis Spinal region: unspecified Qualified Code(s): M48.00 - Spinal stenosis, site unspecified
[2021-08-10] MEDS ORDERED: POLYETHYLENE (MIRALAX) 17 GM PACK ONE (04:31)
[2021-08-10] MEDS: ceFAZolin 2000MG 2,000 MG/15 ML SYR IV SCH (04:35)
[2021-08-10] MEDS: POLYETHYLENE (MIRALAX) 17 GM PACK PO SCH ×4 (04:35→23:21)
[2021-08-10 07:35] LABS: Hemoglobin 11.7 g/dL (14.0-18.0); Immature Granulocytes # (auto) 0.01 K/uL (0.00-0.02); Immature Granulocytes % (auto) 0.1 %; Lymphocytes # (auto) 0.89 K/uL (1.2-3.4); Lymphocytes % (auto) 7.3 %; Mean Corpuscular Hemoglobin 33.1 pg (25-34); Mean Corpuscular Hgb Conc 33.4 g/dL (32-36); Mean Corpuscular Volume 99.2 fL (80-100); Mean Platelet Volume 8.9 fL (7.4-10.4); Monocytes # (auto) 1.04 K/uL (0.11-0.59); Monocytes % (auto) 8.6 %; Neutrophils # (auto) 10.22 K/uL (1.4-6.5); Platelet Count 161 K/uL (130-400); RDW Coefficient of Variation 13.6 % (11.5-14.5); RDW Standard Deviation 49.1 fL (36.4-46.3); Red Blood Count 3.53 M/uL (4.7-6.1); White Blood Count 12.16 K/uL (4.8-10.8)
[2021-08-10 08:05] LABS: BUN Creatinine Ratio 16.5 (10-20); Calcium 8.7 mg/dl (8.5-10.1); Creatinine Clr Calc Pharmacy 65.5 ml/min; Est GFR (African American) 84.5 ml/min; Est GFR (Non-African American) 72.9 ml/min
--- NOTE | 2021-08-10 08:16 | Orthopedic Progress Note ---
Date of Service August 10, 2021 Assessment & Plan (1) Spinal stenosis: Plan: At this time we will initiate physical therapy monitor his GEETHA output anticipate hopeful discharge home this weekend. Admission and Anticipated Discharge Date Admission Date: August 08, 2021 Subjective Back pain is controlled right leg symptoms markedly improved Physical Exam Physical Exam: On exam he appears comfortable. Is good strength testing. Results & Data ([facility]) Vital Signs (Past 12 Hours) Vital Signs Temp Pulse Resp BP Pulse Ox 08/10/21 07:10 36.8 C 78 18 156/77 H 97 08/10/21 02:15 36.4 C L 87 18 164/87 H 96 08/09/21 22:01 36.8 C 96 H 16 169/91 H 97 (1) Spinal stenosis Spinal region: unspecified Qualified Code(s): M48.00 - Spinal stenosis, site unspecified
[2021-08-10] MEDS: ISOSORBIDE MONO EXTENDED REL 30 MG TABCR PO SCH (09:08)
[2021-08-10] MEDS: oxyCODONE HCL IR 5 MG TAB (IMMEDIATE RELEASE) PO PRN (09:08)
[2021-08-10] MEDS: ASPIRIN 81 MG ECTAB PO SCH (09:09)
[2021-08-10] MEDS: PANTOprazole 40 MG TAB PO SCH (09:09)
[2021-08-10] MEDS: dexAMETHasone 6 MG in SYRINGE 0 ML IV SCH (09:13)
[2021-08-10] MEDS ORDERED: bisacodyL 10 MG SUPP PR PRN (10:20)
[2021-08-10] MEDS ORDERED: COUGH DROP (SUGAR FREE) LOZ 24 LOZ/1 BOX BUCCAL STA (17:36)
[2021-08-10] MEDS: ACETAMINOPHEN 500 MG TAB PO PRN (17:44)
[2021-08-10] MEDS: DOCUSATE SODIUM/SENNA 50/8.6MG TAB PO SCH (20:30)
[2021-08-10] MEDS: METOPROLOL SUCC 25MG EXT REL TAB PO SCH (20:30)
[2021-08-10] MEDS: ATORVASTATIN 40 MG TAB PO SCH (20:31)
--- NOTE | 2021-08-10 23:17 | Hospitalist Progress Note ---
Date of Service August 10, 2021 Assessment & Plan (1) Spinal stenosis: (2) Acute lumbar radiculopathy: (3) Neurogenic claudication due to lumbar spinal stenosis: Plan: S/P day #1 revision decompression medial facetectomies and foraminotomies L3-L4 L4-5. #2 posterior spinal fusion L3-L4 L4-L5. placement posterior instrumentation L3-L4 L4-L5. interbody fusion L3-L4 L4-5. placement of titanium 13 x 26 mm cage at L3-4 L4-L5. placement locally harvested morselized autograft in the posterior lateral gutters. placement infuse collagen sponge and master graft in the posterior lateral gutters and I factor and interbody space performed by Dr. Staples No post op complication Hgb dropped to 11.7 Continue pain control Incentive spirometry Will continue monitor H/H Continue PT/OT Fall precaution (4) CAD (coronary artery disease): Plan: Hx of such, s/p stenting x 2 in RCA in 2008, Had cardiac cathin 2010 due to abnormal stress test but demonstrated patent RCA stents. there was a 100% occlusion of the ramus found to be filling the left-left collaterals. PTCA was attempted bu unsuccessful. Mar 2012 had another cardiac cath which revealed mildly diseased left main, severely diseased ramus with 90% stenosis of left- left collaterals. LAD had 40 % stenosis in midvessel. RCA stens were patent. Imdur was increased for and medical management was recommended. Cont metoprolol succ 12.5 mg HS, imdur 30 mg QAM, asa 162 mg daily Resume plavix once bleeding stable (5) HTN (hypertension): Plan: - Cont antihypertensive medications as above (6) HLD (hyperlipidemia): Plan: - Cont atorvastatin 40 mg HS (7) CKD (chronic kidney disease), stage III: Plan: - Cr/BUN appears to be at baseline of 1.3 - Creatinine stable (8) CVA (cerebral vascular accident): Plan: - hx of such in December 2017, asa was titrated to 325 daily for 3 months then reduced to 162 daily, which he can continue. - Stable (9) BPH (benign prostatic hyperplasia): Plan: - noted, chronic DVT ppx: teds, scds as per ortho CODE: Full code Admission and Anticipated Discharge Date Admission Date: August 08, 2021 Subjective Pt was seen and examined for post op follow up Lying in bed with no distress with daughter at bedside Pt said that earlier he developed some hallucination after taking 2 tab of oxycodone. He said that he usually takes 1 tab He had a BM this morning Denies any chest pain, palpitation, dizziness and SOB Review of Systems Review of Systems: All systems reviewed & are unremarkable except as noted in Subjective Physical Exam Physical Exam: General- No acute distress Head- atraumatic Eyes- PERRL, EOMI, ENT- oropharynx clear Neck- supple, no JVD Lungs- clear to auscultation Heart- regular rhythm; no murmur Abdomen- normal bowel sounds, soft, nontender Extremities- no calf tenderness Neuro- alert, oriented x 3; PERRL, EOMI; no facial palsy; no dysarthria Skin- warm & dry Results & Data Results & Data ([facility]) Vital Signs (Past 12 Hours) Vital Signs Temp Pulse Resp BP Pulse Ox 08/10/21 21:00 36.5 C 75 16 132/78 95 08/10/21 19:24 36.8 C 82 18 146/77 H 98 08/10/21 14:42 36.4 C L 77 18 152/82 H 98 (1) Spinal stenosis Spinal region: unspecified Qualified Code(s): M48.00 - Spinal stenosis, site unspecified
[2021-08-11] MEDS: ACETAMINOPHEN 500 MG TAB PO PRN ×2 (03:54→15:11)
[2021-08-11] MEDS: POLYETHYLENE (MIRALAX) 17 GM PACK PO SCH (05:05)
[2021-08-11 07:57] LABS: Hematocrit (blood only) 34.2 % (42-52); Hemoglobin 11.6 g/dL (14.0-18.0); Mean Corpuscular Hemoglobin 33.1 pg (25-34); Mean Corpuscular Hgb Conc 33.9 g/dL (32-36); Mean Corpuscular Volume 97.7 fL (80-100); Mean Platelet Volume 9.1 fL (7.4-10.4); Platelet Count 162 K/uL (130-400); RDW Coefficient of Variation 13.9 % (11.5-14.5); RDW Standard Deviation 50.1 fL (36.4-46.3); White Blood Count 13.47 K/uL (4.8-10.8)
[2021-08-11] MEDS: oxyCODONE HCL IR 5 MG TAB (IMMEDIATE RELEASE) PO PRN (07:59)
[2021-08-11] MEDS: PANTOprazole 40 MG TAB PO SCH (08:00)
[2021-08-11] MEDS: dexAMETHasone 6 MG in SYRINGE 0 ML IV SCH (08:00)
[2021-08-11] MEDS: ISOSORBIDE MONO EXTENDED REL 30 MG TABCR PO SCH (08:00)
[2021-08-11] MEDS: ASPIRIN 81 MG ECTAB PO SCH (08:00)
--- NOTE | 2021-08-11 13:25 | Orthopedic Progress Note ---
Date of Service August 11, 2021 Assessment & Plan (1) Neurogenic claudication due to lumbar spinal stenosis: Plan: At this point he is doing well. His pain is better controlled. He is going to continue with PT and OT. We will continue with DVT and GI prophylaxis. Our hopes of being given discharge to home tomorrow. Admission and Anticipated Discharge Date Admission Date: August 08, 2021 Physical Exam Physical Exam: On exam the patient is alert and oriented. The dressing is clean dry intact. GEETHA drain has been removed. His strength and sensation are both intact his calves are supple nontender his abdomen soft and nontender. Results & Data ([facility]) Vital Signs (Past 12 Hours) Vital Signs Temp Pulse Resp BP BP Pulse Ox 08/11/21 11:39 37.1 C 62 18 120/76 97 08/11/21 07:49 36.4 C L 72 14 124/80 99
--- NOTE | 2021-08-11 14:59 | Hospitalist Progress Note ---
Date of Service August 11, 2021 Assessment & Plan (1) Spinal stenosis: (2) Acute lumbar radiculopathy: (3) Neurogenic claudication due to lumbar spinal stenosis: Plan: S/P day #2 revision decompression medial facetectomies and foraminotomies L3-L4 L4-5. #2 posterior spinal fusion L3-L4 L4-L5. placement posterior instrumentation L3-L4 L4-L5. interbody fusion L3-L4 L4-5. placement of titanium 13 x 26 mm cage at L3-4 L4-L5. placement locally harvested morselized autograft in the posterior lateral gutters. placement infuse collagen sponge and master graft in the posterior lateral gutters and I factor and interbody space performed by Dr. Staples Preop Hgb 13.6 --> 11.7 today EBL 150 cc, drain output 500 cc Continue pain control with bowel regimen Incentive spirometry Continue PT/OT Fall precaution (4) CAD (coronary artery disease): Plan: Appears stable, continue ASA, statin, beta-leticia, nitrate Resume Plavix at the discretion of spine Ortho (5) HTN (hypertension): Plan: BP stable, continue metoprolol and isosorbide (6) CVA (cerebral vascular accident): Plan: hx of such in December 2017, asa was titrated to 325 daily for 3 months then reduced to 162 daily Continue statin (7) DVT prophylaxis: Plan: TEDs/SCDs as per spine Ortho Thank you for this consultation. We will follow the patient with you during their hospital stay. You can reach a member of the [place] Team 18/02 via the [place] role in [place] Text. Admission and Anticipated Discharge Date Admission Date: August 08, 2021 Supervising Physician Co-Signing Physician Notes Pt was seen and examined for post op follow up. Agreed with Jasmine ELMORE exam, assessment and plan. Pain is control. denies any chest pain, palpitation. 1) Spinal stenosis: (2) Acute lumbar radiculopathy: (3) Neurogenic claudication due to lumbar spinal stenosis: Plan: S/P day #2 revision decompression medial facetectomies and foraminotomies L3-L4 L4-5. #2 posterior spinal fusion L3-L4 L4-L5. placement posterior instrumentation L3-L4 L4-L5. interbody fusion L3-L4 L4-5. placement of titanium 13 x 26 mm cage at L3-4 L4-L5. placement locally harvested morselized autograft in the posterior lateral gutters. placement infuse collagen sponge and master graft in the posterior lateral gutters and I factor and interbody space performed by Dr. Staples Preop Hgb 13.6 --> 11.6 today No post complication EBL 150 cc, drain output 500 cc Continue pain control with bowel regimen Incentive spirometry Continue PT/OT Fall precaution Stable Continue monitor MD [place] Subjective Patient seen and examined. Follow-up for medical management s/p back surgery. Patient reports pain is well controlled with current pain medication. No numbness, weakness, tingling to the lower extremities. Denies chest pain or shortness of breath. No abdominal pain or nausea. Urinating without difficulty, + BM. Review of Systems 2 Review of Systems: ROS per HPI, all other systems reviewed and negative Physical Exam Constitutional: no acute distress Respiratory: normal respiratory effort, lungs clear to auscultation Cardiovascular: Rate/Rhythm: regular rate and regular rhythm Vessels: normal peripheral pulses Extremities: no edema Gastrointestinal (Abdomen): Percussion/Palpation: abdomen soft; abdomen nontender Musculoskeletal: Strength strong and equal BLE, chronic left foot drop noted Skin: no rashes, warm and dry Neurologic: no focal motor deficits Psychiatric: A+Ox3, euthymic affect Results & Data Results & Data ([facility]) Vital Signs (Past 12 Hours) Vital Signs Temp Pulse Resp BP BP Pulse Ox 08/11/21 11:39 37.1 C 62 18 120/76 97 08/11/21 07:49 36.4 C L 72 14 124/80 99 Laboratory Results Short CBC 08/11/21 Range/Units 07:38 WBC 13.47 H (4.8-10.8) K/uL Hgb 11.6 L (14.0-18.0) g/dL Hct 34.2 L (42-52) % Plt Count 162 (130-400) K/uL (1) Spinal stenosis Spinal region: unspecified Qualified Code(s): M48.00 - Spinal stenosis, site unspecified
[2021-08-11] MEDS: METOPROLOL SUCC 25MG EXT REL TAB PO SCH (21:06)
[2021-08-11] MEDS: ATORVASTATIN 40 MG TAB PO SCH (21:06)
[2021-08-11] MEDS: DOCUSATE SODIUM/SENNA 50/8.6MG TAB PO SCH (21:10)
[2021-08-12] MEDS: ACETAMINOPHEN 500 MG TAB PO PRN (02:08)
[2021-08-12] MEDS: PANTOprazole 40 MG TAB PO SCH (08:51)
[2021-08-12] MEDS: ASPIRIN 81 MG ECTAB PO SCH (08:51)
[2021-08-12] MEDS: ISOSORBIDE MONO EXTENDED REL 30 MG TABCR PO SCH (08:52)
[2021-08-12] MEDS: dexAMETHasone 6 MG in SYRINGE 0 ML IV SCH (08:52)
--- NOTE | 2021-08-12 08:52 | Discharge Summary ---
Date of Service August 12, 2021 Admission HPI Per Admitting Provider This is an 81-year-old male presents with worsening chronic persistent back and leg pain. After failing course of nonoperative care is here for surgical invention. Discharge Data Consultations 08/08/21 08:12 Consult Orthopedic Surgery Stat 08/08/21 14:46 Consult Internal Medicine Routine Procedures Performed Operation Date: 08/09/21 12:25 Actual Procedures p L3-L5 Decompression Fusion with Application of Bone Morphogenetic Protein, IFactor Bone Graft, Interbody cage L3-L4 and L4-L5, Spinal Cord Monitoring(Not Applicable) - Tonio Staples DO Hospital Course (1) Acute lumbar radiculopathy: Patient is a pleasant 81-year-old male who admitted to the emergency room for acute pain. He is admitted and had undergone a lumbar decompression from L3-L5 under Dr. Staples. This performed under general anesthetic. He left the operating with a GEETHA drain and [place] in place was transferred to the orthopedic floor. He is seen by physical therapy postoperative day 1 for ambulation and gait training. Throughout his hospital course his calf remains supple and nontender his abdomen remains soft and nontender. Postop day 3 he is deemed safe for home discharge. He is to use a walker for ambulation. He should not lift anything heavier than 5 to 7 pounds and should not perform any full bending at the waist. His dressing will need to be changed once daily until there is no drainage once there is no drainage he may begin to shower. He is to see us for follow-up care in the office in approximately 2 weeks from surgery he is to call or be seen sooner if he develops any fevers chills or increased drainage from the incision.
[2021-08-12] MEDS: oxyCODONE HCL IR 5 MG TAB (IMMEDIATE RELEASE) PO PRN (08:53)
[2021-08-12 09:39] LABS: Hematocrit (blood only) 37.6 % (42-52); Hemoglobin 12.5 g/dL (14.0-18.0); Mean Corpuscular Hemoglobin 33.1 pg (25-34); Mean Corpuscular Hgb Conc 33.2 g/dL (32-36); Mean Corpuscular Volume 99.5 fL (80-100); Mean Platelet Volume 9.6 fL (7.4-10.4); Platelet Count 185 K/uL (130-400); RDW Coefficient of Variation 13.8 % (11.5-14.5); RDW Standard Deviation 49.7 fL (36.4-46.3); Red Blood Count 3.78 M/uL (4.7-6.1)
--- NOTE | 2021-08-15 09:00 | Hospitalist Progress Note ---
Date of Service August 12, 2021 Assessment & Plan (1) Spinal stenosis: (2) Acute lumbar radiculopathy: (3) Neurogenic claudication due to lumbar spinal stenosis: Plan: S/P day #3 revision decompression medial facetectomies and foraminotomies L3-L4 L4-5. #2 posterior spinal fusion L3-L4 L4-L5. placement posterior instrumentation L3-L4 L4-L5. interbody fusion L3-L4 L4-5. placement of titanium 13 x 26 mm cage at L3-4 L4-L5. placement locally harvested morselized autograft in the posterior lateral gutters. placement infuse collagen sponge and master graft in the posterior lateral gutters and I factor and interbody space performed by Dr. Staples Preop Hgb 13.6 --> 12.5 today No post complication EBL 150 cc, drain output 500 cc Continue pain control with bowel regimen Incentive spirometry Continue PT/OT Fall precaution Stable (4) CAD (coronary artery disease): Plan: Appears stable, continue ASA, statin, beta-leticia, nitrate Resume Plavix at the discretion of spine Ortho (5) HTN (hypertension): Plan: BP stable, continue metoprolol and isosorbide (6) CVA (cerebral vascular accident): Plan: hx of such in December 2017, asa was titrated to 325 daily for 3 months then reduced to 162 daily Continue statin (7) DVT prophylaxis: Plan: TEDs/SCDs as per spine Ortho Thank you for this consultation. We will follow the patient with you during their hospital stay. You can reach a member of the [facility] Hospitalist Team 18/02 via the [place] [facility] role in [place] Text. Admission and Anticipated Discharge Date Admission Date: August 08, 2021 Subjective Patient seen and examined for post op follow Lying in bed with no acute distress watching TV Denies chest pain, shortness of breath, palpitation, dizziness and SOB Review of Systems Review of Systems: All systems reviewed & are unremarkable except as noted in Subjective Physical Exam Physical Exam: General- No acute distress Head- atraumatic Eyes- PERRL, EOMI, ENT- oropharynx clear Neck- supple, no JVD Lungs- clear to auscultation Heart- regular rhythm; no murmur Abdomen- normal bowel sounds, soft, nontender Extremities- no calf tenderness Neuro- alert, oriented x 3; PERRL, EOMI; no facial palsy; no dysarthria Skin- warm & dry (1) Spinal stenosis Spinal region: unspecified Qualified Code(s): M48.00 - Spinal stenosis, site unspecified
== END 2021-08-12 13:52 | disposition home or self-care (01) | DRG 455 ==
LOC: ED 07:30 → 3W 10:25

== ENCOUNTER 2022-05-16 05:46 | Inpatient (IN) ==
[2022-05-16 07:15] LABS: INR 1.1 (0.9-1.1); Prothrombin Time 11.9 Seconds (9.0-12.0)
[2022-05-16 07:16] LABS: Albumin Globulin Ratio 1.6 (0.9-2); Albumin Level 4.2 gm/dl (3.4-5.0); BUN Creatinine Ratio 11.9 (10-20); Bilirubin,Total 0.8 mg/dl (0.2-1.0); Creatinine Clr Calc Pharmacy 53.9 ml/min; Est GFR (African American) 66.7 ml/min; Est GFR (Non-African American) 57.5 ml/min; Globulin 2.6 gm/dl (2.5-4.0); Magnesium 1.9 mg/dl (1.7-2.4); Potassium 3.8 mmol/L (3.5-5.1); Total Protein 6.8 gm/dl (6.0-8.3)
[2022-05-16 07:20] LABS: Troponin I High Sensitivity 14.9 pg/ml (0-20)
--- NOTE | 2022-05-16 07:25 | XRay Report ---
SINGLE VIEW CHEST CLINICAL HISTORY: Generalized weakness. FINDINGS: 2 AP, portable, upright chest radiographs are compared to study dated 06/27/2021. Correlati on is made with chest CT dated 12/19/2010. The heart is enlarged note atherosclerotic calcification of the thoracic aorta. The pulmonary vasculature is noncongested. Chronic interstitial thickening is si milar to previous. There is mild elevation of the right hemidiaphragm with bibasilar scarring/atelect asis. The lungs and pleural spaces are otherwise clear. No pneumothorax is seen. The skeletal structu res are osteopenic. The bony thorax is grossly intact. Fusion hardware is seen in the lumbar spine. IMPRESSION: Cardiomegaly with no active disease in the chest. ACT 112: Negative or not required by law. Electronically signed by: Kuldeep Mcfadden M.D. 05/16/2022 7:23 AM
[2022-05-16 07:36] LABS: Lyme Ab IgG w/WB Rflx Negative (Negative); Lyme Ab IgM w/WB Rflx Negative (Negative)
[2022-05-16 08:04] LABS: Basophils # (auto) 0.02 K/uL (0-0.2); Basophils % (auto) 0.5 %; Echinocytes 1+; Eosinophils # (auto) 0.01 K/uL (0-0.50); Eosinophils % (auto) 0.2 %; Hematocrit (blood only) 40.8 % (40.1-51.0); Hemoglobin 13.9 g/dl (14.0-18.0); Immature Granulocytes # (auto) 0.01 K/uL (0.00-0.02); Immature Granulocytes % (auto) 0.2 %; Lymphocytes # (auto) 0.86 K/uL (1.2-3.4); Lymphocytes % (auto) 20.2 %; Mean Corpuscular Hemoglobin 32.3 pg (25.0-34.0); Mean Corpuscular Hgb Conc 34.1 g/dL (32.0-36.0); Mean Corpuscular Volume 94.9 fL (80.0-100.0); Mean Platelet Volume 9.9 fL (9.4-12.4); Monocytes # (auto) 0.56 K/uL (0.24-0.82); Monocytes % (auto) 13.2 %; Neutrophils # (auto) 2.79 K/uL (1.4-6.5); Neutrophils % (auto) 65.7 %; Platelet Count 108 K/uL (130-400); Platelet Estimate Decreased (Normal); RDW Coefficient of Variation 15.4 % (11.5-14.5); RDW Standard Deviation 54.4 fL (36.4-46.3); White Blood Count 4.25 K/ul (4.8-10.8)
--- NOTE | 2022-05-16 08:31 | CT Scan Report ---
CT OF THE HEAD WITHOUT CONTRAST CLINICAL HISTORY: Weakness. Falls. COMPARISON STUDY: MRI of the brain January 23, 2018. Head CT January 27, 2021. CT DOSE: 614.27 mGy.cm TECHNIQUE: Helical axial images of the head were obtained without IV contrast. Automated exposure con trol was utilized for the study. A dose lowering technique was utilized adhering to the principles o f ALARA. FINDINGS: No acute intracranial hemorrhage, midline shift or mass effect is present. Ventricular syst em is stable. Basal cisterns are patent. Prominence of the extra-axial spaces is due to atrophy. Ther e are no extra-axial collections. White matter hypodensity suggests small vessel disease. There are n o findings to suggest acute dural sinus thrombosis or acute territorial infarct. Right maxillary sinu s is partially opacified. There is mild ethmoid sinus mucosal thickening. There is no acute calvarial fracture. IMPRESSION: 1. No acute intracranial findings. No significant change in appearance of the brain. 2. No acute calvarial fracture. ACT 112: Negative or not required by law. Electronically signed by: Angus Kendrick M.D. 05/16/2022 8:30 AM
--- NOTE | 2022-05-16 08:59 | Electrocardiogram Report ---
Test Reason : Blood Pressure : / mmHG Vent. Rate : 078 BPM Atrial Rate : 078 BPM P-R Int : 196 ms QRS Dur : 118 ms QT Int : 378 ms P-R-T Axes : 058 -18 045 degrees QTc Int : 430 ms Normal sinus rhythm Non-specific intra-ventricular conduction delay Borderline ECG When compared with ECG of 14-MAY-2021 10:11, Premature ventricular complexes are no longer Present Confirmed by Jorge A Hair ([id number]) on 05/16/2022 8:59:14 AM Referred By: Confirmed By:Jorge A Hair
[2022-05-16 09:20] LABS: Influenza A virus by PCR Negative (Neg); Influenza B virus by PCR Negative (Neg); RSV by PCR Negative (Neg)
[2022-05-16 09:24] LABS: SARS CoV2 RNA(COVID-19) InHosp POSITIVE (Negative)
[2022-05-16] MEDS ORDERED: SODIUM CHLORIDE 0.9% 1000ML 1,000 ML IV SCH (10:00)
--- NOTE | 2022-05-16 11:29 | History & Physical Report ---
Date of Service May 16, 2022 Assessment & Plan (1) Ambulatory dysfunction: (2) Generalized weakness: Plan: Admit to med/surg Patient presenting from home with reports of increasing generalized weakness and ambulatory dysfunction x 2 days In the ED, patient tested positive for COVID-19 Conservative care, PT/OT (3) COVID-19: Plan: COVID vaccine x 2, plus 2 boosters, last on 10/2021 Saturating well on room air, no infiltrate noted on CXR Does not meet criteria for COVID-19 directed therapies (4) CAD (coronary artery disease): Plan: Appears stable, no reports of chest pain Continue ASA, Plavix, statin, beta-leticia, nitrate (5) Diastolic dysfunction: Plan: Echo 12/2021-EF 55%, grade 1 diastolic dysfunction Appears euvolemic Continue home dose Lasix (6) CKD (chronic kidney disease), stage III: Plan: Creatinine 1.1, at baseline Monitor renal functions (7) DVT prophylaxis: Plan: SQ heparin History of Present Illness Chief Complaint: Generalized weakness Primary Care Provider: Olga Montague, 81-year-old male with PMH CAD, carotid stenosis, HTN, CKD stage III, BPH, diastolic dysfunction, and other problems listed below who presents to the ED for evaluation of generalized weakness. About one 1 week ago, patient developed sinus congestion and mild cough. Cough has been minimally productive for sputum. Cough and sinus congestion have been improving. Over the past few days, patient notes increasing generalized weakness. This morning, patient had difficulty getting to the bathroom and had to lower him to the floor. Patient reports he is typically very active, walking up to 30 minutes/day. He does not use a cane or walker at baseline. Patient reports a good appetite, denies abdominal pain, nausea, vomiting, diarrhea. No chest pain or shortness of breath. Denies lightheadedness, dizziness, diaphoresis, syncopal events. No urinary symptoms. In the ED, patient tested positive for COVID-19. He is saturating well on room air, there is no signs of infiltrate on CXR. Labs are unremarkable. Patient was given IVF. Allergies Allergy/AdvReac Type Severity Reaction Status Date / Time tramadol AdvReac Mild Urinary Verified 08/08/21 09:01 Blockage Home Medications Medication Instructions Recorded Confirmed Type aspirin 81 mg tablet,delayed 162 mg PO HS 01/27/21 05/16/22 History release (Symone Low Dose Aspirin) atorvastatin 40 mg tablet (Lipitor) 40 mg PO HS 01/27/21 05/16/22 History clopidogrel 75 mg tablet (Plavix) 75 mg PO HS 01/27/21 05/16/22 History isosorbide mononitrate 30 mg 30 mg PO QAM 01/27/21 05/16/22 History tablet,extended release 24 hr metoprolol succinate 25 mg 12.5 mg PO HS 01/27/21 05/16/22 History tablet,extended release 24 hr (Toprol XL) nitroglycerin 0.4 mg sublingual 0.4 mg sublingual UD 01/27/21 05/16/22 History tablet (Nitrostat) pantoprazole 40 mg tablet,delayed 40 mg PO QAM 01/27/21 05/16/22 History release (Protonix) valacyclovir 500 mg tablet 500 mg PO QAM 01/27/21 05/16/22 History (Valtrex) furosemide 20 mg tablet 20 mg PO DAILY 05/16/22 05/16/22 History Past Med/Surg History Medical History BPH (benign prostatic hyperplasia) CAD (coronary artery disease) 2009: GEM to RCA 2010: Known residual occlusion occlusion of the ramus intermedius that was not amenable to PCI (2010) > treated medically 2012: Mild distal left main disease and 90% ramus intermedius stenosis with left to left collaterals unchanged compared to prior. 40% LAD stenosis noted and RCA stents patent > treated medically CKD (chronic kidney disease), stage III CVA (cerebral vascular accident) ? CVA vs. TIA (2018, evaluated at [facility], no acute head/brain imaging findings- felt to be TIA per discharge summary) Diastolic dysfunction GERD (gastroesophageal reflux disease) controlled, stable per pt History of myocardial infarction 2008 > GEM to RCA Follows with S cardiology (preop appt scheduled 06/28) HLD (hyperlipidemia) HTN (hypertension) stable, controlled per pt Neurogenic claudication due to lumbar spinal stenosis Trigger finger of left hand Trigger finger of right hand Surgical History H/O heart artery stent History of cardiac cath 2008: GEM to RCA 2010: Known residual occlusion occlusion of the ramus intermedius that was not amenable to PCI (2010) > treated medically 2012: Mild distal left main disease and 90% ramus intermedius stenosis with left to left collaterals unchanged compared to prior. 40% LAD stenosis noted and RCA stents patent > treated medically Hx of colonoscopy Hx of laminectomy Hx of repair of right rotator cuff Family History Mother Dementia Father Stroke Social History Smoking Status: Never smoker Second Hand Exposure: No; Hx Alcohol Use: Yes Alcohol type: wine Alcohol Intake Frequency Comment: 1 glass wine day Hx Substance Use: No Preferred Language: Cambodian Communication Ability: Effective Software Integrator Required: No Beliefs That Will Affect Care: None Current Living Situation: Spouse Other Information That Helps Us Care for You: No Feels Safe at Home: Yes Safety Concerns: Feels Safe At This Time Assistive Devices: Glasses Review of Systems Review of Systems: ROS per HPI, all other systems reviewed and negative Physical Exam Constitutional: WD/WN, vitals as above Eyes: PERRL, conjunctivae normal, anicteric sclerae ENMT: external ear and nose normal, oropharynx normal Respiratory: normal respiratory effort, lungs clear to auscultation Cardiovascular: Rate/Rhythm: regular rate and regular rhythm Vessels: normal peripheral pulses Extremities: no edema Gastrointestinal (Abdomen): normal bowel sounds, soft, nontender, no hepatosplenomegaly Musculoskeletal: no cyanosis or clubbing, extremities motor strength 5/5 Skin: no rashes, warm and dry Neurologic: PERRL, EOMI, accommodation nl, no face palsy, no dysarthria Psychiatric: A+Ox3, euthymic affect Results & Data Results & Data ([facility]) Vital Signs (Past 12 Hours) Vital Signs Temp Pulse Pulse Resp BP BP Pulse Ox 05/16/22 10:00 84 18 151/91 H 95 05/16/22 08:00 78 18 165/85 H 94 05/16/22 07:08 95 05/16/22 06:00 37 C 79 18 149/79 H 95 05/16/22 06:00 37 C 76 20 149/79 H 95 O2 Del Method 05/16/22 10:00 Room Air 05/16/22 08:00 Room Air 05/16/22 07:08 Room Air 05/16/22 06:00 Room Air 05/16/22 06:00 Room Air Laboratory Results Short CBC 05/16/22 Range/Units 06:00 WBC 4.25 L (4.8-10.8) K/ul Hgb 13.9 L (14.0-18.0) g/dl Hct 40.8 (40.1-51.0) % Plt Count 108 L (130-400) K/uL BMP 05/16/22 06:00 Sodium 136 Potassium 3.8 Chloride 102 Carbon Dioxide 26 BUN 14 Creatinine 1.18 Glucose 107 H Calcium 9.0 Liver Function 05/16/22 Range/Units 06:00 Total Bilirubin 0.8 (0.2-1.0) mg/dl AST 21 (13-39) U/L ALT 19 (7-52) U/L Alkaline Phosphatase 67 (34-104) U/L Albumin 4.2 (3.4-5.0) gm/dl Urine 05/16/22 Range/Units 11:09 Urine Color Yellow Urine Appearance Clear (Clear) Urine pH 6.5 (4.5-7.5) Ur Specific [place] 1.013 (1.000-1.030) Urine Protein Negative (Negative) Urine Glucose (UA) Negative (Negative) Diagnostic Findings Chest X-Ray 05/16/22 06:47 SINGLE VIEW CHEST CLINICAL HISTORY: Generalized weakness. FINDINGS: 2 AP, portable, upright chest radiographs are compared to study dated 06/27/2021. Correlation is made with chest CT dated 12/19/2010. The heart is enlarged note atherosclerotic calcification of the thoracic aorta. The pulmonary vasculature is noncongested. Chronic interstitial thickening is similar to previous. There is mild elevation of the right hemidiaphragm with bibasilar scarring/atelectasis. The lungs and pleural spaces are otherwise clear. No pneumothorax is seen. The skeletal structures are osteopenic. The bony thorax is grossly intact. Fusion hardware is seen in the lumbar spine. IMPRESSION: Cardiomegaly with no active disease in the chest. ACT 112: Negative or not required by law. Electronically signed by: Kuldeep Mcfadden M.D. 05/16/2022 7:[address] 05/16/22 06:47 CT OF THE HEAD WITHOUT CONTRAST CLINICAL HISTORY: Weakness. Falls. COMPARISON STUDY: MRI of the brain January 23, 2018. Head CT January 27, 2021. CT DOSE: 614.27 mGy.cm TECHNIQUE: Helical axial images of the head were obtained without IV contrast. Automated exposure control was utilized for the study. A dose lowering technique was utilized adhering to the principles of ALARA. FINDINGS: No acute intracranial hemorrhage, midline shift or mass effect is present. Ventricular system is stable. Basal cisterns are patent. Prominence of the extra-axial spaces is due to atrophy. There are no extra-axial collections. White matter hypodensity suggests small vessel disease. There are no findings to suggest acute dural sinus thrombosis or acute territorial infarct. Right maxillary sinus is partially opacified. There is mild ethmoid sinus mucosal thickening. There is no acute calvarial fracture. IMPRESSION: 1. No acute intracranial findings. No significant change in appearance of the brain. 2. No acute calvarial fracture. ACT 112: Negative or not required by law. Electronically signed by: Angus Kendrick M.D. 05/16/2022 8:30 AM Code Status & VTE Plan Code Status Patient is a full code as per my discussion with him. VTE Prophylaxis Plan VTE Prophylaxis will be ordered: Yes Supervising Physician Co-Signing Physician Notes The patient is an 81-year-old man with a history of diastolic dysfunction who presents with generalized weakness in setting of COVID-19 infection. He has a mild cough and nasal congestion but declines any medications for this. He states this has been improving. Generalized weakness is present with no focal deficit on exam. He is comfortable and saturating well on room air with no signs of infiltrate on chest x-ray. He takes Lasix for leg swelling. is at bedside and corroborates the history of symptoms ongoing and reviewed medications with the undersigned. She is concerned for leg swelling and he will get his Lasix today. White blood cell count is 4.3 likely related to viral infection. H&H is normal. Platelet count is 108 again in the setting of infection. INR is normal. BMP is normal with a slightly elevated creatinine of 1.2 from baseline of 1. Electrolytes and liver function tests otherwise are normal. TSH was normal. Urinalysis is unrevealing. Head CT and chest x-ray were both within normal limits. EKG was nonischemic. He is in sinus rhythm. Agree with plan to admit to the hospital, continue supportive care and have therapy evaluate his abilities/progress. Nicole Tate DO [facility]
[2022-05-16 11:31] LABS: Appearance Urine Clear (Clear); Bacteria Urine Automated Negative (Negative); Bilirubin Urine Negative (Negative); Blood Urine Trace (Negative); Cast Urine Automated 0 /lpf (0-5); Color Urine Yellow; Glucose Urine UA Negative (Negative); Ketones Urine 1+ (Negative); Leukocyte Esterase Urine Negative (Negative); Nitrite Urine Negative (Negative); Protein Urine Negative (Negative); Specific Gravity Urine 1.013 (1.000-1.030); Urobilinogen Urine Negative (Negative); WBC Urine Automated 0 /hpf (0-5); pH Urine 6.5 (4.5-7.5)
[2022-05-16] MEDS: PANTOprazole 40 MG TAB PO SCH (13:50)
[2022-05-16] MEDS: valACYclovir HCL 500 MG TABLET PO SCH (13:50)
[2022-05-16] MEDS ORDERED: COUGH DROP (SUGAR FREE) LOZ 24 LOZ/1 BOX BUCCAL PRN (14:10)
[2022-05-16] MEDS: ISOSORBIDE MONO EXTENDED REL 30 MG TABCR PO SCH (14:33)
[2022-05-16] MEDS: FUROSEMIDE 20 MG TAB PO SCH (14:33)
[2022-05-16] MEDS: HEPARIN SOD 5,000 UNIT/0.5 ML VIAL SQ SCH ×2 (14:34→21:59)
--- NOTE | 2022-05-16 15:42 | Emergency Department Note ---
ED Provider Note CHIEF COMPLAINT: Generalized weakness HISTORY OF PRESENT ILLNESS: This 81-year-old male patient presents to the emergency department with complaints of generalized weakness. The patient has had a decline over the last 24 to 48 hours. He has had a dry cough but his family at the bedside notes that he has had some difficulty walking. She just noticed this today and tried to help him go to the bathroom. He was unable to move jail to the bathroom and bear weight. She stated he became somewhat confused when she ran to get the walker. He did not seem to be able to follow directions and they decided to slowly lowered to the ground. Patient denies any injuries. He does have a history of heart disease and CVA in the remote past. He is on Plavix and aspirin chronically. REVIEW OF SYSTEMS: A review of systems was performed with positives and pertinent negatives listed in the history of present illness. 10 systems were reviewed and are otherwise negative. ALLERGIES: see below MEDICATIONS: see below PMH: see below SOCIAL HISTORY: see below DDx: Infection, dehydration, metabolic abnormality, hypo/hyperglycemia, elect rolyte disturbance, anemia, hypoxia, cardiac sources, intracerebral event, toxicologic, neurologic, as well as other pathologies. PHYSICAL EXAM: Vital signs reviewed. General: Generally well-appearing elderly 81-year-old male, in no significant distress. HEENT: No scleral icterus, PERRLA, neck supple. Atraumatic. Cardiovascular: Regular rate and rhythm, no extra sounds. Pulmonary: Clear to auscultation bilaterally, normal work of breathing. Abdomen: Soft, nontender, nondistended, positive bowel sounds. Musculoskeletal: Atraumatic, no peripheral edema. Neurologic: Patient awake alert and oriented x 3, speech is clear Skin: Warm, dry, no rash EMERGENCY DEPARTMENT COURSE/MDM: [] MONITORING: An order for cardiac monitoring was placed and the patient is noted to be in a NSR at 83 beats per minute. RADIOLOGY: EKG: DISPOSITION: Past Med/Surg History Medical History BPH (benign prostatic hyperplasia) CAD (coronary artery disease) 2009: GEM to RCA 2011: Known residual occlusion occlusion of the ramus intermedius that was not amenable to PCI (2010) > treated medically 2012: Mild distal left main disease and 90% ramus intermedius stenosis with left to left collaterals unchanged compared to prior. 40% LAD stenosis noted and RCA stents patent > treated medically CKD (chronic kidney disease), stage III CVA (cerebral vascular accident) ? CVA vs. TIA (2018, evaluated at [facility], no acute head/brain imaging findings- felt to be TIA per discharge summary) Diastolic dysfunction GERD (gastroesophageal reflux disease) controlled, stable per pt History of myocardial infarction 2008 > GEM to RCA Follows with [facility] cardiology (preop appt scheduled 06/28) HLD (hyperlipidemia) HTN (hypertension) stable, controlled per pt Neurogenic claudication due to lumbar spinal stenosis Trigger finger of left hand Trigger finger of right hand Surgical History H/O heart artery stent History of cardiac cath 2008: GEM to RCA 2010: Known residual occlusion occlusion of the ramus intermedius that was not amenable to PCI (2010) > treated medically 2012: Mild distal left main disease and 90% ramus intermedius stenosis with left to left collaterals unchanged compared to prior. 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 Beliefs That Will Affect Care: None Current Living Situation: Spouse Feels Safe at Home: Yes Assistive Devices: Walker Allergies Allergies Allergy/AdvReac Type Severity Reaction Status Date / Time tramadol AdvReac Mild Urinary Verified 08/08/21 09:01 Blockage Home Meds Home Medications Medication Instructions Recorded Confirmed aspirin 81 mg tablet,delayed 162 mg PO HS 01/27/21 05/16/22 release (Symone Low Dose Aspirin) atorvastatin 40 mg tablet (Lipitor) 40 mg PO HS 01/27/21 05/16/22 clopidogrel 75 mg tablet (Plavix) 75 mg PO HS 01/27/21 05/16/22 isosorbide mononitrate 30 mg 30 mg PO QAM 01/27/21 05/16/22 tablet,extended release 24 hr metoprolol succinate 25 mg 12.5 mg PO HS 01/27/21 05/16/22 tablet,extended release 24 hr (Toprol XL) nitroglycerin 0.4 mg sublingual 0.4 mg sublingual UD 01/27/21 05/16/22 tablet (Nitrostat) pantoprazole 40 mg tablet,delayed 40 mg PO QAM 01/27/21 05/16/22 release (Protonix) valacyclovir 500 mg tablet 500 mg PO QAM 01/27/21 05/16/22 (Valtrex) furosemide 20 mg tablet 20 mg PO DAILY 05/16/22 05/16/22 Results & Data (ED) Vital Signs Vital Signs - 24 hr 05/16/22 06:00 05/16/22 06:00 05/16/22 07:08 Temperature 37 C 37 C Temperature Source Temporal Artery Scan Oral Pulse Rate 76 Pulse Rate [Finger] 79 Pulse Rate from SpO2 Sensor Pulse Rhythm Regular Pulse Rhythm [Finger] Regular Pulse Strength Normal Pulse Strength [Finger] Normal Respiratory Rate 20 18 Respiratory Effort / Characteristics Non-Labored Spontaneous Non-Labored Spontaneous Respiratory Depth Normal Normal Blood Pressure 149/79 H Blood Pressure [Right Arm] 149/79 H Blood Pressure Mean 102 Blood Pressure Mean [Right Arm] 102 Blood Pressure Position [Right Arm] Sitting Pulse Oximetry 95 95 95 Oxygen Delivery Method Room Air Room Air Room Air Sepsis Recent Fever Within 48 Hours No Sepsis New/Unexplained Change in Mental Status N/A Sepsis Action Taken by Nursing No Action Required 05/16/22 08:00 05/16/22 05:59 05/16/22 06:00 Temperature Temperature Source Pulse Rate 78 76 Pulse Rate [Finger] 78 Pulse Rate from SpO2 Sensor 76 76 Pulse Rhythm Pulse Rhythm [Finger] Pulse Strength Pulse Strength [Finger] Respiratory Rate 18 16 24 Respiratory Effort / Characteristics Respiratory Depth Blood Pressure Blood Pressure [Right Arm] 165/85 H Blood Pressure Mean Blood Pressure Mean [Right Arm] 111 Blood Pressure Position [Right Arm] Pulse Oximetry 94 95 94 Oxygen Delivery Method Room Air Sepsis Recent Fever Within 48 Hours Sepsis New/Unexplained Change in Mental Status Sepsis Action Taken by Nursing 05/16/22 06:30 05/16/22 07:00 05/16/22 07:30 Temperature Temperature Source Pulse Rate 78 78 81 Pulse Rate [Finger] Pulse Rate from SpO2 Sensor 78 78 81 Pulse Rhythm Pulse Rhythm [Finger] Pulse Strength Pulse Strength [Finger] Respiratory Rate 22 22 11 L Respiratory Effort / Characteristics Respiratory Depth Blood Pressure Blood Pressure [Right Arm] Blood Pressure Mean Blood Pressure Mean [Right Arm] Blood Pressure Position [Right Arm] Pulse Oximetry 94 94 96 Oxygen Delivery Method Sepsis Recent Fever Within 48 Hours Sepsis New/Unexplained Change in Mental Status Sepsis Action Taken by Nursing 05/16/22 08:01 05/16/22 08:28 05/16/22 08:28 Temperature Temperature Source Pulse Rate 81 78 Pulse Rate [Finger] Pulse Rate from SpO2 Sensor 79 Pulse Rhythm Pulse Rhythm [Finger] Pulse Strength Pulse Strength [Finger] Respiratory Rate 21 27 H Respiratory Effort / Characteristics Respiratory Depth Blood Pressure 165/85 H Blood Pressure [Right Arm] Blood Pressure Mean 111 Blood Pressure Mean [Right Arm] Blood Pressure Position [Right Arm] Pulse Oximetry 92 Oxygen Delivery Method Sepsis Recent Fever Within 48 Hours Sepsis New/Unexplained Change in Mental Status Sepsis Action Taken by Nursing 05/16/22 08:30 05/16/22 08:30 05/16/22 09:00 Temperature Temperature Source Pulse Rate 78 Pulse Rate [Finger] Pulse Rate from SpO2 Sensor 79 Pulse Rhythm Pulse Rhythm [Finger] Pulse Strength Pulse Strength [Finger] Respiratory Rate 23 Respiratory Effort / Characteristics Respiratory Depth Blood Pressure 161/84 H 174/88 H Blood Pressure [Right Arm] Blood Pressure Mean 109 116 Blood Pressure Mean [Right Arm] Blood Pressure Position [Right Arm] Pulse Oximetry 95 Oxygen Delivery Method Sepsis Recent Fever Within 48 Hours Sepsis New/Unexplained Change in Mental Status Sepsis Action Taken by Nursing 05/16/22 09:00 05/16/22 09:30 05/16/22 09:30 Temperature Temperature Source Pulse Rate 78 82 Pulse Rate [Finger] Pulse Rate from SpO2 Sensor 78 82 Pulse Rhythm Pulse Rhythm [Finger] Pulse Strength Pulse Strength [Finger] Respiratory Rate 18 26 H Respiratory Effort / Characteristics Respiratory Depth Blood Pressure 178/79 H Blood Pressure [Right Arm] Blood Pressure Mean 112 Blood Pressure Mean [Right Arm] Blood Pressure Position [Right Arm] Pulse Oximetry 94 94 Oxygen Delivery Method Sepsis Recent Fever Within 48 Hours Sepsis New/Unexplained Change in Mental Status Sepsis Action Taken by Nursing Laboratory Data Result diagrams: 05/16/22 06:00 05/16/22 06:00 Lab Results 05/16/22 05/16/22 05/16/22 Range/Units 06:00 06:00 06:00 WBC 4.25 L (4.8-10.8) K/ul RBC 4.30 L (4.63-6.08) M/uL Hgb 13.9 L (14.0-18.0) g/dl Hct 40.8 (40.1-51.0) % MCV 94.9 (80.0-100.0) fL MCH 32.3 (25.0-34.0) pg MCHC 34.1 (32.0-36.0) g/dL RDW Std Deviation 54.4 H (36.4-46.3) fL RDW Coeff of Bradley 15.4 H (11.5-14.5) % Plt Count 108 L (130-400) K/uL MPV 9.9 (9.4-12.4) fL Immature Gran % (Auto) 0.2 % Neut % (Auto) 65.7 % Lymph % (Auto) 20.2 % [place] % (Auto) 13.2 % Eos % (Auto) 0.2 % Baso % (Auto) 0.5 % Neut # (Auto) 2.79 (1.4-6.5) K/uL Lymph # (Auto) 0.86 L (1.2-3.4) K/uL [place] # (Auto) 0.56 (0.24-0.82) K/uL Eos # (Auto) 0.01 (0-0.50) K/uL Baso # (Auto) 0.02 (0-0.2) K/uL Immature Gran # (Auto) 0.01 (0.00-0.02) K/uL Platelet Estimate Decreased L (Normal) Echinocytes 1+ PT 11.9 (9.0-12.0) Seconds INR 1.1 (0.9-1.1) Sodium 136 (136-145) mmol/L Potassium 3.8 (3.5-5.1) mmol/L Chloride 102 (98-107) mmol/L Carbon Dioxide 26 (21-32) mmol/L Anion Gap 8 (3-11) BUN 14 (6-23) mg/dl Creatinine 1.18 (0.6-1.4) mg/dl Est Cr Clr Drug Dosing 53.9 ml/min Est GFR ( Amer) 66.7 ml/min Est GFR (Non-Af Amer) 57.5 ml/min BUN/Creatinine Ratio 11.9 (10-20) Glucose 107 H (70-99(Fasting)) mg/dl Calcium 9.0 (8.5-10.1) mg/dl Magnesium 1.9 (1.7-2.4) mg/dl Total Bilirubin 0.8 (0.2-1.0) mg/dl AST 21 (13-39) U/L ALT 19 (7-52) U/L Alkaline Phosphatase 67 (34-104) U/L Troponin I High Sens 14.9 (0-20) pg/ml Total Protein 6.8 (6.0-8.3) gm/dl Albumin 4.2 (3.4-5.0) gm/dl Globulin 2.6 (2.5-4.0) gm/dl Albumin/Globulin Ratio 1.6 (0.9-2) TSH (0.300-4.500) uIu/ml Anaplasma Smear See Comment Babesia Smear See Comment Lyme Disease IgG Ab (Negative) Lyme Disease IgM Ab (Negative) SARS-CoV-2 (PCR) (Negative) Influenza Type A (PCR) (Neg) Influenza Type B (PCR) (Neg) RSV (RT-PCR) (Neg) 05/16/22 05/16/22 05/16/22 Range/Units 06:00 06:00 06:00 WBC (4.8-10.8) K/ul RBC (4.63-6.08) M/uL Hgb (14.0-18.0) g/dl Hct (40.1-51.0) % MCV (80.0-100.0) fL MCH (25.0-34.0) pg MCHC (32.0-36.0) g/dL RDW Std Deviation (36.4-46.3) fL RDW Coeff of Bradley (11.5-14.5) % Plt Count (130-400) K/uL MPV (9.4-12.4) fL Immature Gran % (Auto) % Neut % (Auto) % Lymph % (Auto) % [place] % (Auto) % Eos % (Auto) % Baso % (Auto) % Neut # (Auto) (1.4-6.5) K/uL Lymph # (Auto) (1.2-3.4) K/uL [place] # (Auto) (0.24-0.82) K/uL Eos # (Auto) (0-0.50) K/uL Baso # (Auto) (0-0.2) K/uL Immature Gran # (Auto) (0.00-0.02) K/uL Platelet Estimate (Normal) Echinocytes PT (9.0-12.0) Seconds INR (0.9-1.1) Sodium (136-145) mmol/L Potassium (3.5-5.1) mmol/L Chloride (98-107) mmol/L Carbon Dioxide (21-32) mmol/L Anion Gap (3-11) BUN (6-23) mg/dl Creatinine (0.6-1.4) mg/dl Est Cr Clr Drug Dosing ml/min Est GFR ( Amer) ml/min Est GFR (Non-Af Amer) ml/min BUN/Creatinine Ratio (10-20) Glucose (70-99(Fasting)) mg/dl Calcium (8.5-10.1) mg/dl Magnesium (1.7-2.4) mg/dl Total Bilirubin (0.2-1.0) mg/dl AST (13-39) U/L ALT (7-52) U/L Alkaline Phosphatase (34-104) U/L Troponin I High Sens (0-20) pg/ml Total Protein (6.0-8.3) gm/dl Albumin (3.4-5.0) gm/dl Globulin (2.5-4.0) gm/dl Albumin/Globulin Ratio (0.9-2) TSH 0.516 (0.300-4.500) uIu/ml Anaplasma Smear Cancelled Babesia Smear Cancelled Lyme Disease IgG Ab Negative (Negative) Lyme Disease IgM Ab Negative (Negative) SARS-CoV-2 (PCR) (Negative) Influenza Type A (PCR) (Neg) Influenza Type B (PCR) (Neg) RSV (RT-PCR) (Neg) 05/16/22 Range/Units 08:25 WBC (4.8-10.8) K/ul RBC (4.63-6.08) M/uL Hgb (14.0-18.0) g/dl Hct (40.1-51.0) % MCV (80.0-100.0) fL MCH (25.0-34.0) pg MCHC (32.0-36.0) g/dL RDW Std Deviation (36.4-46.3) fL RDW Coeff of Bradley (11.5-14.5) % Plt Count (130-400) K/uL MPV (9.4-12.4) fL Immature Gran % (Auto) % Neut % (Auto) % Lymph % (Auto) % [place] % (Auto) % Eos % (Auto) % Baso % (Auto) % Neut # (Auto) (1.4-6.5) K/uL Lymph # (Auto) (1.2-3.4) K/uL [place] # (Auto) (0.24-0.82) K/uL Eos # (Auto) (0-0.50) K/uL Baso # (Auto) (0-0.2) K/uL Immature Gran # (Auto) (0.00-0.02) K/uL Platelet Estimate (Normal) Echinocytes PT (9.0-12.0) Seconds INR (0.9-1.1) Sodium (136-145) mmol/L Potassium (3.5-5.1) mmol/L Chloride (98-107) mmol/L Carbon Dioxide (21-32) mmol/L Anion Gap (3-11) BUN (6-23) mg/dl Creatinine (0.6-1.4) mg/dl Est Cr Clr Drug Dosing ml/min Est GFR ( Amer) ml/min Est GFR (Non-Af Amer) ml/min BUN/Creatinine Ratio (10-20) Glucose (70-99(Fasting)) mg/dl Calcium (8.5-10.1) mg/dl Magnesium (1.7-2.4) mg/dl Total Bilirubin (0.2-1.0) mg/dl AST (13-39) U/L ALT (7-52) U/L Alkaline Phosphatase (34-104) U/L Troponin I High Sens (0-20) pg/ml Total Protein (6.0-8.3) gm/dl Albumin (3.4-5.0) gm/dl Globulin (2.5-4.0) gm/dl Albumin/Globulin Ratio (0.9-2) TSH (0.300-4.500) uIu/ml Anaplasma Smear Babesia Smear Lyme Disease IgG Ab (Negative) Lyme Disease IgM Ab (Negative) SARS-CoV-2 (PCR) POSITIVE A* (Negative) Influenza Type A (PCR) Negative (Neg) Influenza Type B (PCR) Negative (Neg) RSV (RT-PCR) Negative (Neg) Administered Medications Furosemide (Furosemide 20 Mg Tab) 20 mg PO DAILY [facility] Stop: 06/15/22 12:55 Last Admin: 05/16/22 14:33 Dose: 20 mg Documented By: CADY Heparin Sodium (Porcine) (Heparin Sod 5,000 Unit/0.5 Ml Vial) 5,000 units SQ Q8 [facility] Stop: 06/15/22 13:59 Last Admin: 05/16/22 14:34 Dose: 5,000 units Documented By: CADY Isosorbide Mononitrate (Isosorbide [place] Extended Rel 30 Mg Tabcr) 30 mg PO QAM [facility] Stop: 06/15/22 12:55 Last Admin: 05/16/22 14:33 Dose: 30 mg Documented By: CADY Pantoprazole Sodium (Pantoprazole 40 Mg Tab) 40 mg PO QAM [facility] Stop: 06/15/22 12:55 Last Admin: 05/16/22 13:50 Dose: 40 mg Documented By: CADY Valacyclovir HCl (Valacyclovir Hcl 500 Mg Tablet) 500 mg PO QAM [facility] Stop: 06/15/22 12:55 Last Admin: 05/16/22 13:50 Dose: 500 mg Documented By: CADY Discontinued Medications Sodium Chloride (Nss 1000ml) 1,000 mls @ 125 mls/hr IV .Q8H [facility] Stop: 06/15/22 09:59 Last Admin: 05/16/22 14:04 Dose: 125 mls/hr Documented By: CADY Imaging Data Radiologist's Impression: Chest X-Ray 05/16/22 06:47 SINGLE VIEW CHEST CLINICAL HISTORY: Generalized weakness. FINDINGS: 2 AP, portable, upright chest radiographs are compared to study dated 06/27/2021. Correlation is made with chest CT dated 12/19/2010. The heart is enlarged note atherosclerotic calcification of the thoracic aorta. The pulmonary vasculature is noncongested. Chronic interstitial thickening is similar to previous. There is mild elevation of the right hemidiaphragm with bibasilar scarring/atelectasis. The lungs and pleural spaces are otherwise clear. No pneumothorax is seen. The skeletal structures are osteopenic. The bony thorax is grossly intact. Fusion hardware is seen in the lumbar spine. IMPRESSION: Cardiomegaly with no active disease in the chest. ACT 112: Negative or not required by law. Electronically signed by: Kuldeep Mcfadden M.D. 05/16/2022 7:[address] 05/16/22 06:47 CT OF THE HEAD WITHOUT CONTRAST CLINICAL HISTORY: Weakness. Falls. COMPARISON STUDY: MRI of the brain January 23, 2018. Head CT January 27, 2021. CT DOSE: 614.27 mGy.cm TECHNIQUE: Helical axial images of the head were obtained without IV contrast. Automated exposure control was utilized for the study. A dose lowering technique was utilized adhering to the principles of ALARA. FINDINGS: No acute intracranial hemorrhage, midline shift or mass effect is present. Ventricular system is stable. Basal cisterns are patent. Prominence of the extra-axial spaces is due to atrophy. There are no extra-axial collections. White matter hypodensity suggests small vessel disease. There are no findings to suggest acute dural sinus thrombosis or acute territorial infarct. Right maxillary sinus is partially opacified. There is mild ethmoid sinus mucosal thickening. There is no acute calvarial fracture. IMPRESSION: 1. No acute intracranial findings. No significant change in appearance of the brain. 2. No acute calvarial fracture. ACT 112: Negative or not required by law. Electronically signed by: Angus Kendrick M.D. 05/16/2022 8:30 AM Discharge Plan Visit Data Chief Complaint: Weakness Stated Complaint: Weakness, Fall ED Provider: Alessandra Kidd Patient Disposition: Admitted As Inpatient Discharge Instructions Interventions: ED Discharge Assessment Last Done: 05/16/22 12:56
[2022-05-16] MEDS: ACETAMINOPHEN 325 MG TAB PO PRN (18:24)
[2022-05-16] MEDS: CLOPIDOGREL BISULFATE 75 MG TAB PO SCH (21:59)
[2022-05-16] MEDS: ATORVASTATIN 40 MG TAB PO SCH (21:59)
[2022-05-16] MEDS: METOPROLOL SUCC 25MG EXT REL TAB PO SCH (22:02)
[2022-05-17] MEDS: ACETAMINOPHEN 325 MG TAB PO PRN ×2 (02:43→21:29)
[2022-05-17] MEDS: HEPARIN SOD 5,000 UNIT/0.5 ML VIAL SQ SCH ×3 (06:07→21:34)
[2022-05-17 08:08] LABS: Hematocrit (blood only) 40.8 % (40.1-51.0); Hemoglobin 13.9 g/dl (14.0-18.0); Mean Corpuscular Hemoglobin 32.3 pg (25.0-34.0); Mean Corpuscular Hgb Conc 34.1 g/dL (32.0-36.0); Mean Corpuscular Volume 94.7 fL (80.0-100.0); Mean Platelet Volume 9.6 fL (9.4-12.4); Platelet Count 107 K/uL (130-400); RDW Coefficient of Variation 15.4 % (11.5-14.5); RDW Standard Deviation 54.6 fL (36.4-46.3); Red Blood Count 4.31 M/uL (4.63-6.08); White Blood Count 3.52 K/ul (4.8-10.8)
[2022-05-17] MEDS: valACYclovir HCL 500 MG TABLET PO SCH (08:14)
[2022-05-17] MEDS: PANTOprazole 40 MG TAB PO SCH (08:14)
[2022-05-17] MEDS: FUROSEMIDE 20 MG TAB PO SCH (08:14)
[2022-05-17] MEDS: ISOSORBIDE MONO EXTENDED REL 30 MG TABCR PO SCH (08:14)
[2022-05-17] MEDS: ASPIRIN 81 MG ECTAB PO SCH (08:15)
--- NOTE | 2022-05-17 18:07 | Hospitalist Progress Note ---
Date of Service May 17, 2022 Assessment & Plan (1) Ambulatory dysfunction: (2) Generalized weakness: Plan: Present on admission with worsening generalized weakness and ambulatory dysfunction Possible related to COVID-19 Continue PT/OT Fall precaution Clinically improved (3) COVID-19: Plan: COVID vaccine x 2, plus 2 boosters, last on 10/2021 Saturating well on room air, no infiltrate noted on CXR Does not meet criteria for COVID-19 directed therapies (4) CAD (coronary artery disease): Plan: Appears stable, no reports of chest pain Continue ASA, Plavix, statin, beta-leticia, nitrate (5) Diastolic dysfunction: Plan: Echo 12/2021-EF 55%, grade 1 diastolic dysfunction Appears euvolemic Continue home dose Lasix (6) CKD (chronic kidney disease), stage III: Plan: Creatinine 1.1, at baseline Monitor renal functions (7) DVT prophylaxis: Plan: SQ heparin Admission and Anticipated Discharge Date Admission Date: May 16, 2022 Subjective Pt was seen and examined for follow up of weakness Lying in bed with no acute distress Pt said that he feels alot better compare to yesterday He was able to participate with therapy Denies any chest pain, palpitation, dizziness and SOB Review of Systems Review of Systems: All systems reviewed & are unremarkable except as noted in Subjective Physical Exam Physical Exam: General- No acute distress Head- atraumatic Eyes- PERRL, EOMI, ENT- oropharynx clear Neck- supple, no JVD Lungs- clear to auscultation Heart- regular rhythm; no murmur Abdomen- normal bowel sounds, soft, nontender Extremities- no calf tenderness Neuro- alert, oriented x 3; PERRL, EOMI; no facial palsy; no dysarthria Skin- warm & dry Results & Data Results & Data ([facility]) Vital Signs (Past 12 Hours) Vital Signs Temp Pulse Resp BP Pulse Ox Pulse Ox Pulse Ox 05/17/22 14:30 37.1 C 64 18 151/88 H 93 05/17/22 13:51 93 97 05/17/22 12:00 107/61 05/17/22 11:41 97 05/17/22 08:06 37.2 C 62 20 163/92 H 96 O2 Del Method O2 Flow Rate O2 Flow Rate 05/17/22 14:30 Room Air 05/17/22 13:51 0 0 05/17/22 12:00 05/17/22 11:41 05/17/22 08:06 Room Air
[2022-05-17] MEDS: METOPROLOL SUCC 25MG EXT REL TAB PO SCH (21:32)
[2022-05-17] MEDS: CLOPIDOGREL BISULFATE 75 MG TAB PO SCH (21:33)
[2022-05-17] MEDS: ATORVASTATIN 40 MG TAB PO SCH (21:33)
[2022-05-18] MEDS: HEPARIN SOD 5,000 UNIT/0.5 ML VIAL SQ SCH (06:28)
[2022-05-18] MEDS: FUROSEMIDE 20 MG TAB PO SCH (09:49)
[2022-05-18] MEDS: ASPIRIN 81 MG ECTAB PO SCH (09:49)
[2022-05-18] MEDS: ISOSORBIDE MONO EXTENDED REL 30 MG TABCR PO SCH (09:49)
[2022-05-18] MEDS: valACYclovir HCL 500 MG TABLET PO SCH (09:49)
[2022-05-18] MEDS: PANTOprazole 40 MG TAB PO SCH (09:49)
--- NOTE | 2022-05-20 10:00 | Discharge Summary ---
Date of Service May 18, 2022 Admission HPI Per Admitting Provider 81-year-old male with PMH CAD, carotid stenosis, HTN, CKD stage III, BPH, diastolic dysfunction, and other problems listed below who presents to the ED for evaluation of generalized weakness. About one 1 week ago, patient developed sinus congestion and mild cough. Cough has been minimally productive for sputum. Cough and sinus congestion have been improving. Over the past few days, patient notes increasing generalized weakness. This morning, patient had difficulty getting to the bathroom and had to lower him to the floor. Patient reports he is typically very active, walking up to 30 minutes/day. He does not use a cane or walker at baseline. Patient reports a good appetite, denies abdominal pain, nausea, vomiting, diarrhea. No chest pain or shortness of breath. Denies lightheadedness, dizziness, diaphoresis, syncopal events. No urinary symptoms. In the ED, patient tested positive for COVID-19. He is saturating well on room air, there is no signs of infiltrate on CXR. Labs are unremarkable. Patient was given IVF. Admission Exam Per Admitting Provider Constitutional: WD/WN, vitals as above Eyes: PERRL, conjunctivae normal, anicteric sclerae ENMT: external ear and nose normal, oropharynx normal Respiratory: normal respiratory effort, lungs clear to auscultation Cardiovascular: Rate/Rhythm: regular rate and regular rhythm Vessels: normal peripheral pulses Extremities: no edema Gastrointestinal (Abdomen): normal bowel sounds, soft, nontender, no hepatosplenomegaly Musculoskeletal: no cyanosis or clubbing, extremities motor strength 5/5 Skin: no rashes, warm and dry Neurologic: PERRL, EOMI, accommodation nl, no face palsy, no dysarthria Psychiatric: A+Ox3, euthymic affect Principal Diagnosis Ambulatory dysfunction: Generalized weakness: COVID-19: CAD (coronary artery disease): Diastolic dysfunction: CKD (chronic kidney disease), stage III: Discharge Exam General- No acute distress Head- atraumatic Eyes- PERRL, EOMI, ENT- oropharynx clear Neck- supple, no JVD Lungs- clear to auscultation Heart- regular rhythm; no murmur Abdomen- normal bowel sounds, soft, nontender Extremities- no calf tenderness Neuro- alert, oriented x 3; PERRL, EOMI; no facial palsy; no dysarthria Skin- warm & dry Discharge Data Allergies Allergy/AdvReac Type Severity Reaction Status Date / Time tramadol AdvReac Mild Urinary Verified 08/08/21 09:01 Blockage Consultations 05/16/22 09:49 ED Decision to Admit Stat Ordered Studies 05/16/22 06:47 CT head/brain wo con Stat Laboratory Results WBC 3.52 K/ul (4.8-10.8) L 05/17/22 07:28 RBC 4.31 M/uL (4.63-6.08) L 05/17/22 07:28 Hgb 13.9 g/dl (14.0-18.0) L 05/17/22 07:28 Hct 40.8 % (40.1-51.0) 05/17/22 07:28 MCV 94.7 fL (80.0-100.0) 05/17/22 07:28 MCH 32.3 pg (25.0-34.0) 05/17/22 07:28 MCHC 34.1 g/dL (32.0-36.0) 05/17/22 07:28 RDW Std Deviation 54.6 fL (36.4-46.3) H 05/17/22 07:28 RDW Coeff of Bradley 15.4 % (11.5-14.5) H 05/17/22 07:28 Plt Count 107 K/uL (130-400) L 05/17/22 07:28 MPV 9.6 fL (9.4-12.4) 05/17/22 07:28 Immature Gran % (Auto) 0.2 % 05/16/22 06:00 Neut % (Auto) 65.7 % 05/16/22 06:00 Lymph % (Auto) 20.2 % 05/16/22 06:00 [place] % (Auto) 13.2 % 05/16/22 06:00 Eos % (Auto) 0.2 % 05/16/22 06:00 Baso % (Auto) 0.5 % 05/16/22 06:00 Neut # (Auto) 2.79 K/uL (1.4-6.5) 05/16/22 06:00 Lymph # (Auto) 0.86 K/uL (1.2-3.4) L 05/16/22 06:00 [place] # (Auto) 0.56 K/uL (0.24-0.82) 05/16/22 06:00 Eos # (Auto) 0.01 K/uL (0-0.50) 05/16/22 06:00 Baso # (Auto) 0.02 K/uL (0-0.2) 05/16/22 06:00 Immature Gran # (Auto) 0.01 K/uL (0.00-0.02) 05/16/22 06:00 Platelet Estimate Decreased (Normal) L 05/16/22 06:00 Echinocytes 1+ 05/16/22 06:00 PT 11.9 Seconds (9.0-12.0) 05/16/22 06:00 INR 1.1 (0.9-1.1) 05/16/22 06:00 Sodium 136 mmol/L (136-145) 05/16/22 06:00 Potassium 3.8 mmol/L (3.5-5.1) 05/16/22 06:00 Chloride 102 mmol/L (98-107) 05/16/22 06:00 Carbon Dioxide 26 mmol/L (21-32) 05/16/22 06:00 Anion Gap 8 (3-11) 05/16/22 06:00 BUN 14 mg/dl (6-23) 05/16/22 06:00 Creatinine 1.18 mg/dl (0.6-1.4) 05/16/22 06:00 Est Cr Clr Drug Dosing 53.9 ml/min 05/16/22 06:00 Est GFR ( Amer) 66.7 ml/min 05/16/22 06:00 Est GFR (Non-Af Amer) 57.5 ml/min 05/16/22 06:00 BUN/Creatinine Ratio 11.9 (10-20) 05/16/22 06:00 Glucose 107 mg/dl (70-99(Fasting)) H 05/16/22 06:00 Calcium 9.0 mg/dl (8.5-10.1) 05/16/22 06:00 Magnesium 1.9 mg/dl (1.7-2.4) 05/16/22 06:00 Total Bilirubin 0.8 mg/dl (0.2-1.0) 05/16/22 06:00 AST 21 U/L (13-39) 05/16/22 06:00 ALT 19 U/L (7-52) 05/16/22 06:00 Alkaline Phosphatase 67 U/L (34-104) 05/16/22 06:00 Troponin I High Sens 14.9 pg/ml (0-20) 05/16/22 06:00 Total Protein 6.8 gm/dl (6.0-8.3) 05/16/22 06:00 Albumin 4.2 gm/dl (3.4-5.0) 05/16/22 06:00 Globulin 2.6 gm/dl (2.5-4.0) 05/16/22 06:00 Albumin/Globulin Ratio 1.6 (0.9-2) 05/16/22 06:00 TSH 0.516 uIu/ml (0.300-4.500) 05/16/22 06:00 Urine Color Yellow 05/16/22 11:09 Urine Appearance Clear (Clear) 05/16/22 11:09 Urine pH 6.5 (4.5-7.5) 05/16/22 11:09 Ur Specific [place] 1.013 (1.000-1.030) 05/16/22 11:09 Urine Protein Negative (Negative) 05/16/22 11:09 Urine Glucose (UA) Negative (Negative) 05/16/22 11:09 Urine Ketones 1+ (Negative) H 05/16/22 11:09 Urine Blood Trace (Negative) H 05/16/22 11:09 Urine Nitrite Negative (Negative) 05/16/22 11:09 Urine Bilirubin Negative (Negative) 05/16/22 11:09 Urine Urobilinogen Negative (Negative) 05/16/22 11:09 Ur Leukocyte Esterase Negative (Negative) 05/16/22 11:09 Urine WBC (Auto) 0 /hpf (0-5) 05/16/22 11:09 Urine RBC (Auto) 5-10 /hpf (0-4) H 05/16/22 11:09 U Hyaline Cast (Auto) 0 /lpf (0-5) 05/16/22 11:09 U Epithel Cells (Auto) 5-10 /lpf (0-5) H 05/16/22 11:09 Urine Bacteria (Auto) Negative (Negative) 05/16/22 11:09 Anaplasma Smear Cancelled 05/16/22 06:00 Anaplasma Smear See Comment 05/16/22 06:00 Babesia Smear Cancelled 05/16/22 06:00 Babesia Smear See Comment 05/16/22 06:00 Lyme Disease IgG Ab Negative (Negative) 05/16/22 06:00 Lyme Disease IgM Ab Negative (Negative) 05/16/22 06:00 SARS-CoV-2 (PCR) POSITIVE (Negative) A* 05/16/22 08:25 Influenza Type A (PCR) Negative (Neg) 05/16/22 08:25 Influenza Type B (PCR) Negative (Neg) 05/16/22 08:25 RSV (RT-PCR) Negative (Neg) 05/16/22 08:25 Impressions Chest X-Ray 05/16/22 06:47 SINGLE VIEW CHEST CLINICAL HISTORY: Generalized weakness. FINDINGS: 2 AP, portable, upright chest radiographs are compared to study dated 06/27/2021. Correlation is made with chest CT dated 12/19/2010. The heart is enlarged note atherosclerotic calcification of the thoracic aorta. The pulmonary vasculature is noncongested. Chronic interstitial thickening is similar to previous. There is mild elevation of the right hemidiaphragm with bibasilar scarring/atelectasis. The lungs and pleural spaces are otherwise clear. No pneumothorax is seen. The skeletal structures are osteopenic. The bony thorax is grossly intact. Fusion hardware is seen in the lumbar spine. IMPRESSION: Cardiomegaly with no active disease in the chest. ACT 112: Negative or not required by law. Electronically signed by: Kuldeep Mcfadden M.D. 05/16/2022 7:[address] 05/16/22 06:47 CT OF THE HEAD WITHOUT CONTRAST CLINICAL HISTORY: Weakness. Falls. COMPARISON STUDY: MRI of the brain January 23, 2018. Head CT January 27, 2021. CT DOSE: 614.27 mGy.cm TECHNIQUE: Helical axial images of the head were obtained without IV contrast. Automated exposure control was utilized for the study. A dose lowering technique was utilized adhering to the principles of ALARA. FINDINGS: No acute intracranial hemorrhage, midline shift or mass effect is present. Ventricular system is stable. Basal cisterns are patent. Prominence of the extra-axial spaces is due to atrophy. There are no extra-axial collections. White matter hypodensity suggests small vessel disease. There are no findings to suggest acute dural sinus thrombosis or acute territorial infarct. Right maxillary sinus is partially opacified. There is mild ethmoid sinus mucosal thickening. There is no acute calvarial fracture. IMPRESSION: 1. No acute intracranial findings. No significant change in appearance of the brain. 2. No acute calvarial fracture. ACT 112: Negative or not required by law. Electronically signed by: Angus Kendrick M.D. 05/16/2022 8:30 AM Hospital Course (1) Ambulatory dysfunction: (2) Generalized weakness: Present on admission with worsening generalized weakness and ambulatory dysfunction Possible related to COVID-19 Continue PT/OT Fall precaution Clinically improved (3) COVID-19: COVID vaccine x 2, plus 2 boosters, last on 10/2021 Saturating well on room air, no infiltrate noted on CXR Does not meet criteria for COVID-19 directed therapies Stable (4) CAD (coronary artery disease): Appears stable, no reports of chest pain Continue ASA, Plavix, statin, beta-leticia, nitrate (5) Diastolic dysfunction: Echo 12/2021-EF 55%, grade 1 diastolic dysfunction Appears euvolemic Continue home dose Lasix (6) CKD (chronic kidney disease), stage III: Creatinine 1.1, at baseline Monitor renal functions (7) DVT prophylaxis: SQ heparin Total Time Total Time Spent Total Time Spent (In Minutes): 35 minutes Discharge Plan Discharge Items Patient Disposition: Home - Self-Care Reason For Visit: Weakness, COVID + Discharge Diagnosis: Ambulatory dysfunction: Generalized weakness: COVID-19: CAD (coronary artery disease): Diastolic dysfunction: CKD (chronic kidney disease), stage III: Activity: Resume your previous activity Non-emergency contact: Primary Care Provider Call non-emergency contact if: you have any medication questions Follow-up/Referrals: Olga Montague DO [Primary Care Provider] - 05/28/22 11:20 am (Date & Time 05/28/2022 11:20 AM Provider Olga Montague DO [facility] ) Diet: Heart Healthy Addtl Attending Provider Instructions: Follow with your primary care provider on 05/28/2022 @ 11:20 AM Olga Montague DO [facility] Continue outpatient physical therapy as needed Continue to wear mask an practice social distance Home Isolation COVID-19 Instructions The following information about Home Isolation is from the CDC Website: https://www.cdc.gov/coronavirus/2019-ncov/hcp/acgkdbsj-fhssyql-omgjvc.html Stay home except to get medical care People who are mildly ill with COVID-19 are able to isolate at home during their illness. You should restrict activities outside your home, except for getting medical care. Do not go to work, school, or public areas. Avoid using public transportation, ride-sharing, or taxis. Separate yourself from other people and animals in your home People: As much as possible, you should stay in a specific room and away from other people in your home. Also, you should use a separate bathroom, if available. Animals: You should restrict contact with pets and other animals while you are sick with COVID-19, just like you would around other people. Although there have not been reports of pets or other animals becoming sick with COVID-19, it is still recommended that people sick with COVID-19 limit contact with animals until more information is known about the virus. When possible, have another member of your household care for your animals while you are sick. If you are sick with COVID-19, avoid contact with your pet, including petting, snuggling, being kissed or licked, and sharing food. If you must care for your pet or be around animals while you are sick, wash your hands before and after you interact with pets and wear a face mask. Call ahead before visiting your doctor If you have a medical appointment, call the healthcare provider and tell them that you have or may have COVID-19. This will help the healthcare providers office take steps to keep other people from getting infected or exposed. Wear a face mask You should wear a face mask when you are around other people (e.g., sharing a room or vehicle) or pets and before you enter a healthcare providers office. If you are not able to wear a face mask (for example, because it causes trouble breathing), then people who live with you should not stay in the same room with you, or they should wear a face mask if they enter your room. Cover your coughs and sneezes Cover your mouth and nose with a tissue when you cough or sneeze. Throw used tissues in a lined trash can. Immediately wash your hands with soap and water for at least 20 seconds or, if soap and water are not available, clean your hands with an alcohol-based hand pecan mallow dipper that contains at least 60% alcohol. Clean your hands often Wash your hands often with soap and water for at least 20 seconds, especially after blowing your nose, coughing, or sneezing; going to the bathroom; and before eating or preparing food. If soap and water are not readily available, use an alcohol-based hand pecan mallow dipper with at least 60% alcohol, covering all surfaces of your hands and rubbing them together until they feel dry. Soap and water are the best option if hands are visibly dirty. Avoid touching your eyes, nose, and mouth with unwashed hands. Avoid sharing personal household items You should not share dishes, drinking glasses, cups, eating utensils, towels, or bedding with other people or pets in your home. After using these items, they should be washed thoroughly with soap and water. Clean all high-touch surfaces everyday High touch surfaces include counters, tabletops, doorknobs, bathroom fixtures, toilets, phones, keyboards, tablets, and bedside tables. Also, clean any surfaces that may have blood, stool, or body fluids on them. Use a household cleaning spray or wipe, according to the label instructions. Labels contain instructions for safe and effective use of the cleaning product including precautions you should take when applying the product, such as wearing gloves and making sure you have good ventilation during use of the product. Monitor your symptoms Seek prompt medical attention if your illness is worsening (e.g., difficulty breathing).Beforeseeking care, call your healthcare provider and tell them that you have, or are being evaluated for, COVID-19. Put on a face mask before you enter the facility. These steps will help the healthcare providers office to keep other people in the office or waiting room from getting infected or exposed. Ask your healthcare provider to call the local or state health department. Persons who are placed under active monitoring or facilitated self- monitoring should follow instructions provided by their local health department or occupational health professionals, as appropriate. When working with your local health department check their available hours. If you have a medical emergency and need to call 911, notify the dispatch personnel that you have, or are being evaluated for COVID-19. If possible, put on a face mask before emergency medical services arrive. Discontinuing home isolation Patients with confirmed COVID-19 should remain under home isolation precautions until the risk of secondary transmission to others is thought to be low. The decision to discontinue home isolation precautions should be made on a eodm-jf-dypc basis, in consultation with healthcare providers and state and local health departments. Coronavirus disease 2019 (COVID-19) is a virus that causes a respiratory illness. It is caused by a coronavirus called 2019 novel coronavirus (2019- nCoV). There are many types of coronavirus. Coronaviruses are a very common cause of bronchitis. They may sometimes cause lung infection(pneumonia). Symptoms can range from mild to severe respiratory illness. These viruses are also foundin some animals. COVID-19 was first found in people in [facility], in late 2018. In 2020, several cases of COVID-19 have been confirmed in the [place] Public health officials are working to find the source. How the virus spreads is not yet fully known. It may be spread through droplets of fluid that a person coughs or sneezes into the air. It may be spread if you touch a surface with virus on it, such as a handle or object, and then touch your mouth. What are the symptoms of COVID-19? Some people have no symptoms or mild symptoms. Symptoms may appear 2 to 14 days after contact with the virus. Symptoms can include: Fever Coughing Trouble breathing What are possible complications from COVID-19? In many cases, this virus can cause infection (pneumonia) in both lungs. In some cases, this can cause . How is COVID-19 diagnosed? Your healthcare provider will ask about your symptoms. He or she will also ask about your recent travel and contact with sick people. Testing for the virus is only done through the CDC. If yourhealthcare provider thinks you may have COVID- 19, he or she will work with your local health department and the CDC on testing. Follow all instructions from your healthcare provider. COVID-19 is diagnosed by: Nasal and throat swab. A cotton-tipped swab is wiped inside your nose or throat. This is done to check for viruses in your nasal mucus. Sputum culture. A small sample of mucus coughed from your lungs (sputum) is collected if you have a cough. It is checked for the virus. How is COVID-19 treated? There is currently no medicine to treat the virus. Treatment is done to help your body while it fights the virus. This is known as supportive care. Supportive care may include: Pain medicine. These include acetaminophen and ibuprofen. They are used to help ease pain and reduce fever. Bed rest. This helps your body fight the illness. For severe illness, you may need to stay in the hospital. Care during severe illness may include: IV (intravenous) fluids.These are given through a vein to help keep your body hydrated. Oxygen. Supplemental oxygen or ventilation with a breathing machine (ventilator) may be given. This is done to keep enough oxygen in your body. Are you at risk for COVID-19? If youve been to a place where people have been sick with this virus, you are at risk for infection. You are at risk if you: Recently traveled to an affected area Had contact with a sick person who recently traveled to this area Had contact with a person who was diagnosed with COVID-19 How can COVID-19 be prevented? There is no vaccine yet. The best prevention is to not have contact with the virus. The CDC advises that people should not travel to areas where there are COVID-19 outbreaks right now for any reason that is not urgent. To help prevent spreading the infection, wash your hands often, or use an alcohol-basedhand pecan mallow dipper. If you are in an area with COVID-19: Wash your hands often. Or use an alcohol-based hand pecan mallow dipper often. Only touch your eyes, nose, or mouth with clean hands. Dont have contact with people who are sick. Follow local instructions about being in public. For example, you may be told to not use public transport for a period of time. Stay away from markets that have live or animals. Wash your hands after touching any animals. Don't touch animals that may be sick. Dont share eating or drinking tools with sick people. Dont kiss someone who is sick. Clean surfaces often with disinfectant. If you were in an area with COVID-19 in the last 14 days: Call your healthcare provider. He or she can talk with local health staff to see what action may be needed. Follow all instructions from your provider. Take your temperature every morning and evening for at least 14 days. This is to check for fever. Keep a record of the readings. Keep watch for symptoms of the virus. Tell your provider right away if you have symptoms. If you were in an area with COVID-19 and have a fever or other symptoms: Dont panic. Keep in mind that other illnesses can cause similar symptoms. Stay away from work, school, and public places. Limit physical contact with family members. Don't kiss anyone or share eating or drinking utensils. Clean surfaces you touch with disinfectant. This is to help prevent the virus from spreading. Call your healthcare provider. Explain that you have been exposed to COVID-19 and have symptoms. Do this before going to any hospital. Wait for instructions. Keep in mind that healthcare staff may wear protective equipment such as masks, gowns, gloves, and eye protection. You may be put in a separate room. This is to prevent the possible virus from spreading. Tell the healthcare staff about recent travel. This includes local travel on public transport. Staff may need to find other people you have been in contact with. Follow all instructions the healthcare staff give you. If you have been diagnosed with COVID-19 Follow all instructions from your healthcare provider. Dont leave your home, except to get medical care. Call your healthcare providers office before going. They can prepare and give you instructions. This will help prevent the virus from spreading. Dont go to work, school, or public areas. Dont use public transport or taxis. Stay away from other people in your home. Have them wear face masks around you. Dont share household items or food. Wear a face mask if you can. This includes at home or in a medical facility. Cover your face with a tissue when you cough or sneeze. Throw the tissue away. Wash your hands. Wash your hands often. Caregivers should: Follow all instructions from healthcare staff. Wear a face mask and protective clothing as advised. Wash hands often. Keep track of the sick persons symptoms. Clean surfaces, fabrics, and laundry thoroughly. Keep other people away from the sick person. When to call your healthcare provider Call your healthcare provider: If youve recently traveled and have symptoms If you have been diagnosed with COVID-19 and your symptoms are worse To learn more To find out more about COVID-19, visit the CDC website at www.cdc.gov/coronavirus/2019-ncov/index.html. [employer]. [address] [place] [address], [place] [address]. All rights reserved. This information is not intended as a substitute for professional medical care. Always follow your healthcare professional's instructions. This information has been adapted from [employer] Pending Studies at Discharge: No Stand-Alone Forms: [facility], Smoking Cessation Medications and DC Order Prescriptions: Continued atorvastatin [Lipitor] 40 mg tablet 40 mg PO HS isosorbide mononitrate 30 mg tablet extended release 24 hr 30 mg PO QAM clopidogrel [Plavix] 75 mg tablet 75 mg PO HS valacyclovir [Valtrex] 500 mg tablet 500 mg PO QAM aspirin [Symone Low Dose Aspirin] 81 mg Tablet,Delayed Release (Dr/Ec) 162 mg PO HS pantoprazole [Protonix] 40 mg tablet,delayed release (DR/EC) 40 mg PO QAM nitroglycerin [Nitrostat] 0.4 mg Tablet, Sublingual 0.4 mg sublingual UD metoprolol succinate [Toprol XL] 25 mg tablet extended release 24 hr 12.5 mg PO HS furosemide 20 mg tablet 20 mg PO DAILY Discharge Orders: Discharge Order (Routine); Ordered 05/18/22 Ordered By: Hawa Blackwood Admission Data Admit Date/Time: 05/16/22 09:54 Attending Provider: Hawa Blackwood Admit Provider: Nicole Tate Primary Care Provider: Olga Montague Other Providers: Nicole Tate Other Interventions: Discharge Summary Assessment (RN) Last Done: 05/18/22 14:16
[2022-05-20 20:16] LABS: Babesia microti DNA Not Detected (Not Detected)
== END 2022-05-18 15:03 | disposition home or self-care (01) | DRG 179 ==
LOC: ED 05:46 → SUATTDRO 09:54 → EDINP 09:54 → 3N 12:56

== ENCOUNTER 2024-09-28 20:14 | Observation (INO) ==
--- NOTE | 2024-09-28 20:47 | Emergency Department Note ---
Impression & Plan Chest pain, HTN (hypertension) ED Provider Note Provider: Dimas Aquino MD CHIEF COMPLAINT: Chest discomfort & hypertension HISTORY OF PRESENT ILLNESS: Patient is a 84-year-old gentleman past medical history of BPH, CAD with stent, hypertension, hyperlipidemia, CVA on aspirin and Plavix presenting here today reporting onset this afternoon of this feeling little bit off. Just before 5 PM developed some left-sided chest discomfort. There is occasional pause or extra beat of his heart but no severe palpitations reported or fainting. They did monitor his blood pressure at home and normally is well-controlled but jumped into the 150s and then 170 systolic there. No syncope or trauma. No significant breathing issues or abdominal pain. Denies recent URI symptoms. Had cardiac stenting many years ago. States compliance with his home aspirin and Plavix. Did take his evening medications tonight. Chest pain now has resolved. No recent stress test. PAST MEDICAL HISTORY: As noted above MEDICATIONS: Reviewed home medications SOCIAL HISTORY: Non-smoker PHYSICAL EXAM: GENERAL: alert and oriented in no acute distress on stretcher Head: normocephalic and atraumatic EYES: No injection, discharge or icterus. NECK: Trachea midline. ENT: Mucous membranes pink and moist. LUNGS: Airway patent. No retractions. Breath sounds clear with good air entry bilaterally. HEART: Regular rate and rhythm. No chest wall tenderness ABDOMEN: Soft and non-tender, without guarding or rebound. SKIN: Acyanotic, warm, dry, without rashes EXTREMITIES: Without swelling, tenderness or deformity NEUROLOGICAL: No focal deficits. No aphasia. No facial droop or slurred speech. Ambulatory. EK beats per minutes rhythm first-degree block. Left axis. No significant PVC or PAC. No acute ST segment elevation or depression with QTc 4 9 CONTINUOUS CARDIAC MONITORING: was ordered and showed a heart rate of 60s-70s bpm in sinus with first-degree heart block rare PVC Patient's laboratory studies and imaging reviewed. Differential includes Cardiac ischemia, aortic dissection, pulmonary embolism, pneumothorax, pneumonia, pericarditis, myocarditis, esophageal rupture, GERD, cholecystitis, pancreatitis, musculoskeletal, as well as other pathologies. IMPRESSION/MEDICAL DECISION MAKING: Patient well-appearing no distress. EKG without evidence of STEMI. No chest pain currently. Not repeatable on palpation of the chest. Blood pressure initially elevated upon arrival does improve here without significant intervention. No significant arrhythmia noted here. Certainly risk factors given his age and prior cardiac history. Troponin is sent. Does not appear to have signs of fluid overload. No significant breathing difficulties tachycardia or hypoxia and I doubt PE. Pain is resolved now and I doubt dissection. Did give additional aspirin for full dose today. Is on Plavix as well. Blood work here today without significant anemia or leukocytosis. Normal platelet count. Normal electrolytes and renal function. No evidence of acute transaminitis. Negative troponin here. Blood pressure still in the 150s to 160s systolic. Discussed with him and family at bedside findings. My review and interpretation of the chest x-ray does not show evidence of any significant pneumonia, pneumothorax, or cardiomegaly. Patient states he said a few small very brief less than 5-second twinges of pain while here. Could be muscular or gastric in nature but given his age, risk factors, and continued hypertension discussed with him options. Insert is making feel observation is quite appropriate. Heart score 4. Discussed with the hospitalist for further care and observation here. DIAGNOSIS: Chest pain, hypertension DISPOSITION: Hospitalist will evaluate Patient was agreeable with this plan. Past Med/Surg History Problem List (Updated 09/28/24 @ 22:38 by Dimas Aquino M.D.) Chest pain (Acute) S/P trigger finger release Encounter for pre-operative examination Trigger middle finger of left hand CVA (cerebral vascular accident) ? CVA vs. TIA (2018, evaluated at [facility], no acute head/brain imaging findings- felt to be TIA per discharge summary) BPH (benign prostatic hyperplasia) (Chronic) GERD (gastroesophageal reflux disease) (Chronic) controlled, stable per pt HLD (hyperlipidemia) (Chronic) HTN (hypertension) (Chronic) stable, controlled per pt Medical History Ambulatory dysfunction BPH (benign prostatic hyperplasia) CAD (coronary artery disease) 2008: GEM to RCA 2010: Known residual occlusion occlusion of the ramus intermedius that was not amenable to PCI (2010) > treated medically 2012: Mild distal left main disease and 90% ramus intermedius stenosis with left to left collaterals unchanged compared to prior. 40% LAD stenosis noted and RCA stents patent > treated medically CKD (chronic kidney disease), stage III CVA (cerebral vascular accident) ? CVA vs. TIA (2018, evaluated at [facility], no acute head/brain imaging findings- felt to be TIA per discharge summary) Diastolic dysfunction Generalized weakness GERD (gastroesophageal reflux disease) controlled, stable per pt History of COVID-19 oct or early , home test, not hosp; mild symptoms>resolved. History of myocardial infarction 2008 > GEM to RCA Follows with [facility] cardiology HLD (hyperlipidemia) HTN (hypertension) stable, controlled per pt Hx of iron deficiency anemia fall 2021, had to have an iron infusion Neurogenic claudication due to lumbar spinal stenosis Trigger finger of left hand Surgical History H/O heart artery stent 2008, [facility] [place], x2 stents; f/u dr richards, [facility] cardio History of back surgery 07/2021, decompression and fusion History of cardiac cath 2008: GEM to RCA 2010: Known residual occlusion occlusion of the ramus intermedius that was not amenable to PCI (2010) > treated medically 2011: Mild distal left main disease and 90% ramus intermedius stenosis with left to left collaterals unchanged compared to prior. 40% LAD stenosis noted and RCA stents patent > treated medically Hx of bilateral cataract extraction Hx of colonoscopy Hx of laminectomy Hx of oral surgery dental implant surgery Hx of repair of right rotator cuff Family History Mother Dementia Father Stroke Social History Smoking Status: Never smoker Tobacco Type: Cigarettes Second Hand Exposure: Yes (growing up); Do You Dip or Chew Tobacco: No; Hx Alcohol Use: Yes Alcohol type: wine Alcohol Intake Frequency Comment: 1 glass wine day Hx Substance Use: No Preferred Language: Spanish Communication Ability: Effective House Servant Required: No Beliefs That Will Affect Care: None marital status: Current Living Situation: Spouse Feels Safe at Home: Yes Assistive Devices: Denture - Upper, Denture - Lower, Glasses and Hearing Aid - Bilateral Allergies Allergies Allergy/AdvReac Type Severity Reaction Status Date / Time tramadol AdvReac Mild Urinary Verified 04/03/23 10:49 Blockage Home Meds Home Medications Medication Instructions Recorded Confirmed aspirin 81 mg tablet,delayed 162 mg PO HS 01/27/21 04/03/23 release (Symone Low Dose Aspirin) atorvastatin 40 mg tablet (Lipitor) 40 mg PO HS 01/27/21 04/03/23 clopidogrel 75 mg tablet (Plavix) 75 mg PO HS 01/27/21 04/03/23 isosorbide mononitrate 30 mg 30 mg PO QAM 01/27/21 04/03/23 tablet,extended release 24 hr metoprolol succinate 25 mg 12.5 mg PO HS 01/27/21 04/03/23 tablet,extended release 24 hr (Toprol XL) nitroglycerin 0.4 mg sublingual 0.4 mg sublingual UD PRN Chest Pain 01/27/21 04/03/23 tablet (Nitrostat) pantoprazole 40 mg tablet,delayed 40 mg PO QAM 01/27/21 04/03/23 release (Protonix) valacyclovir 500 mg tablet 500 mg PO QAM 01/27/21 04/03/23 (Valtrex) furosemide 20 mg tablet 20 mg PO QAM 05/16/22 04/03/23 tamsulosin 0.4 mg capsule 0.4 mg PO HS 04/03/23 04/03/23 Previous Rx's Medication Instructions Recorded oxycodone-acetaminophen 5 mg-325 1 tab PO Q6H PRN pain #20 tabs / mg tablet (Percocet) Results & Data (ED) Vital Signs Vital Signs - 24 hr 09/28/24 20:17 09/28/24 20:20 09/28/24 20:36 Temperature 36.2 C L Temperature Source Temporal Artery Scan Pulse Rate 71 66 Pulse Rate from SpO2 Sensor Respiratory Rate 18 16 Respiratory Effort / Characteristics Non-Labored Spontaneous Respiratory Depth Normal Respiratory Pattern Regular Blood Pressure 200/102 H Blood Pressure Mean 134 Pulse Oximetry 97 96 Oxygen Delivery Method Room Air Room Air Room Air Sepsis Recent Fever Within 48 Hours No Sepsis New/Unexplained Change in Mental Status N/A Sepsis Action Taken by Nursing No Action Required 09/28/24 20:39 09/28/24 20:42 09/28/24 21:06 Temperature Temperature Source Pulse Rate 66 65 63 Pulse Rate from SpO2 Sensor 65 62 Respiratory Rate 18 13 Respiratory Effort / Characteristics Respiratory Depth Respiratory Pattern Blood Pressure 158/91 H 142/74 H Blood Pressure Mean 113 96 Pulse Oximetry 98 96 Oxygen Delivery Method Sepsis Recent Fever Within 48 Hours Sepsis New/Unexplained Change in Mental Status Sepsis Action Taken by Nursing 09/28/24 21:33 09/28/24 22:06 Temperature Temperature Source Pulse Rate 74 61 Pulse Rate from SpO2 Sensor 69 62 Respiratory Rate 17 12 Respiratory Effort / Characteristics Respiratory Depth Respiratory Pattern Blood Pressure 137/80 153/90 H Blood Pressure Mean 99 111 Pulse Oximetry 94 97 Oxygen Delivery Method Sepsis Recent Fever Within 48 Hours Sepsis New/Unexplained Change in Mental Status Sepsis Action Taken by Nursing Laboratory Data 09/28/24 20:33 09/28/24 20:33 Lab Results 09/28/24 Range/Units 20:33 WBC 6.67 (4.8-10.8) K/ul RBC 4.36 L (4.70-6.10) M/uL Hgb 14.6 (14.0-18.0) g/dl Hct 42.4 (42.0-52.0) % MCV 97.2 (80.0-100.0) fL MCH 33.5 (25.0-34.0) pg MCHC 34.4 (32.0-36.0) g/dL RDW Std Deviation 48.6 H (36.4-46.3) fL RDW Coeff of Bradley 13.5 (11.5-14.5) % Plt Count 141 (130-400) K/uL MPV 9.5 (9.4-12.4) fL Immature Gran % (Auto) 0.1 % Neut % (Auto) 55.5 % Lymph % (Auto) 31.0 % Mcdowell % (Auto) 9.0 % Eos % (Auto) 3.7 % Baso % (Auto) 0.7 % Neut # (Auto) 3.69 (1.40-6.50) K/uL Lymph # (Auto) 2.07 (1.20-3.40) K/uL Mcdowell # (Auto) 0.60 H (0.11-0.59) K/uL Eos # (Auto) 0.25 (0.00-0.50) K/uL Baso # (Auto) 0.05 (0.00-0.20) K/uL Immature Gran # (Auto) 0.01 (0.01-0.20) K/uL PT 10.9 (9.0-12.0) Seconds INR 1.0 (0.9-1.1) APTT 26 (21-31) Seconds PTT Ratio 1.0 Sodium 137 (136-145) mmol/L Potassium 4.2 (3.5-5.1) mmol/L Chloride 104 (98-107) mmol/L Carbon Dioxide 30 (21-32) mmol/L Anion Gap 3 (3-11) BUN 23 (6-23) mg/dl Creatinine 1.19 (0.6-1.4) mg/dl Est Cr Clr Drug Dosing 50.2 ml/min eGFR 60.23 BUN/Creatinine Ratio 19.3 (10-20) Glucose 101 H (70-99(Fasting)) mg/dl Calcium 9.6 (8.6-10.3) mg/dl Total Bilirubin 0.6 (0.2-1.0) mg/dl AST 19 (13-39) U/L ALT 19 (7-52) U/L Alkaline Phosphatase 61 (34-104) U/L Troponin I High Sens 6.9 (0-20) pg/ml Total Protein 7.0 (6.0-8.3) gm/dl Albumin 4.5 (3.4-5.0) gm/dl Globulin 2.5 (2.5-4.0) gm/dl Albumin/Globulin Ratio 1.8 (0.9-2) Administered Medications Discontinued Medications Aspirin (Aspirin 81 Mg Chew) 243 mg PO NOW STA Stop: 09/28/24 20:46 Last Admin: 09/28/24 21:01 Dose: 243 mg Documented By: LOUISE Imaging Data Radiologist's Impression: Chest X-Ray 09/28/24 20:20 Exam(s): XR CXR 1 VIEW EXAM: XR Chest, 1 View CLINICAL HISTORY: Chest pain, nonspecific. TECHNIQUE: Frontal view of the chest. COMPARISON: Portable chest single view 05/16/2022 FINDINGS: Lungs: Stable asymmetric elevation of the right hemidiaphragm. No focal airspace consolidation. The interstitial markings are stable. No radiographic evidence for florid CHF. Pleural space: Unremarkable. No pneumothorax. No large pleural effusion. Heart: Unremarkable. No cardiomegaly. Mediastinum: No significant abnormality identified. The trachea is midline. Similar tortuosity of the descending aorta. Bones/joints: Unremarkable. No acute fracture. IMPRESSION: No acute cardiopulmonary process or significant alteration from the prior examination. Electronically signed by: Pascual Win MD 09/28/24 22:52 PM Discharge Plan Visit Data Chief Complaint: Cardiac Assessment Stated Complaint: HIGH BLOOD PRESSURE,HEADACHE, PAIN LT SIDE ED Provider: Dimas Aquino Discharge Problem: Chest pain, HTN (hypertension) Forms Stand Alone Forms: My [facility] Prescriptions Prescriptions: No Action atorvastatin [Lipitor] 40 mg tablet 40 mg PO HS isosorbide mononitrate 30 mg tablet extended release 24 hr 30 mg PO QAM clopidogrel [Plavix] 75 mg tablet 75 mg PO HS valacyclovir [Valtrex] 500 mg tablet 500 mg PO QAM aspirin [Symone Low Dose Aspirin] 81 mg Tablet,Delayed Release (Dr/Ec) 162 mg PO HS pantoprazole [Protonix] 40 mg tablet,delayed release (DR/EC) 40 mg PO QAM nitroglycerin [Nitrostat] 0.4 mg Tablet, Sublingual 0.4 mg sublingual UD PRN (Reason: Chest Pain) Patient Comments: has not had to use Rx Instructions: As of 04/03/23 - Pt has medication at home but has never had to use it metoprolol succinate [Toprol XL] 25 mg tablet extended release 24 hr 12.5 mg PO HS furosemide 20 mg tablet 20 mg PO QAM oxycodone-acetaminophen [Percocet] 5-325 mg tablet 1 tab PO Q6H PRN (Reason: pain) Qty: 20 0RF Rx Instructions: As of 04/03/23 - Pt has medication at home but has never had to use it tamsulosin 0.4 mg capsule 0.4 mg PO HS Referrals Referrals: Olga Montague DO [Primary Care Provider] - Discharge Problem: HTN (hypertension) Qualifiers: Hypertension type: unspecified Qualified Code(s): I10 - Essential (primary) hypertension
[2024-09-28] MEDS: ASPIRIN 81 MG CHEW PO STA (21:01)
[2024-09-28 21:15] LABS: Albumin Globulin Ratio 1.8 (0.9-2); Albumin Level 4.5 gm/dl (3.4-5.0); BUN Creatinine Ratio 19.3 (10-20); Bilirubin,Total 0.6 mg/dl (0.2-1.0); Calcium 9.6 mg/dl (8.6-10.3); Creatinine Clr Calc Pharmacy 50.2 ml/min; Globulin 2.5 gm/dl (2.5-4.0); Potassium 4.2 mmol/L (3.5-5.1)
[2024-09-28 21:22] LABS: Troponin I High Sensitivity 6.9 pg/ml (0-20)
[2024-09-28 21:27] LABS: Basophils # (auto) 0.05 K/uL (0.00-0.20); Basophils % (auto) 0.7 %; Eosinophils # (auto) 0.25 K/uL (0.00-0.50); Eosinophils % (auto) 3.7 %; Hematocrit (blood only) 42.4 % (42.0-52.0); Hemoglobin 14.6 g/dl (14.0-18.0); Immature Granulocytes # (auto) 0.01 K/uL (0.01-0.20); Immature Granulocytes % (auto) 0.1 %; Lymphocytes # (auto) 2.07 K/uL (1.20-3.40); Mean Corpuscular Hemoglobin 33.5 pg (25.0-34.0); Mean Corpuscular Hgb Conc 34.4 g/dL (32.0-36.0); Mean Corpuscular Volume 97.2 fL (80.0-100.0); Mean Platelet Volume 9.5 fL (9.4-12.4); Neutrophils # (auto) 3.69 K/uL (1.40-6.50); Neutrophils % (auto) 55.5 %; Platelet Count 141 K/uL (130-400); RDW Coefficient of Variation 13.5 % (11.5-14.5); RDW Standard Deviation 48.6 fL (36.4-46.3); Red Blood Count 4.36 M/uL (4.70-6.10); White Blood Count 6.67 K/ul (4.8-10.8)
[2024-09-28 21:33] LABS: Partial Thromboplastin Time 26 Seconds (21-31); Prothrombin Time 10.9 Seconds (9.0-12.0)
--- NOTE | 2024-09-28 22:53 | XRay Report ---
Exam(s): XR CXR 1 VIEW EXAM: XR Chest, 1 View CLINICAL HISTORY: Chest pain, nonspecific. TECHNIQUE: Frontal view of the chest. COMPARISON: Portable chest single view 05/16/2022 FINDINGS: Lungs: Stable asymmetric elevation of the right hemidiaphragm. No focal airspace consolidation. The interstitial markings are stable. No radiographic evidence for florid CHF. Pleural space: Unremarkable. No pneumothorax. No large pleural effusion. Heart: Unremarkable. No cardiomegaly. Mediastinum: No significant abnormality identified. The trachea is midline. Similar tortuosity of the descending aorta. Bones/joints: Unremarkable. No acute fracture. IMPRESSION: No acute cardiopulmonary process or significant alteration from the prior examination. Electronically signed by: Pascual Win MD 09/28/24 22:52 PM
--- NOTE | 2024-09-29 02:28 | History & Physical Report ---
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 Currently pain is resolved. Denies any shortness of breath. Denies any nausea. No sweating. No dizziness. No blurred vision. No runny nose or sore throat. Hard of hearing. No fevers. No abdominal pain. Normal bowel and bladder movements. Resting comfortably and hemodynamically stable. Chest pain Initial workup unremarkable Currently chest pain-free Will follow serial enzymes and echo Monitor med/telemetry Consult cardiology in a.m.for further recommendations History of CAD status post stents On aspirin, Plavix, Lipitor, Imdur, metoprolol succinate Hypertension On Imdur and metoprolol succinate Will monitor Hyperlipidemia On statin BPH On Flomax GERD On Protonix Peripheral vascular disease On aspirin, Plavix and statin CKD stage III Presented creatinine 1.1 Will follow labs History of TIA On aspirin, Plavix and statin DVT prophylaxis SCDs Disposition Observation med/telemetry Full code. 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 Currently pain is resolved. Denies any shortness of breath. Denies any nausea. No sweating. No dizziness. No blurred vision. No runny nose or sore throat. Hard of hearing. No fevers. No abdominal pain. Normal bowel and bladder movements. Resting comfortably and hemodynamically stable. Past medical history. As mentioned above Past surgical history. Aspiration of thyroid cyst. Colonoscopy. Left heart catheterization. IR biopsy. Punch needle biopsy of prostate. Lumbar laminectomy. Repair of rotator cuff. Repair of biceps tendon rupture. Social history. . Quit smoking 1982. Smoked 0.5 pack a day for 10 years. Alcohol occasional. No drug use. Family history. Mother had dementia. Father had stroke. Allergies Allergy/AdvReac Type Severity Reaction Status Date / Time tramadol AdvReac Mild Urinary Verified 04/03/23 10:49 Blockage Home Medications Medication Instructions Recorded Confirmed Type aspirin 81 mg tablet,delayed 162 mg PO HS 01/27/21 09/28/24 History release (Symone Low Dose Aspirin) atorvastatin 40 mg tablet (Lipitor) 40 mg PO HS 01/27/21 09/28/24 History clopidogrel 75 mg tablet (Plavix) 75 mg PO HS 01/27/21 09/28/24 History isosorbide mononitrate 30 mg 30 mg PO QAM 01/27/21 09/28/24 History tablet,extended release 24 hr metoprolol succinate 25 mg 12.5 mg PO HS 01/27/21 09/28/24 History tablet,extended release 24 hr (Toprol XL) nitroglycerin 0.4 mg sublingual 0.4 mg sublingual UD PRN Chest Pain 01/27/21 History tablet (Nitrostat) pantoprazole 40 mg tablet,delayed 40 mg PO QAM 01/27/21 09/28/24 History release (Protonix) valacyclovir 500 mg tablet 500 mg PO QAM 01/27/21 09/28/24 History (Valtrex) tamsulosin 0.4 mg capsule 0.4 mg PO HS 04/03/23 09/28/24 History fluticasone propionate 50 2 spray intranasal QAM 09/28/24 09/28/24 History mcg/actuation nasal spray,suspension levocetirizine 5 mg tablet 2.5 mg PO HS 09/28/24 09/28/24 History Past Med/Surg History Problem List (Updated 09/28/24 @ 22:38 by Dimas Aquino M.D.) Chest pain (Acute) S/P trigger finger release Encounter for pre-operative examination Trigger middle finger of left hand CVA (cerebral vascular accident) ? CVA vs. TIA (2018, evaluated at [facility], no acute head/brain imaging findings- felt to be TIA per discharge summary) BPH (benign prostatic hyperplasia) (Chronic) GERD (gastroesophageal reflux disease) (Chronic) controlled, stable per pt HLD (hyperlipidemia) (Chronic) HTN (hypertension) (Chronic) stable, controlled per pt Medical History Ambulatory dysfunction BPH (benign prostatic hyperplasia) CAD (coronary artery disease) 2009: GEM to RCA 2011: Known residual occlusion occlusion of the ramus intermedius that was not amenable to PCI (2010) > treated medically 2012: Mild distal left main disease and 90% ramus intermedius stenosis with left to left collaterals unchanged compared to prior. 40% LAD stenosis noted and RCA stents patent > treated medically CKD (chronic kidney disease), stage III CVA (cerebral vascular accident) ? CVA vs. TIA (2018, evaluated at [facility], no acute head/brain imaging findings- felt to be TIA per discharge summary) Diastolic dysfunction Generalized weakness GERD (gastroesophageal reflux disease) controlled, stable per pt History of COVID-19 apr or early , home test, not hosp; mild symptoms>resolved. History of myocardial infarction 2008 > GEM to RCA Follows with [facility] cardiology HLD (hyperlipidemia) HTN (hypertension) stable, controlled per pt Hx of iron deficiency anemia fall 2021, had to have an iron infusion Neurogenic claudication due to lumbar spinal stenosis Trigger finger of left hand Surgical History H/O heart artery stent 2008, [facility] [place], x2 stents; f/u dr richards, [facility] cardio History of back surgery 07/2021, decompression and fusion History of cardiac cath 2009: GEM to RCA 2011: Known residual occlusion occlusion of the ramus intermedius that was not amenable to PCI (2010) > treated medically 2012: Mild distal left main disease and 90% ramus intermedius stenosis with left to left collaterals unchanged compared to prior. 40% LAD stenosis noted and RCA stents patent > treated medically Hx of bilateral cataract extraction Hx of colonoscopy Hx of laminectomy Hx of oral surgery dental implant surgery Hx of repair of right rotator cuff Family History Mother Dementia Father Stroke Social History Smoking Status: Former smoker Tobacco Type: Cigarettes Second Hand Exposure: Yes (growing up); Do You Dip or Chew Tobacco: No; Hx Alcohol Use: No Hx Substance Use: No Preferred Language: Chinese Communication Ability: Effective Theater Projectionist Required: No Beliefs That Will Affect Care: None marital status: Current Living Situation: Spouse Current Living Situation Comment: Lives with Feels Safe at Home: Yes Safety Concerns: Feels Safe At This Time Assistive Devices: Denture - Upper, Denture - Lower and Glasses Review of Systems Review of Systems: All systems reviewed & are unremarkable except as noted in HPI & below Physical Exam Physical Exam: General- Not in distress Head- atraumatic Eyes- PERRL. ENT- oropharynx clear Neck- supple, no JVD. Lungs- clear to auscultation no wheezing or crackles Heart- regular rate and rhythm; no murmur, no gallop. Abdomen- normal bowel sounds, soft, nontender, no distension Extremities- no pretibial edema, no erythema seen Neuro- alert, oriented PERRL, no facial palsy; no dysarthria; moves extremities Results & Data Results & Data Vital Signs (Past 12 Hours) Vital Signs Temp Pulse Pulse Resp BP BP Pulse Ox 09/29/24 00:16 56 L 09/28/24 23:49 67 14 149/91 H 97 09/28/24 22:06 61 12 153/90 H 97 09/28/24 21:33 74 17 137/80 94 09/28/24 21:06 63 13 142/74 H 96 09/28/24 20:42 65 18 158/91 H 98 09/28/24 20:39 66 09/28/24 20:36 66 16 96 09/28/24 20:20 09/28/24 20:17 36.2 C L 71 18 200/102 H 97 O2 Del Method 09/29/24 00:16 09/28/24 23:49 Room Air 09/28/24 22:06 09/28/24 21:33 09/28/24 21:06 09/28/24 20:42 09/28/24 20:39 09/28/24 20:36 Room Air 09/28/24 20:20 Room Air 09/28/24 20:17 Room Air Diagnostic Findings Laboratory Results WBC 6.67 K/ul (4.8-10.8) 09/28/24 20:33 RBC 4.36 M/uL (4.70-6.10) L 09/28/24 20:33 Hgb 14.6 g/dl (14.0-18.0) 09/28/24 20: Hct 42.4 % (42.0-52.0) 09/28/24 20: MCV 97.2 fL (80.0-100.0) 09/28/24 20: MCH 33.5 pg (25.0-34.0) 09/28/24 20: MCHC 34.4 g/dL (32.0-36.0) 09/28/24 20: RDW Std Deviation 48.6 fL (36.4-46.3) H 09/28/24: RDW Coeff of Bradley 13.5 % (11.5-14.5) 09/28/24 20: Plt Count 141 K/uL (130-400) 09/28/24 20: MPV 9.5 fL (9.4-12.4) 09/28/24 20: Immature Gran % (Auto) 0.1 % 09/28/24 20:33 Neut % (Auto) 55.5 % 09/28/24 20: Lymph % (Auto) 31.0 % 09/28/24 20:33 [place] % (Auto) 9.0 % 09/28/24 20: Eos % (Auto) 3.7 % 09/28/24 20:33 Baso % (Auto) 0.7 % 09/28/24 20:33 Neut # (Auto) 3.69 K/uL (1.40-6.50) 09/28/24 20: Lymph # (Auto) 2.07 K/uL (1.20-3.40) 09/28/24 20:33 [place] # (Auto) 0.60 K/uL (0.11-0.59) H 09/28/24 20: Eos # (Auto) 0.25 K/uL (0.00-0.50) 09/28/24 20:33 Baso # (Auto) 0.05 K/uL (0.00-0.20) 09/28/24 20:33 Immature Gran # (Auto) 0.01 K/uL (0.01-0.20) 09/28/24 20:33 PT 10.9 Seconds (9.0-12.0) 09/28/24 20:33 INR 1.0 (0.9-1.1) 09/28/24 20:33 APTT 26 Seconds (21-31) 09/28/24 20:33 PTT Ratio 1.0 09/28/24 20:33 Sodium 137 mmol/L (136-145) 09/28/24 20:33 Potassium 4.2 mmol/L (3.5-5.1) 09/28/24 20:33 Chloride 104 mmol/L (98-107) 09/28/24 20:33 Carbon Dioxide 30 mmol/L (21-32) 09/28/24 20:33 Anion Gap 3 (3-11) 09/28/24 20:33 BUN 23 mg/dl (6-23) 09/28/24 20:33 Creatinine 1.19 mg/dl (0.6-1.4) 09/28/24 20:33 Est Cr Clr Drug Dosing 50.2 ml/min 09/28/24 20:33 eGFR 60.23 09/28/24 20:33 BUN/Creatinine Ratio 19.3 (10-20) 09/28/24 20:33 Glucose 101 mg/dl (70-99(Fasting)) H 09/28/24 20:33 Calcium 9.6 mg/dl (8.6-10.3) 09/28/24 20:33 Total Bilirubin 0.6 mg/dl (0.2-1.0) 09/28/24 20:33 AST 19 U/L (13-39) 09/28/24 20:33 ALT 19 U/L (7-52) 09/28/24 20:33 Alkaline Phosphatase 61 U/L (34-104) 09/28/24 20:33 Troponin I High Sens 6.9 pg/ml (0-20) 09/28/24 20:33 Total Protein 7.0 gm/dl (6.0-8.3) 09/28/24 20:33 Albumin 4.5 gm/dl (3.4-5.0) 09/28/24 20:33 Globulin 2.5 gm/dl (2.5-4.0) 09/28/24 20:33 Albumin/Globulin Ratio 1.8 (0.9-2) 09/28/24 20:33 Impressions Chest X-Ray 09/28/24 20:20 Exam(s): XR CXR 1 VIEW EXAM: XR Chest, 1 View CLINICAL HISTORY: Chest pain, nonspecific. TECHNIQUE: Frontal view of the chest. COMPARISON: Portable chest single view 05/16/2022 FINDINGS: Lungs: Stable asymmetric elevation of the right hemidiaphragm. No focal airspace consolidation. The interstitial markings are stable. No radiographic evidence for florid CHF. Pleural space: Unremarkable. No pneumothorax. No large pleural effusion. Heart: Unremarkable. No cardiomegaly. Mediastinum: No significant abnormality identified. The trachea is midline. Similar tortuosity of the descending aorta. Bones/joints: Unremarkable. No acute fracture. IMPRESSION: No acute cardiopulmonary process or significant alteration from the prior examination. Electronically signed by: Pascual Win MD 09/28/24 22:52 PM ECG Additional Comments: ECG. Sinus rhythm with first-degree AV block rate of 67. Left axis deviation. No significant change was found. Code Status & VTE Plan VTE Prophylaxis Plan VTE Prophylaxis will be ordered: Yes
[2024-09-29] MEDS ORDERED: NITROGLYCERIN SL 0.4 MG/TAB TAB SL PRN (03:24)
[2024-09-29] MEDS ORDERED: POLYETHYLENE (MIRALAX) 17 GM PACK PO PRN (03:24)
[2024-09-29] MEDS ORDERED: ACETAMINOPHEN 325 MG TAB PO PRN (03:24)
--- OUTSIDE RECORDS SUMMARY | 2024-09-29 06:19 | External Medical Summary | Summary of Care ---
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 HX SK's.Multiple concerns today. Encounter Details Date Type Department Care Team (Late st Contact Info) Description 09/22/2024 10:40 AM EST Office Visit Dermatology, Jennyfer Campos [address] [facility] [address] [id number] Radha Montano PA-C [address] [id number] Neoplasm of uncertain behavior of skin*; AK (actinic keratosis); Inflamed seborrheic keratosis; Multiple nevi; Seborrheic keratosis; History of atypical nevus; History of nonmelanoma skin cancer; Skin exam, screening for cancer Allergies Active Allergy Reactions Criticality Noted Date Comments Tramadol Low 04/10/2021 Urinary retention Other reaction(s): Urinary Blockage documented as of this encounter (statuses as of 09/22/2024) Medications aspirin enteric coated 81 MG TBEC Take 1 Tablet by mouth at bedtime. Take 2 tabs daily 100 Tab 3 01/31/20 18 Active Levocetirizine Dihydrochloride 5 MG Oral TabletIndications:D ysfunction of both eustachian tubes Take by mouth 0.5 Tablets before bedtime. 45 Tablet 01/19/20 22 Active Nitroglycerin 0.4 MG Sublingual Tablet Sublingual (Nitrostat)Indicati ons:Chest pain, unspecified type 1 tablet every 5 minutes, up to 3 tablets in 15 minutes for chest pain 100 Tablet 4 04/08/20 23 Active Fluticasone Propionate 50 MCG/ACT Nasal Suspension (Flonase)Indication s:Dysfunction of both eustachian tubes Administer 2 Sprays into each nostril in the morning. 16 g 3 07/26/20 23 Active Atorvastatin Calcium 40 MG Oral Tablet (Lipitor)Indication s:Dyslipidemia, goal LDL below 70 TAKE 1 TABLET BY MOUTH EVERYDAY AT BEDTIME 90 Tablet 3 10/22/19 24 Active Metoprolol Succinate ER 25 MG Oral Tablet Extended Release 24 Hour (toPROL XL)Indications:HTN, goal below 130/80 TAKE 1/2 TABLET BY MOUTH DAILY 45 Tablet 3 11/29/19 24 Active Ergocalciferol 1.25 MG (39824 UT) Oral Capsule (Vitamin D2(Drisdol))Indicat ions:Vitamin D deficiency Take 1 Capsule by mouth once a week. 12 Capsule 12/02/19 24 Active Isosorbide Mononitrate ER 30 MG Oral Tablet Extended Release 24 Hour (Imdur)Indications: ASCVD (arteriosclerotic cardiovascular disease) TAKE 1 TABLET BY MOUTH EVERY DAY 90 Tablet 3 01/23/20 24 Active Pantoprazole Sodium 40 MG Oral Tablet Delayed Release (Protonix)Indicatio ns:Gastroesophageal reflux disease without esophagitis TAKE 1 TABLET BY MOUTH EVERY DAY 90 Tablet 2 06/14/20 24 Active Tamsulosin HCl 0.4 MG Oral Capsule (Flomax)Indications :Retention of urine TAKE 1 CAPSULE BY MOUTH EVERY DAY 90 Capsule 1 08/31/19 25 Active Clopidogrel Bisulfate 75 MG Oral Tablet (pLAVix) TAKE 1 TABLET BY MOUTH EVERY DAY 90 Tablet 1 08/31/19 25 Active valACYclovir HCl 500 MG Oral Tablet (Valtrex)Indication s:Recurrent genital herpes TAKE 1 TABLET BY MOUTH EVERY DAY 90 Tablet 1 08/31/19 25 Active documented as of this encounter (statuses as of 09/22/2024) Active Problems Problem Noted Date Diagnosed Date Atherosclerosis of aorta 04/08/2023 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 04/08/20 Multinodular thyroid 04/08/2023 Other atherosclerosis of lio johana arteries of extremities, bilateral legs 05/28/2022 Chronic kidney disease, stage 3a 05/07/2022 Overview: Per CKD protocol Iron deficiency anemia 04/13/2022 Benign hypertension with stage 3a chronic kidney disease 04/09/2022 Overview: Per CKD protocol Hx of actinic keratosis 11/30/2021 Spinal stenosis of lumbar re gion with neurogenic claudication 05/02/2021 Gastro-esophageal reflux disease without esophag itis 08/26/2019 Personal history of TIA (transient ischemic madisyn ck) 07/16/2019 Hx of nonmelanoma skin cancer 10/14/2017 Overview (09/14/2022): 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, Nov, 2010 Carotid stenosis, non-symptomatic 06/02/2010 Dyslipidemia, goal LDL below 70 07/11/2009 Overview (07/11/2009): Per Lipid Taxonomy. S/P primary angioplasty with coronary stent 10/2008 Overview (09/03/2008): PTCA/GEM of mid/distal RCA with [place] 3.5X30 and 3.5X15 mm stents. History of colonic polyps 09/20/2006 documented as of this encounter (statuses as of 09/22/2024) Resolved Problems Problem Noted Date Diagnosed Date Resolved Date Gastroesophageal reflux disease 04/08/2023 07/02/2023 Nontoxic goiter, unspecified 12/22/2021 05/23/2022 Other atherosclerosis of lio johana arteries of extremities, bilateral legs 08/01/2020 12/22/2021 Carotid stenosis, non-sympto matic, unspecified laterality 08/01/2020 05/23/2022 Other recurrent depressive disorders 07/24/2019 12/22/2021 Other recurrent depressive disorders 07/24/2019 08/26/2019 Kidney disease, chronic, sta ge III (GFR 30-59 ml/min) 05/05/2018 06/13/2018 Overview: Per CKD protocol #1 TIA (transient ischemic attack) 01/24/2018 07/16/2019 Kidney disease, chronic, sta ge III (GFR 30-59 ml/min) 10/11/2014 05/09/2016 Overview: Per CKD protocol #1 Benign hypertension with CKD (chronic kidney disease) stage III 08/19/2012 04/12/2022 Overview: Per CKD protocol [employer] Other*[id number] 04/30/2012 09/04/2016 Overview (04/30/2012): Study Title: Genomic Markers for Patients with Cardiovascular Disease Project # [id number] [place] Specialist: Radha Hernández MD [phone] Hyperpotassemia 08/17/2009 04/18/2017 CHR ISCHEMIC HRT DIS NEC 09/10/2008 Chest pain 08/31/2008 03/12/2012 Special screening for malign ant neoplasms, colon 05/02/2006 04/09/2017 Overview (05/02/2006): 2003- ? Polyps [facility] ADVANCE DIRECTIVE INFORMATION 02/28/2006 06/01/2024 Overview (02/28/2006): Yes, Patient instructed to provide copy of advance directive for provider to review and to be scanned into Electronic Medical Record ELEVATED PROSTATE SPECIFIC ANTIGEN 02/25/2006 10/12/2014 Overview (09/01/2008): Negative TRUS/Bx 07/01 PSA(ng/mL) Farida Dt/Tm Resulted Value Status 02/25/06 11:52A 02/25/06 10.24* FINAL 07/03/04 3:48P 07/03/04 5.02* FINAL 05/12/04 12:53P 05/12/04 4.72* FINAL 07/10/01 9:31A 07/10/01 3.18 FINAL Urology consult 03/03: TRUS/ prostate biopsy- bx negative x 13 samples Nocturia 01/09/2019 Mixed dyslipidemia 9 Overview (07/11/2009): Per Lipid Taxonomy. documented as of this encounter (statuses as of 09/22/2024) Immunizations Name Administration Dates Next Due COVID-19 mRNA, LNP-s, No Pre serve, 2-Dose Series (Jobzippers) 05/30/2021,11/26/2020,11/05/2020 COVID-19, LNP-s, No Preserve , Antoni-sucrose, Ages 12+ (Jobzippers) 11/08/2021 Influenza, Whole Virus 05/02/2006,05/12/2002 Pneumococcal Conjugate Vacc, 13 Valent (Prevnar) 08/30/2014 Pneumococcal Polysaccharide PPV23 (Pneumovax) 12/20/2010,07/01/2006 Season Influenza, Quad, PF, Adjuvanted, 65+ Yrs, IM (FLUAD) 04/15/2020 Seasonal Influenza Vac., MDV , IM, 0.5 mL (Fluzone) 05/18/2014,03/29/2011,05/04/2010,05/12,06/09/2007 Seasonal Influenza, High Dos e, Trivalent, PF, IM (Fluzone HD) 05/18/2024 Seasonal Influenza, PF, 6 M & above, IM , (FluLaval or Fluzone) 05/15/2018 Seasonal Influenza, Quadriva lent Hd (Fluzone Hd) 04/08/2023,03/29/2022,04/10/2021 Seasonal Influenza, Quadriva lent, No Preserve, IM 04/09/2017,05/07/2016,05/09/2015 Seasonal Influenza, Trivalen t, Adjuvanted, 65+ YRS, PF, (Fluad) 05/15/2019 TD - Tetanus/Diptheria (ADULT) 12/01/1999 TD, Preservative Free 01/04/2011 TDAP (age 10 and older)(Boostrix) 01/20/2014 Varicella Zoster Vaccine (Adult) 01/20/2014 Zoster Vaccine Recombinant (Shingrix) 08/02/2020 ,08/26/2019 documented as of this encounter Social History Tobacco Use Types Packs/Day Years Used Date Smoking Tobacco: Former Cigarettes 0.5 10 0 07/29/1972 - 07/29/1982 Smokeless Tobacco: Never Alcohol Use Standard Drinks/Week Comments Yes 11.7 (1 standard drink = 0.6 oz pure alcohol) occ PHQ-2 Answer Date Recorded PHQ-2 Score 0 12/12/2019 Hunger Vital Sign Answer Date Recorded Within the past 12 months, y ou worried that your food would run out before you got the money to buy more. Never true 02/03/20 23 Within the past 12 months, t he food you bought just didn't last and you didn't have money to get more. Never true 02/02/2023 Childcare Answer Date Recorded Do you feel overwhelmed with taking care of a child, family member or friend? No 02/02/2023 Does your family need help f inding childcare? (Household - for ages 0-17 years) Not on file 02/02/2023 Clothing Answer Date Recorded Have you been unable to get clothing when it was really needed? No 02/02/2023 Is your family able to get c lothes or diapers when needed? (Household - for ages 0-17 years) Not on file 02/02/2023 Personal Safety Answer Date Recorded Do you feel unsafe or have concerns for your saf ety? No 02/02/2023 Do you have concerns for you r family's safety? (Household - for ages 0-17 years) Not on file 02/02/2023 Utilities Answer Date Recorded Do you have trouble paying y our heating, water, or electric bill? No 02/02/2023 Is your family able to pay t he heat, water, or electric bill? (Household - for ages 0-17 years) Not on file 02/02/2023 Does your family have access to good internet? (Household - for ages 0-17 years) Not on file 02/02/2023 Employment Status Answer Date Recorded Are you unemployed or without regular income? No 02/02/2023 Does the household have a [facility] source of income? (Household - for ages 0-17 years) Not on file 02/02/2023 Social Connections Answer Date Recorded How often do you feel lonely or isolated from th ose around you? Never 02/02/2023 Financial Resource Strain Answer Date R ecorded Do you have any trouble payi ng for your medications, or do you think you might in the future? No 02/02/2023 Does your family have troubl e paying for medicine? (Household - for ages 0-17 years) Not on file 02/02/2023 Transportation Needs Answer Date Record ed READ ONLY Do you have troubl e getting a ride to medical visits or work? Never True 02/02/2023 Does your family have a hard time getting a ride to doctors visits? (Household - for ages 0-17 years) Not on file 02/02/2023 Has lack of transportation k ept you from medical appointments, meetings, work, or from getting things needed for daily living? Check all that apply. (Adult - for ages 18 years and over) Not on file 02/02/2023 Do you (or your family) have trouble finding or paying for a ride (transportation)? (Household - for ages 0-17 years) Not on file 02/02/2023 Housing Stability Answer Date Recorded Do you currently live in a s helter or have no steady place to sleep at night? No 02/02/2023 READ ONLY Do you think you a re at risk of becoming homeless? No 02/02/2023 Does your family worry about paying for your home or becoming homeless? (Household - for ages 0-17 years) Not on file 0 02/02/2023 Are you homeless or worried that you might be in the future? (Adult - for ages 18 years and over) Not on file Are you (or your family) regulo eless or worried that you might be in the future? (Household - for ages 0-17 years) Not on file Food Insecurity Answer Date Recorded Do you need food for this week? No 02/02/2023 Are you able to get enough f ood for your family? (Household - for ages 0-17 years) Not on file 02/02/2023 Does your family need food t his week? (Household - for ages 0-17 years) Not on file 02/02/2023 Do you always have enough fo od for your family? 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 HX SK's. Multiple concerns today. HPI: Med Kramer is a 84 year old male who is an established patient presenting for FBSE. Last dermatology clinic visit: 09/17/23. Numerous areas of concern today. - Itchy spots on back and at L waistline. - Scaly spots on R ear, L voodoo and L cheek - Growth L medial canthus region that is bothersome. 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 Take 2 tabs daily 100 Tab 3 Levocetirizine Dihydrochloride 5 MG Oral Tablet Take by mouth 0.5 Tablets before bedtime. 45 Tablet0 Nitroglycerin 0.4 MG Sublingual Tablet Sublingual (Nitrostat) 1 tablet every 5 minutes, up to 3 tablets in 15 minutes for chest pain 100 Tablet 4 Fluticasone Propionate 50 MCG/ACT Nasal Suspension (Flonase) Administer 2 Sprays into each nostril in the morning. 16 g 3 Atorvastatin Calcium 40 MG Oral Tablet (Lipitor) TAKE 1 TABLET BY MOUTH EVERYDAY AT BEDTIME 90 Tablet 3 Metoprolol Succinate ER 25 MG Oral Tablet Extended Release 24 Hour (toPROL XL) TAKE 1/2 TABLET BY MOUTH DAILY 45 Tablet 3 Ergocalciferol 1.25 MG (28287 UT) Oral Capsule (Vitamin D2(Drisdol)) Take 1 Capsule by mouth once aweek. 12 Capsule 0 Isosorbide Mononitrate ER 30 MG Oral Tablet Extended Release 24 Hour (Imdur) TAKE 1 TABLET BY MOUTHEVERY DAY 90 Tablet 3 Pantoprazole Sodium 40 MG Oral Tablet Delayed Release (Protonix) TAKE 1 TABLET BY MOUTH EVERY DAY 90 Tablet 2 Tamsulosin HCl 0.4 MG Oral Capsule (Flomax) TAKE 1 CAPSULE BY MOUTH EVERY DAY 90 Capsule 1 Clopidogrel Bisulfate 75 MG Oral Tablet (pLAVix) TAKE 1 TABLET BY MOUTH EVERY DAY 90 Tablet 1 valACYclovir HCl 500 MG Oral Tablet (Valtrex) TAKE 1 TABLET BY MOUTH EVERY DAY 90 Tablet 1 No current facility-administered medications for this visit. ALLERG Y: Tramadol OBJECTIVE: GEN: Healthy, alert, no distress, appears oriented, pleasant, and cooperative. PSYCH: Appropriate mood and affect, alert SKIN: Detailed exam of scalp, hair, face including lids and lips, ears, neck, chest, back, abdomen,buttocks, deferred groin exam, bilateral upper extremities and bilateral lower extremities including the nails and digits was completed and are within normal limits with the following exceptions: 1A. L medial canthus region, shave- 2mm skin colored pedunculated papule DDx: SK vs verruca vulgaris 2. R frontal scalp, R ear helix, L voodoo and L cheek- rough, scaly, thin whitish to pink papule(s) 3. Back and L lateral waistline-keene/brown hyperkeratotic stuck on appearing waxy papules. 4. Face, chest, abdomen, back, upper and lower extremities- multiple scattered evenly pigmented tanto brown macules and papules without significant irregularity 5. Additionally, at the trunk and extremities are several scattered keene/brown hyperkeratotic stuck on appearing waxy papules. 6. Well healed scar(s) at primary site(s) without evidence of recurrence. ASSESSMENT/PLAN: Neoplasm of uncertain behavior of skin (Primary) - SURGICAL PATHOLOGY A. L medial canthus region, shave- 2mm skin colored pedunculated papule DDx: SK vs verruca vulgaris -Scissor removal of the lesion(s) noted above to remove and confirm diagnosis. The procedure, risksincluding but not limited to; (scarring, bleeding, infection, pain, and bruising), benefits, alternatives and expected outcomes were discussed with the patient, and obtained verbal consent from pt. Time out called. Patient identified, procedure verified, site identified and verified. Patient and staff present in agreement. Area prepped with alcohol and anesthetized using lidocaine. Scissor removal of the lesion(s) performed for symptom relief. 20% AlCl and bandaging applied. Specimen sent to pathology. Patient instructed in routine post-op care and given wound care pamphlet. 2. Actinic Keratosis(-es) (Quantity 4, Location as noted in exam) - DERM EXAM - DERM (IMAGES ONLY, NO REPORT) -Educated on premalignant potential and small risk of developing into a SCC -Discussed treatment options including cryotherapy. Patient prefers cryotherapy. -Cryosurgery procedure, risks and benefits explained to the patient. Specifically, side effects including blistering, hyperpigmentation, hypopigmentation, scar or pain at procedure site was discussedand patient verbalized understanding. Consent was obtained. Patient, site and procedure verified. Cryotherapy was performed with Liquid Nitrogen via cryo spray unit to 4 lesions. Location noted in physical exam. Post op course explained. -Counseled on importance of sun protection with sunscreen of at least SPF 30 and protective clothing. -Discussed importance of yearly skin checks and to contact our office if notices any new or changesskin lesion. 3. Inflamed seborrheic keratosis(-es) - Treated with cryotherapy due to symptoms and clinical evidence of inflammation. - Cryotherapy was recommended for treatment today which patient was agreeable to. The risks, benefits, indications, alternatives, and complications were discussed, and informed consent was obtained. Specifically, the risks of permanent scar, loss or darkening of skin color, blister and recurrence of lesion were discussed. A total of 5 lesion(s) were treated with cryotherapy. The patient toleratedthe procedure well without complications. Wound care instructions were given. 4. Multiple benign-appearing nevi and lentigines - DERM EXAM - DERM (IMAGES ONLY, NO REPORT) - No features concerning for malignancy on exam today. - Continue to monitor with monthly self-skin exams. - Patient counseled on ABCDEs of melanoma. - Discussed and emphasized importance of sun protection including broadband, water-resistant, SPF 30 or greater sunscreen with reapplication q2h or after swimming/excessive perspiration and sun protective attire (wide-brimmed hats, long pants/shirt, sunglasses). - Patient to contact physician for any new or changing lesions or other concerns. 5. Seborrheic keratosis(-es) -Reassured of the benign nature of lesion -Discussed with patient that they may get more of these lesions in the future -If there are any lesions that become irritated, bleed, or painful to return to clinic for evaluation -No current treatment necessary at this time 6. History of nonmelanoma skin cancer - DERM EXAM - DERM (IMAGES ONLY, NO REPORT) -No evidence of recurrence. 7. Skin exam, screening for cancer - DERM EXAM - DERM (IMAGES ONLY, NO REPORT) Patient with today. Follow-up: pending path results, otherwise 1 year Photos taken, patient consented to photos taken. Contact patient via [employer] with results Applicable photos (if any) and chart reviewed by Dr. Krishna Pena. The patient was encouraged to contact me with any further questions or concerns. Radha Montano PA-C 09/22/24 * Pascual Pena MD - 09/22/2024 10:40 AM EST I have reviewed the relevant notes and photographs taken by Radha Montano PA-C. I have reviewed and agree with the assessment and plan. 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 HX SK's. Multiple concerns today. 09/17/2023 (in office), Visit date not found (telemedicine) documented in this encounter Plan of Treatment Upcoming Encounters Date Type Department Care Team (Late st Contact Info) Description 09/23/2025 10:40 AM EST Office Visit Dermatology, Jennyfer Campos [address] [address] Radha Montano PA-C [address] [address] Pending Results Name Type Priority Associated Diagnoses Date /Time SURGICAL PATHOLOGY Pathology Routine Neoplasm of uncertain behavior of skin 09/22/2024 11:24 AM EST Health Maintenance Due Date Last Done Comments Adult Wellness Visit 2006 Depression Screening 12/11/2020 12/12/2019, 08/09/2017 (Discussed) DTap/Tdap Vaccines (2 - Td or Tdap) 01/21/2024 01/20/2014, 01/04/2011, 12/01/1999 COVID-19 Vaccine ( season) 2024 11/08/2021, 05/30/2021, 11/26/2020, Additional history exists GFR 05/23/2024 11/22/2023, 11/2023, 07/17/2022, Additional history exists Albumin/Creatinine Ratio 08/02/2024 024, 12/22/2021, 11/23/2021, Additional history exists CKD HGB USE SMARTSET 90308 11/21/202411/21, 11/22/2023, 08/02/2023, Additional history exists CKD PHOS USE SMARTSET 53832 11/21/202410/28, 04/21/2021, 01/19/2020, Additional history exists Pneumococcal Vaccine: 50+ Years Completed 08/30/2014, 12/20/2010, 07/01/2006 Zoster Vaccines Completed 08/02/2020, 07/30, 01/20/2014 Influenza Vaccine (FLU shot) Completed , 05/18/2024, 04/08/2023, Additional history exists HPV (Gardasil) Vaccine Aged Out No lo nger eligible based on patient's age to complete this topic Hepatitis B Vaccine Aged Out No longe r eligible based on patient's age to complete this topic MENINGOCOCCAL (MENACTRA/MENVEO) Aged Out No longer eligible based on patient's age to complete this topic Meningitis B Vaccine (Bexsero/Trumemba) Aged Out No longer eligible based on patient's age to complete this topic documented as of this encounter Medical Devices Not on filedocumented as of this encounter Procedures Procedure Name Priority Date/Time Associated Diagnosis Comments DERM EXAM - DERM (IMAGES ONLY, NO REPORT) Routine 09/22/2024 10:51 AM EST Skin exam, screening for cancer documented in this encounter Results * DERM EXAM - DERM (IMAGES ONLY, NO REPORT) (09/22/2024 10:51 AM EST) Narrative Scheduling, Silent - 09/22/2024 10:51 AM EST This is an imaging study not interpreted or resulted by a [employer] or [employer] contracted radiologist. us Radha Montano PA-C RADIOLOGY ([facility]) Final Result documented in this encounter Visit Diagnoses Diagnosis Neoplasm of uncertain behavior of skin- Primary AK (actinic keratosis) Actinic keratosis Inflamed seborrheic keratosis Multiple nevi Benign neoplasm of skin, site unspecified Seborrheic keratosis Other seborrheic keratosis History of atypical nevus Personal history of diseases of skin and subcutaneous tissue History of nonmelanoma skin cancer Personal history of other malignant neoplasm of skin Skin exam, screening for cancer Screening for malignant neoplasm of the skin documented in this encounter Advance Directives * Full Code (Latest Code Status on File) Date Activated Date Inactivated Comments 02/03/2013 7:23 PM 02/06/2013 3:06 PM This order re flects the patients wishes and were consensually agreed upon. * Full Code Date Activated Date Inactivated Comments 08/31/2008 7:01 PM 09/03/2008 8:18 PM Care Teams Decorating And Assembly Supervisor Relationship Specialty Start Date End Date Olga Montague DO [address] [place] [address] PCP - General Family Medicine 04/27/16 documented as of this encounter
--- OUTSIDE RECORDS SUMMARY | 2024-09-29 06:19 | External Medical Summary | Summary of Care ---
Author Name Unknown Organization [facility] Address [address] [place] [address] Phone [phone] Care Team Providers Care Slab Miller Operator Name Role Phone Leia Montague DO Primary Care Provider Reason for Visit * Reason Comments eRx-Medication Refill Encounter Details Date Type Department Care Team (Late st Contact Info) Description 08/29/2024 Refill Family Practice [facility] [address] [facility] [place] [address] Leia Montague DO [address] [facility] [place] [address] Retention of urine; Recurrent genital herpes Allergies Active Allergy Reactions Criticality Noted Date Comments Tramadol Low 04/10/2021 Urinary retention Other reaction(s): Urinary Blockage documented as of this encounter (statuses as of 08/31/2024) Medications aspirin enteric coated 81 MG TBEC Take 1 Tablet by mouth at bedtime. Take 2 tabs daily 100 Tab 3 018 Active Levocetirizine Dihydrochloride 5 MG Oral TabletIndications: Dysfunction of both eustachian tubes Take by mouth 0.5 Tablets before bedtime. 45 Tablet 022 Active Additional Information Patient not taking.Reported on 12/02/2023 Nitroglycerin 0.4 MG Sublingual Tablet Sublingual (Nitrostat)Indicat ions:Chest pain, unspecified type 1 tablet every 5 minutes, up to 3 tablets in 15 minutes for chest pain 100 Tablet 4 023 Active Additional Information Patient not taking.Reported on 11/22/2023 Fluticasone Propionate 50 MCG/ACT Nasal Suspension (Flonase)Indicatio ns:Dysfunction of both eustachian tubes Administer 2 Sprays into each nostril in the morning. 16 g 3 023 Active Additional Information Patient not taking.Reported on 11/22/2023 Atorvastatin Calcium 40 MG Oral Tablet (Lipitor)Indicatio ns:Dyslipidemia, goal LDL below 70 TAKE 1 TABLET BY MOUTH EVERYDAY AT BEDTIME 90 Tablet 3 024 Active Metoprolol Succinate ER 25 MG Oral Tablet Extended Release 24 Hour (toPROL XL)Indications:HTN , goal below 130/80 TAKE 1/2 TABLET BY MOUTH DAILY 45 Tablet 3 024 Active Ergocalciferol 1.25 MG (43201 UT) Oral Capsule (Vitamin D2(Drisdol))Indica tions:Vitamin D deficiency Take 1 Capsule by mouth once a week. 12 Capsule 024 Active Isosorbide Mononitrate ER 30 MG Oral Tablet Extended Release 24 Hour (Imdur)Indications :ASCVD (arteriosclerotic cardiovascular disease) TAKE 1 TABLET BY MOUTH EVERY DAY 90 Tablet 3 024 Active Pantoprazole Sodium 40 MG Oral Tablet Delayed Release (Protonix)Indicati ons:Gastroesophage al reflux disease without esophagitis TAKE 1 TABLET BY MOUTH EVERY DAY 90 Tablet 2 024 Active Tamsulosin HCl 0.4 MG Oral Capsule (Flomax)Indication s:Retention of urine TAKE 1 CAPSULE BY MOUTH EVERY DAY 90 Capsule 1 025 Active Clopidogrel Bisulfate 75 MG Oral Tablet (pLAVix) TAKE 1 TABLET BY MOUTH EVERY DAY 90 Tablet 1 025 Active valACYclovir HCl 500 MG Oral Tablet (Valtrex)Indicatio ns:Recurrent genital herpes TAKE 1 TABLET BY MOUTH EVERY DAY 90 Tablet 1 025 Active Tamsulosin HCl 0.4 MG Oral Capsule (Flomax)Indication s:Retention of urine TAKE 1 CAPSULE BY MOUTH EVERY DAY 90 Capsule 3 024 2024 Discontinued Clopidogrel Bisulfate 75 MG Oral Tablet (pLAVix) TAKE 1 TABLET BY MOUTH EVERY DAY 90 Tablet 2 024 2024 Discontinued valACYclovir HCl 500 MG Oral Tablet (Valtrex)Indicatio ns:Recurrent genital herpes TAKE 1 TABLET BY MOUTH EVERY DAY 90 Tablet 2 024 2024 Discontinued documented as of this encounter (statuses as of 08/31/2024) Active Problems Problem Noted Date Diagnosed Date Atherosclerosis of aorta 04/08/2023 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 S/P primary angioplasty with coronary stent 10/2008 Overview (09/03/2008): PTCA/GEM of mid/distal RCA with [place] 3.5X30 and 3.5X15 mm stents. History of colonic polyps 09/20/2006 documented as of this encounter (statuses as of 08/31/2024) Resolved Problems Problem Noted Date Diagnosed Date [...] Overview: Per CKD protocol [employer] Other*[id number] 04/30/2012 09/04/2016 Overview (04/30/2012): Study Title: [employer]omic Markers for Patients with Cardiovascular Disease Project # [id number] Production Pattern Maker: Radha Hernández MD [phone] Hyperpotassemia 08/17/2009 04/18/2017 CHR ISCHEMIC HRT DIS NEC 09/10/2008 Chest pain 08/31/2008 03/12/2012 Special screening for malign ant neoplasms, colon 05/02/2006 04/09/2017 Overview (05/02/2006): 2003- ? Polyps [facility] ADVANCE DIRECTIVE INFORMATION 02/28/2006 06/01/2024 Overview (02/28/2006): [...] as of this encounter (statuses as of 08/31/2024) Immunizations Name Administration Dates Next Due COVID-19 mRNA, LNP-s, No Pre serve, 2-Dose Series (kabuku) 05/30/2021,11/26/2020,11/05/2020 COVID-19, LNP-s, No Preserve , Antoni-sucrose, Ages 12+ (Pfizer) 11/08/2021 Influenza, Whole Virus 05/02/2006 Pneumococcal Conjugate Vacc, 13 Valent (Prevnar) 08/30/2014 [...] t, Adjuvanted, 65+ YRS, PF, (Fluad) 05/15/2019 TD, Preservative Free 01/04/2011 TDAP (age 10 [...] y our heating, water, or electric bill? (Adult - for ages 18 years and over) Not on file 02/03/2024 Is your family able to pay t he heat, water, or electric bill? (Household - for ages 0-17 years) Not on file 02/03/2024 Does your family have access to good internet? (Household - for ages 0-17 years) Not on file 02/03/2024 Employment Status Answer Date Recorded Are you unemployed or without regular income? No 02/02/2023 Does the household have a re gular source of income? (Household - for ages 0-17 years) Not on file 02/02/2023 Social Connections Answer Date Recorded How often do you feel lonely or isolated from those around you? 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 file Not on file Not on file documented as of this encounter Miscellaneous Notes * Telephone Encounter - Susie Resendez, [facility] - 08/31/2024 8:57 AM ESTSigned Prescriptions: Disp Refills Tamsulosin HCl 0.4 MG Oral Capsule (Flomax)90 Cap*1 Sig: TAKE 1CAPSULE BY MOUTH EVERY DAYAuthorizing Provider: LEIA MONTAGUE User: SUSIE RESENDEZ Clopidogrel Bisulfate 75 MG Oral Tablet (p*90 Tab*1 Sig: TAKE 1 TABLET BY MOUTH EVERY DAYAuthorizing Provider: LEIA MONTAGUE User: SUSIE RESENDEZ valACYclovir HCl 500 MG Oral Tablet (Valtr*90 Tab*1 Sig: TAKE 1 TABLET BY MOUTH EVERY DAYAuthorizing Provider: LEIA MONTAGUE User: SUSIE RESENDEZ documented in this encounter Plan of Treatment Upcoming Encounters Date Type Department Care Team (Late st Contact Info) Description 09/22/2024 10:40 AM EST Office Visit Dermatology, [facility] [address] [place] [address] Radha Montano PA-C [address] [place] [address] [address] Health Maintenance Due Date Last Done Comments Adult Wellness Visit 2006 Depression Screening 12/11/2020 12/12/2019, 08/09/2017 (Discussed) DTap/Tdap Vaccines (2 - Td or Tdap) 01/21/2024 01/20/2014, 01/04/2011, 12/01/1999 COVID-19 Vaccine ( season) 2024 11/08/2021, 05/30/2021, 11/26/2020, Additional history exists GFR 05/23/2024 11/22/2023, 11/2023, 07/17/2022, Additional history exists Albumin/Creatinine Ratio 08/02/2024 024, 12/22/2021, 11/23/2021, Additional history exists CKD HGB USE SMARTSET 45110 11/21/202411/21, 11/22/2023, 08/02/2023, Additional history exists CKD PHOS USE SMARTSET 37493 11/21/202410/28, 04/21/2021, 01/19/2020, Additional history exists Pneumococcal [...] Not on filedocumented as of this encounter Visit Diagnoses Diagnosis Retention of urine Retention of urine, unspecified Recurrent genital herpes Genital herpes, unspecified documented in this encounter Advance Directives * Full Code (Latest Code Status on File) Date Activated Date Inactivated Comments 02/03/2013 7:23 PM 02/06/2013 3:06 PM This order re flects the patients wishes and were consensually agreed upon. * Full Code Date Activated Date Inactivated Comments 08/31/2008 7:01 PM 09/03/2008 8:18 PM Care Teams Slab Miller Operator Relationship Specialty Start Date End Date Leia Montague DO [facility] [place] [address] PCP - General Family Medicine 04/27/16 documented as of this encounter
--- OUTSIDE RECORDS SUMMARY | 2024-09-29 06:19 | External Medical Summary | Summary of Care ---
Author Name Unknown Organization [facility] Address [address] [place] [address] Phone [phone] Care Team Providers Care Watchguard Name Role Phone Olga Montaguely Primary Care Provider Reason for Visit * Reason Onset Date Comments Medication Administration 05/18/2024 Flu an d/or Pneumo Inj Encounter Details Date Type Department Care Team (Late st Contact Info) Description 05/18/2024 2:40 PM EDT Immunization Ancillary [facility] [address] [place] [address] Sp, [facility] [address] [facility] [place] [address] Need for prophylactic vaccination and inoculation against influenza* Allergies Active Allergy Reactions Criticality Noted Date Comments Tramadol Low 04/10/2021 Urinary retention Other reaction(s): Urinary Blockage documented as of this encounter (statuses as of 05/18/2024) Medications Medication Sig Dispensed Refills Start Date End Date Status aspirin enteric coated 81 MG TBEC Take 1 Tablet by mouth at bedtime. Take 2 tabs daily 100 Tab 3 01/30/2018 Active Levocetirizine Dihydrochloride 5 MG Oral TabletIndications:Dys function of both eustachian tubes Take by mouth 0.5 Tablets before bedtime. 45 Tablet 01/18/2022 Active Additional Information Patient not taking.Reported on 12/02/2023 Nitroglycerin 0.4 MG Sublingual Tablet Sublingual (Nitrostat)Indication s:Chest pain, unspecified type 1 tablet every 5 minutes, up to 3 tablets in 15 minutes for chest pain 100 Tablet 4 04/08/2023 Active Additional Information Patient not taking.Reported on 11/22/2023 Pantoprazole Sodium 40 MG Oral Tablet Delayed Release (Protonix)Indications :Gastroesophageal reflux disease without esophagitis TAKE 1 TABLET BY MOUTH EVERY DAY 90 Tablet 3 05/11/2023 Active Fluticasone Propionate 50 MCG/ACT Nasal Suspension (Flonase)Indications: Dysfunction of both eustachian tubes Administer 2 Sprays into each nostril in the morning. 16 g 3 07/26/2023 Active Additional Information Patient not taking.Reported on 11/22/2023 Tamsulosin HCl 0.4 MG Oral Capsule (Flomax)Indications:R etention of urine TAKE 1 CAPSULE BY MOUTH EVERY DAY 90 Capsule 3 08/27/2023 Active Atorvastatin Calcium 40 MG Oral Tablet (Lipitor)Indications: Dyslipidemia, goal LDL below 70 TAKE 1 TABLET BY MOUTH EVERYDAY AT BEDTIME 90 Tablet 3 10/22/2023 Active Clopidogrel Bisulfate 75 MG Oral Tablet (pLAVix) TAKE 1 TABLET BY MOUTH EVERY DAY 90 Tablet 2 10/23/2023 Active valACYclovir HCl 500 MG Oral Tablet (Valtrex)Indications: Recurrent genital herpes TAKE 1 TABLET BY MOUTH EVERY DAY 90 Tablet 2 11/01/2023 Active Metoprolol Succinate ER 25 MG Oral Tablet Extended Release 24 Hour (toPROL XL)Indications:HTN, goal below 130/80 TAKE 1/2 TABLET BY MOUTH DAILY 45 Tablet 3 11/29/2023 Active Ergocalciferol 1.25 MG (10969 UT) Oral Capsule (Vitamin D2(Drisdol))Indicatio ns:Vitamin D deficiency Take 1 Capsule by mouth once a week. 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 S/P primary angioplasty with coronary stent 10/2008 Overview: PTCA/GEM of mid/distal RCA with [place] 3.5X30 and 3.5X15 mm stents. History of colonic polyps 09/20/2006 ADVANCE DIRECTIVE INFORMATION 02/28/2006 Overview: Yes, Patient instructed to provide copy of advance directive for provider to review and to be scanned into Electronic Medical Record documented as of this encounter (statuses as of 05/18/2024) Resolved Problems Problem Noted Date Diagnosed Date [...] Overview: Per CKD protocol [employer] Other*[id number] 04/30/2012 09/04/2016 Overview: Study Title: [employer] Markers for Patients with Cardiovascular Disease Project # [id number] Student Accounts Manager: Radha Hernández MD [phone] Hyperpotassemia 08/17/2009 04/18/2017 CHR ISCHEMIC HRT DIS NEC 09/10/2008 Chest pain 08/31/2008 03/12/2012 Special screening for malign ant neoplasms, colon 05/02/2006 04/09/2017 Overview: 2003- ? Polyps [facility] ELEVATED PROSTATE SPECIFIC ANTIGEN 02/25/2006 10/12/2014 Overview: Negative TRUS/Bx 07/01 PSA(ng/mL) Farida Dt/Tm Resulted Value Status 02/25/06 11:52A 02/25/06 10.24* FINAL 07/03/04 3:48P 07/03/04 5.02* FINAL 05/12/04 12:53P 05/12/04 4.72* FINAL 07/10/01 9:31A 07/10/01 3.18 FINAL Urology consult 03/03: TRUS/ prostate biopsy- bx negative x 13 samples Nocturia 01/09/2019 Mixed dyslipidemia 9 Overview: Per Lipid Taxonomy. documented as of this encounter (statuses as of 05/18/2024) Immunizations Name Administration Dates Next Due COVID-19 mRNA, LNP-s, No Pre serve, 2-Dose Series (Pfizer) 05/30/2021,11/26/2020,11/05/2020 COVID-19, LNP-s, No Preserve , Antoni-sucrose, [...] Assigned at Male 02/02/2023 3:09 PM EDT Gender Identity Male 02/02/2023 3:09 PM EDT Sexual Orientation Straight 12/12/2019 9: 53 AM EDT Job Start Date Occupation Industry Not on file Not on file Not on file documented as of this encounter Patient Instructions * Patient Instructions* Melinda Palm MED ASSIST - 05/18/2024 11:31 AM EDT ~~PATIENT INSTRUCTIONS FOR FLU SHOT~~ Possible side effects of influenza vaccine, (flu shot), are usually mild and include: 1. Soreness or redness at injection site 2. Low grade fever 3. Body aches You may use Tylenol/Acetaminophen as needed for these symptoms. LET YOUR DOCTOR KNOW IMMEDIATELY IF YOU HAVE DIFFICULTY BREATHING OR SWALLOWING, EXPERIENCE ITCHINGOF FEET OR HANDS, HAVE SWELLING OF EYES, FACE OR INSIDE OF NOSE. documented in this encounter Progress Notes * Melinda Palm MED ASSIST - 05/18/2024 11:30 AM EDT PRE - ADMINISTRATION DOCUMENTATION Are you experiencing any cold symptoms or fever? No Have you had Guillain-Hume Syndrome (an illness that causes paralysis) within the last 6 weeks? No Have you had the flu shot in the past? YES Have you ever had a reaction to the flu shot? No DOUG Xiong, 05/18/2024 11:30 AM Immunization Administration Documentation Time Out Procedure Performed: Yes Patient Identified (Ask Name/Date of ): Yes Does the patient have a fever greater than 101 degrees today? No Patient allergic to latex? No VFC Stock: No Immunization(s) verified: Yes, Immunization Name: Flu, VIS Sheet(s) given: Yes Verified Side and Site: Yes Verified Shot(s) with Parent(s)/Patient: Yes documented in this encounter Plan of Treatment Upcoming Encounters Date Type Department Care Team (Late st Contact Info) Description 06/16/2024 8:00 AM EST Office Visit Cardiology, [facility] [address] [place] [address] Herrera Harry DO [address] [place] [address] 09/22/2024 10:40 AM EST Office Visit Dermatology, [facility] [address] [place] [address] Radha Montano PA-C [address] [place] [address] Health Maintenance Due Date Last Done Comments Adult Wellness Visit 2006 Depression Screening 12/11/2020 12/12/2019, 08/09/2017 (Discussed) DTap/Tdap Vaccines (2 - Td or Tdap) 01/21/2024 01/20/2014, 01/04/2011, 12/01/1999 COVID-19 Vaccine ( season) 2024 11/08/2021, 05/30/2021, 11/26/2020, Additional history exists GFR 05/23/2024 11/22/2023, 11/2023, 07/17/2022, Additional history exists Albumin/Creatinine Ratio 08/02/2024 024, 12/22/2021, 11/23/2021, Additional history exists CKD HGB USE SMARTSET 42663 11/21/202411/21, 11/22/2023, 08/02/2023, Additional history exists CKD PHOS USE SMARTSET 31909 11/21/202410/28, 04/21/2021, 01/19/2020, Additional history exists Pneumococcal Vaccine: 65+ Years Completed 08/30/2014, 12/20/2010, 07/01/2006 Zoster Vaccines Completed 08/02/2020, 07/30, 01/20/2014 Influenza Vaccine (FLU shot) Completed , 04/08/2023, 03/29/2022, Additional history exists HPV (Gardasil) Vaccine Aged [...] as of this encounter Visit Diagnoses Diagnosis Need for prophylactic vaccination and inoculation against influenza- Primary documented in this encounter Advance Directives * Full Code (Latest Code Status on File) Date Activated Date Inactivated Comments 02/03/2013 7:23 PM 02/06/2013 3:06 PM This order re flects the patients wishes and were consensually agreed upon. * Full Code Date Activated Date Inactivated Comments 08/31/2008 7:01 PM 09/03/2008 8:18 PM Care Teams Watchguard Relationship Specialty Start Date End Date Olga Montague DO [address] [place] [address] PCP - General Family Medicine 04/27/16 documented as of this encounter
--- OUTSIDE RECORDS SUMMARY | 2024-09-29 06:19 | External Medical Summary | Summary of Care ---
Author Name Unknown Organization [facility] Address [address] [place] [address] Phone [phone] Care Team Providers Care Curbing Stonecutter Name Role Phone Olga Montague DO Primary Care Provider Encounter Details Date Type Department Care Team (Late st Contact Info) Description 08/18/2024 Population Health External Data Unspecified Department Allergies Active Allergy Reactions Criticality Noted Date Comments Tramadol Low 04/10/2021 Urinary retention Other reaction(s): Urinary Blockage documented as of this encounter (statuses as of 08/18/2024) Medications aspirin enteric coated 81 MG TBEC Take 1 Tablet by mouth at bedtime. Take 2 tabs daily 100 Tab 3 01/31/20 18 Active Levocetirizine Dihydrochloride 5 MG Oral TabletIndications:D ysfunction of both eustachian tubes Take by mouth 0.5 Tablets before bedtime. 45 Tablet 01/19/20 22 Active Additional Information Patient not taking.Reported on 12/02/2023 Nitroglycerin 0.4 MG Sublingual Tablet Sublingual (Nitrostat)Indicati ons:Chest pain, unspecified type 1 tablet every 5 minutes, up to 3 tablets in 15 minutes for chest pain 100 Tablet 4 04/08/20 23 Active Additional Information Patient not taking.Reported on 11/22/2023 Fluticasone Propionate 50 MCG/ACT Nasal Suspension (Flonase)Indication s:Dysfunction of both eustachian tubes Administer 2 Sprays into each nostril in the morning. 16 g 3 07/26/20 23 Active Additional Information Patient not taking.Reported on 11/22/2023 Tamsulosin HCl 0.4 MG Oral Capsule (Flomax)Indications :Retention of urine TAKE 1 CAPSULE BY MOUTH EVERY DAY 90 Capsule 3 08/27/19 24 Active Atorvastatin Calcium 40 MG Oral Tablet (Lipitor)Indication s:Dyslipidemia, goal LDL below 70 TAKE 1 TABLET BY MOUTH EVERYDAY AT BEDTIME 90 Tablet 3 10/22/19 24 Active Clopidogrel Bisulfate 75 MG Oral Tablet (pLAVix) TAKE 1 TABLET BY MOUTH EVERY DAY 90 Tablet 2 10/23/19 24 Active valACYclovir HCl 500 MG Oral Tablet (Valtrex)Indication s:Recurrent genital herpes TAKE 1 TABLET BY MOUTH EVERY DAY 90 Tablet 2 11/01/19 24 Active Metoprolol Succinate ER 25 MG Oral Tablet Extended Release 24 Hour (toPROL XL)Indications:HTN, goal below 130/80 TAKE 1/2 TABLET BY MOUTH DAILY 45 Tablet 3 11/29/19 24 Active Ergocalciferol 1.25 MG (12993 UT) Oral Capsule (Vitamin D2(Drisdol))Indicat ions:Vitamin D [...] DAY 90 Tablet 2 06/14/20 24 Active documented as of this encounter (statuses as of 08/18/2024) Active Problems Problem Noted Date Diagnosed Date [...] right lobe seen on CT scan at [facility], Nov, 2010 Carotid stenosis, non-symptomatic 06/02/2010 Dyslipidemia, goal LDL below 70 07/11/2009 Overview (07/11/2009): Per Lipid Taxonomy. S/P primary angioplasty with coronary stent 10/2008 Overview (09/03/2008): PTCA/GEM of mid/distal RCA with [place] 3.5X30 and 3.5X15 mm stents. History of colonic polyps 09/20/2006 documented as of this encounter (statuses as of 08/18/2024) Resolved Problems Problem Noted Date Diagnosed Date [...] Overview: Per CKD protocol [employer] Other*[id number] 04/30/2012 09/04/2016 Overview (04/30/2012): Study Title: [employer] Markers for Patients with Cardiovascular Disease Project # [id number] Foil Wrapper: Radha Hernández MD [phone] Hyperpotassemia 08/17/2009 04/18/2017 CHR ISCHEMIC HRT DIS NEC 09/10/2008 Chest pain 08/31/2008 03/12/2012 Special screening for malign ant neoplasms, colon 05/02/2006 04/09/2017 Overview (05/02/2006): 2003- ? 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 Not on file Not on file documented as of this encounter Plan of Treatment Upcoming Encounters Date Type Department Care Team (Late st Contact Info) Description 09/22/2024 10:40 AM EST Office Visit Dermatology, [facility] [address] [place] [address] Radha Montano PA-C [address] [place] [address] [address] Health Maintenance Due Date Last Done Comments Adult Wellness Visit 2006 Depression Screening 12/11/2020 12/12/2019, 08/09/2017 (Discussed) DTap/Tdap Vaccines (2 - Td or Tdap) 01/21/2024 01/20/2014, 01/04/2011, 12/01/1999 COVID-19 Vaccine ( season) 2024 11/08/2021, 05/30/2021, 11/26/2020, Additional history exists GFR 05/23/2024 11/22/2023, 11/2023, 07/17/2022, Additional history exists Albumin/Creatinine Ratio 08/02/2024 024, 12/22/2021, 11/23/2021, Additional history exists CKD HGB USE SMARTSET 66747 11/21/202411/21, 11/22/2023, 08/02/2023, Additional history exists CKD PHOS USE SMARTSET 91349 11/21/202410/28, 04/21/2021, 01/19/2020, Additional history exists Pneumococcal [...] Not on filedocumented as of this encounter Advance Directives * Full Code (Latest Code Status on File) Date Activated Date Inactivated Comments 02/03/2013 7:23 PM 02/06/2013 3:06 PM This order re flects the patients wishes and were consensually agreed upon. * Full Code Date Activated Date Inactivated Comments 08/31/2008 7:01 PM 09/03/2008 8:18 PM Care Teams Curbing Stonecutter Relationship Specialty Start Date End Date Olga Montague DO [address] [place] [address] PCP - General Family Medicine 04/27/16 documented as of this encounter
--- OUTSIDE RECORDS SUMMARY | 2024-09-29 06:19 | External Medical Summary | Summary of Care ---
Author Name Unknown Organization [facility] Address [address] [place] [address] Phone [phone] Care Team Providers Care Operations Scheduler Name Role Phone Olga Montague DO Primary Care Provider Reason for Visit * Reason Onset Date Comments Health Maintenance 05/27/2024 Encounter Details Date Type Department Care Team (Late st Contact Info) Description 05/27/2024 [facility] [address] [facility] [place] [address] Olga Montague DO [address] [facility] [place] [address] Health Maintenance Allergies Active Allergy Reactions Criticality Noted Date Comments Tramadol Low 04/10/2021 Urinary retention Other reaction(s): Urinary Blockage documented as of this encounter (statuses as of 05/27/2024) Medications Medication Sig Dispensed Refills Start Date [...] Tablet 3 11/29/2023 Active Ergocalciferol 1.25 MG (82301 UT) Oral Capsule (Vitamin D2(Drisdol))Indicatio ns:Vitamin D deficiency Take 1 Capsule by mouth once a week. 12 Capsule 12/02/2023 Active Isosorbide Mononitrate ER 30 MG Oral Tablet Extended Release 24 Hour (Imdur)Indications: CVD (arteriosclerotic cardiovascular disease) TAKE 1 TABLET BY MOUTH EVERY DAY 90 Tablet 3 01/23/2024 Active documented as of this encounter (statuses as of 05/27/2024) Active Problems Problem Noted Date Diagnosed Date [...] right lobe seen on CT scan at [facility], Nov, 2010 Carotid stenosis, non-symptomatic 06/02/2010 Dyslipidemia, goal LDL below 70 07/11/2009 Overview: Per Lipid Taxonomy. S/P primary angioplasty with coronary stent 10/2008 Overview: PTCA/GEM of mid/distal RCA with [place] 3.5X30 and 3.5X15 mm stents. History of colonic polyps 09/20/2006 ADVANCE DIRECTIVE INFORMATION 02/28/2006 Overview: Yes, Patient instructed to provide copy of advance directive for provider to review and to be scanned into Electronic Medical Record documented as of this encounter (statuses as of 05/27/2024) Resolved Problems Problem Noted Date Diagnosed Date [...] Overview: Per CKD protocol [employer] Other*[id number] 04/30/2012 09/04/2016 Overview: Study Title: [employer]omic Markers for Patients with Cardiovascular Disease Project # [id number] Derrick Car Operator: Radha Hernández MD [phone] Hyperpotassemia 08/17/2009 04/18/2017 CHR ISCHEMIC HRT DIS NEC 09/10/2008 Chest pain 08/31/2008 03/12/2012 Special screening for malign ant neoplasms, colon 05/02/2006 04/09/2017 Overview: 2003- ? Polyps [facility] ELEVATED PROSTATE SPECIFIC ANTIGEN 02/25/2006 10/12/2014 Overview: [...] as of this encounter (statuses as of 05/27/2024) Immunizations Name Administration Dates Next Due COVID-19 [...] encounter Miscellaneous Notes * Telephone Encounter - Melissa Osman LPN - 05/27/2024 10:09 AM EDT Care Gaps Comprehensive Care Outreach Last Office/Telemedicine Visit: 02/07/2024 (in office), Visit date not found (telemedicine) Next Office Visit: Visit date not found Hemoglobin AIC Results: Lab Results Component Value Date/Time HEMOGLOBIN A1C - [facility] 5.1 11/02/2010 11:05 AM HEMOGLOBIN A1C - [facility] 5.4 09/01/2008 05:08 PM HEMOGLOBIN A1C - [facility] 5.7 08/31/2008 07:28 PM BP Readings from Last 1 Encounters: 02/07/24 118/60 Reviewed Health Maintenance below: Health Maintenance Topic Date Due Adult Wellness Visit Never done Depression Screening 12/11/2020 DTap/Tdap Vaccines (2 - Td or Tdap) 01/21/2024 COVID-19 Vaccine ( season) 2024 GFR 05/23/2024 Albumin/Creatinine Ratio 08/02/2024 CKD HGB USE SMARTSET 71248 11/21/2024 CKD PHOS USE SMARTSET 16351 11/21/2024 Ov Labs Declined HM. In [place] for the winter. Offered to schedule for spring declined Care Gap Outreach Action Taken: Spoke to patient documented in this encounter Plan of Treatment Upcoming Encounters Date Type Department Care Team (Late st Contact Info) Description 06/16/2024 8:00 AM EST Office Visit Cardiology, [facility] [address] [place] [address] [address] [place] [address] 09/22/2024 10:40 AM EST Office Visit Dermatology, [facility] [address] [place] [address] Radha Montano PA-C [address] [place] [address] [address] Health Maintenance Due Date Last Done Comments Adult Wellness Visit 2006 Depression Screening 12/11/2020 12/12/2019, 08/09/2017 (Discussed) DTap/Tdap Vaccines (2 - Td or Tdap) 01/21/2024 01/20/2014, 01/04/2011, 12/01/1999 COVID-19 Vaccine ( season) 2024 11/08/2021, 05/30/2021, 11/26/2020, Additional history exists GFR 05/23/2024 11/22/2023, 11/2023, 07/17/2022, Additional history exists Albumin/Creatinine Ratio 08/02/2024 024, 12/22/2021, 11/23/2021, Additional history exists CKD HGB USE SMARTSET 89088 11/21/202411/21, 11/22/2023, 08/02/2023, Additional history exists CKD PHOS USE SMARTSET 30389 11/21/202410/28, 04/21/2021, 01/19/2020, Additional history exists Pneumococcal [...] 7:01 PM 09/03/2008 8:18 PM Care Teams Operations Scheduler Relationship Specialty Start Date End Date Olga Montague DO [address] [place] [address] PCP - General Family Medicine 04/27/16 documented as of this encounter
--- OUTSIDE RECORDS SUMMARY | 2024-09-29 06:19 | External Medical Summary | Summary of Care ---
Author Name Unknown Organization [facility] Address [address] [place] [address] Phone [phone] Care Team Providers Care Property Handler Name Role Phone Olga Montague DO Primary [...] 10:40 AM EST Office Visit Dermatology, [facility] [address] [facility] [address] [place] [address] Radha Montano PA-C [address] [place] [address] Neoplasm of uncertain behavior of skin*; [place] [...] 3 11/29/19 24 Active Ergocalciferol 1.25 MG (20110 UT) Oral Capsule (Vitamin D2(Drisdol))Indicat ions:Vitamin D [...] right lobe seen on CT scan at [facility], Nov, 2010 Carotid stenosis, non-symptomatic 06/02/2010 Dyslipidemia, goal LDL below 70 07/11/2009 Overview (07/11/2009): Per Lipid Taxonomy. S/P primary angioplasty with coronary stent 10/2008 Overview (09/03/2008): PTCA/GEM of mid/distal RCA with [place] 3.5X30 and 3.5X15 mm stents. History of [...] Overview: Per CKD protocol [employer] Other*[id number] 04/30/2012 09/04/2016 Overview (04/30/2012): Study Title: [employer] Markers for Patients with Cardiovascular Disease Project # [id number] General Clerk: Radha Hernández MD [phone] Hyperpotassemia 08/17/2009 04/18/2017 CHR ISCHEMIC HRT DIS NEC 09/10/2008 Chest pain 08/31/2008 03/12/2012 Special screening for malign ant neoplasms, colon 05/02/2006 04/09/2017 Overview (05/02/2006): 2003- ? Polyps [facility] ADVANCE DIRECTIVE INFORMATION 02/28/2006 06/01/2024 [...] mRNA, LNP-s, No Pre serve, 2-Dose Series ([employer]) 05/30/2021,11/26/2020,11/05/2020 COVID-19, LNP-s, No Preserve , Antoni-sucrose, Ages 12+ ([employer]) 11/08/2021 Influenza, Whole Virus 05/02/2006,05/12/2002 Pneumococcal Conjugate [...] No 02/02/2023 Does the household have a rustlar source of income? 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 Contact patient via [employer] with results Applicable photos (if any) and [...] [address] [place] [address] Radha Montano PA-C [address] [place] [address] Pending Results Name Type Priority Associated Diagnoses [...] Additional history exists CKD HGB USE SMARTSET 84530 11/21/202411/21, 11/22/2023, 08/02/2023, Additional history exists CKD PHOS USE SMARTSET 04400 11/21/202410/28, 04/21/2021, 01/19/2020, Additional history exists Pneumococcal [...] study not interpreted or resulted by a [facility] or [employer] contracted radiologist. us Radha Montano PA-C RADIOLOGY ([facility]) Final Result documented in this encounter [...] 7:01 PM 09/03/2008 8:18 PM Care Teams Property Handler Relationship Specialty Start Date End Date Olga Montague DO [address] [place] [address] PCP - General Family Medicine 04/27/16 documented as of this encounter
--- OUTSIDE RECORDS SUMMARY | 2024-09-29 06:19 | External Medical Summary | Summary of Care ---
Author Name Unknown Organization [facility] Address [address] [place] [address] Phone [phone] Care Team Providers Care Buffing Turner And Counter Name Role Phone Eddi Olga Radha Primary Care Provider Encounter Details Date Type Department Care Team (Latest Contact Info) Description 09/22/2024 10:51 AM EST - 09/22/2024 11:59 PM EST Hospital Encounter Radiology Film File [address] [place] [address] Arrived Discharge Disposition: Home - Self Care Allergies Active Allergy Reactions Criticality Noted Date Comments Tramadol Low 04/10/2021 Urinary retention Other reaction(s): Urinary Blockage documented as of this encounter (statuses as of 09/23/2024) Medications aspirin enteric coated 81 MG TBEC [...] 3 11/29/19 24 Active Ergocalciferol 1.25 MG (84496 UT) Oral Capsule (Vitamin D2(Drisdol))Indicat ions:Vitamin D [...] as of this encounter (statuses as of 09/23/2024) Active Problems Problem Noted Date Diagnosed Date [...] right lobe seen on CT scan at [facility], Nov, 2010 Carotid stenosis, non-symptomatic 06/02/2010 Dyslipidemia, goal LDL below 70 07/11/2009 Overview (07/11/2009): Per Lipid Taxonomy. S/P primary angioplasty with coronary stent 10/2008 Overview (09/03/2008): PTCA/GEM of mid/distal RCA with [place] 3.5X30 and 3.5X15 mm stents. History of colonic polyps 09/20/2006 documented as of this encounter (statuses as of 09/23/2024) Resolved Problems Problem Noted Date Diagnosed Date [...] Overview: Per CKD protocol [employer] Other*[id number] 04/30/2012 09/04/2016 Overview (04/30/2012): Study Title: [employer] Markers for Patients with Cardiovascular Disease Project # [id number] Senior Electrical Designer: Radha Hernández MD [phone] Hyperpotassemia 08/17/2009 04/18/2017 CHR ISCHEMIC HRT DIS NEC 09/10/2008 Chest pain 08/31/2008 03/12/2012 Special screening for malign ant neoplasms, colon 05/02/2006 04/09/2017 Overview (05/02/2006): 2003- ? 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 Not on file Not on file documented as of this encounter Plan of Treatment Upcoming Encounters Date Type Department Care Team (Late st Contact Info) Description 09/23/2025 10:40 AM EST Office Visit Dermatology, [facility] [address] [place] [address] [address] Radha Montano PA-C [address] [place] [address] [address] Health Maintenance Due Date Last Done Comments Adult Wellness Visit 2006 Depression Screening 12/11/2020 12/12/2019, 08/09/2017 (Discussed) DTap/Tdap Vaccines (2 - Td or Tdap) 01/21/2024 01/20/2014, 01/04/2011, 12/01/1999 COVID-19 Vaccine ( season) 2024 11/08/2021, 05/30/2021, 11/26/2020, Additional history exists GFR 05/23/2024 11/22/2023, 11/2023, 07/17/2022, Additional history exists Albumin/Creatinine Ratio 08/02/2024 024, 12/22/2021, 11/23/2021, Additional history exists CKD HGB USE SMARTSET 60695 11/21/202411/21, 11/22/2023, 08/02/2023, Additional history exists CKD PHOS USE SMARTSET 95269 11/21/202410/28, 04/21/2021, 01/19/2020, Additional history exists Pneumococcal [...] study not interpreted or resulted by a [facility] or [employer] contracted radiologist. Radha Montano PA-C RADIOLOGY ([facility]) Final Result documented in this encounter Advance Directives * Full Code (Latest Code Status on File) Date Activated Date Inactivated Comments 02/03/2013 7:23 PM 02/06/2013 3:06 PM This order re flects the patients wishes and were consensually agreed upon. * Full Code Date Activated Date Inactivated Comments 08/31/2008 7:01 PM 09/03/2008 8:18 PM Care Teams Buffing Turner And Counter Relationship Specialty Start Date End Date Olga Montague DO [address] [facility] [place] [address] PCP - General Family Medicine 04/27/16 documented as of this encounter
--- OUTSIDE RECORDS SUMMARY | 2024-09-29 06:19 | External Medical Summary | Summary of Care ---
Author Name Unknown Organization [facility] Address [address] [place] [address] Phone [phone] Care Team Providers Care Rn Cardiac Name Role Phone Leia Montague DO Primary Care Provider Reason for Visit * Reason Comments eRx-Medication Refill Encounter Details Date Type Department Care Team (Late st Contact Info) Description 06/14/2024 Refill Family Practice [facility] [place] [address] [place] [address] Leia Montague DO [address] [facility] [place] [address] Gastroesophageal reflux disease without esophagitis Allergies Active Allergy Reactions Criticality Noted Date Comments Tramadol Low 04/10/2021 Urinary retention Other reaction(s): Urinary Blockage documented as of this encounter (statuses as of 06/14/2024) Medications aspirin enteric coated 81 MG TBEC [...] 11/22/2023 Tamsulosin HCl 0.4 MG Oral Capsule (Flomax)Indication s:Retention of urine TAKE 1 CAPSULE BY MOUTH EVERY DAY 90 Capsule 3 024 Active Atorvastatin Calcium 40 MG Oral Tablet (Lipitor)Indicatio ns:Dyslipidemia, goal LDL below 70 TAKE 1 TABLET BY MOUTH EVERYDAY AT BEDTIME 90 Tablet 3 024 Active Clopidogrel Bisulfate 75 MG Oral Tablet (pLAVix) TAKE 1 TABLET BY MOUTH EVERY DAY 90 Tablet 2 024 Active valACYclovir HCl 500 MG Oral Tablet (Valtrex)Indicatio ns:Recurrent genital herpes TAKE 1 TABLET BY MOUTH EVERY DAY 90 Tablet 2 024 Active Metoprolol Succinate ER 25 MG Oral Tablet Extended Release 24 Hour (toPROL XL)Indications:HTN , goal below 130/80 TAKE 1/2 TABLET BY MOUTH DAILY 45 Tablet 3 024 Active Ergocalciferol 1.25 MG (78840 UT) Oral Capsule (Vitamin D2(Drisdol))Indica tions:Vitamin D [...] EVERY DAY 90 Tablet 2 024 Active Pantoprazole Sodium 40 MG Oral Tablet Delayed Release (Protonix)Indicati ons:Gastroesophage al reflux disease without esophagitis TAKE 1 TABLET BY MOUTH EVERY DAY 90 Tablet 3 023 2023 Discontinued documented as of this encounter (statuses as of 06/14/2024) Active Problems Problem Noted Date Diagnosed Date [...] right lobe seen on CT scan at [facility], Nov, 2010 Carotid stenosis, non-symptomatic 06/02/2010 Dyslipidemia, goal LDL below 70 07/11/2009 Overview (07/11/2009): Per Lipid Taxonomy. S/P primary angioplasty with coronary stent 10/2008 Overview (09/03/2008): PTCA/GEM of mid/distal RCA with [place] 3.5X30 and 3.5X15 mm stents. History of colonic polyps 09/20/2006 documented as of this encounter (statuses as of 06/14/2024) Resolved Problems Problem Noted Date Diagnosed Date [...] Overview: Per CKD protocol [employer] Other*[id number] 04/30/2012 09/04/2016 Overview (04/30/2012): Study Title: [employer]omic Markers for Patients with Cardiovascular Disease Project # [id number] Database Administration Manager: Radha Hernández MD [phone] Hyperpotassemia 08/17/2009 04/18/2017 CHR ISCHEMIC HRT DIS NEC 09/10/2008 Chest pain 08/31/2008 03/12/2012 Special screening for malign ant neoplasms, colon 05/02/2006 04/09/2017 Overview (05/02/2006): 2003- ? 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 Not on file Not on file documented as of this encounter Miscellaneous Notes * Telephone Encounter - Nidia Mccoy [facility] - 06/14/2024 4:28 PM ESTSigned Prescriptions: Disp Refills Pantoprazole Sodium 40 MG Oral Tablet Aileen*90 Tab*2 Sig: TAKE 1 TABLET BY MOUTH EVERY DAYAuthorizing Provider: LEIA MONTAGUE User: NIDIA MCCOY documented in this encounter Plan of Treatment Upcoming Encounters Date Type Department Care Team (Late st Contact Info) Description 09/22/2024 10:40 AM EST Office Visit Dermatology, [facility] [address] [place] [address] [address] Radha Montano PA-C [address] [phone] Health Maintenance Due Date Last Done Comments Adult Wellness Visit 2006 Depression Screening 12/11/2020 12/12/2019, 08/09/2017 (Discussed) DTap/Tdap Vaccines (2 - Td or Tdap) 01/21/2024 01/20/2014, 01/04/2011, 12/01/1999 COVID-19 Vaccine ( season) 2024 11/08/2021, 05/30/2021, 11/26/2020, Additional history exists GFR 05/23/2024 11/22/2023, 11/2023, 07/17/2022, Additional history exists Albumin/Creatinine Ratio 08/02/2024 024, 12/22/2021, 11/23/2021, Additional history exists CKD HGB USE SMARTSET 20717 11/21/202411/21, 11/22/2023, 08/02/2023, Additional history exists CKD PHOS USE SMARTSET 60587 11/21/202410/28, 04/21/2021, 01/19/2020, Additional history exists Pneumococcal [...] as of this encounter Visit Diagnoses Diagnosis Gastroesophageal reflux disease without esophagitis Esophageal reflux documented in this encounter Advance Directives * Full Code (Latest Code Status on File) Date Activated Date Inactivated Comments 02/03/2013 7:23 PM 02/06/2013 3:06 PM This order re flects the patients wishes and were consensually agreed upon. * Full Code Date Activated Date Inactivated Comments 08/31/2008 7:01 PM 09/03/2008 8:18 PM Care Teams Rn Cardiac Relationship Specialty Start Date End Date Leia Montague DO [address] [place] [address] PCP - General Family Medicine 04/27/16 documented as of this encounter
[2024-09-29 07:20] LABS: BUN Creatinine Ratio 18.3 (10-20); Creatinine Clr Calc Pharmacy 57.4 ml/min; Magnesium 2.2 mg/dl (1.7-2.4); Potassium 4.2 mmol/L (3.5-5.1)
[2024-09-29 07:23] LABS: Basophils # (auto) 0.02 K/uL (0.00-0.20); Basophils % (auto) 0.4 %; Eosinophils # (auto) 0.22 K/uL (0.00-0.50); Eosinophils % (auto) 4.5 %; Hemoglobin 13.6 g/dl (14.0-18.0); Immature Granulocytes # (auto) 0.01 K/uL (0.01-0.20); Immature Granulocytes % (auto) 0.2 %; Lymphocytes # (auto) 1.29 K/uL (1.20-3.40); Lymphocytes % (auto) 26.5 %; Mean Corpuscular Hemoglobin 33.6 pg (25.0-34.0); Mean Corpuscular Hgb Conc 34.9 g/dL (32.0-36.0); Mean Corpuscular Volume 96.3 fL (80.0-100.0); Mean Platelet Volume 9.5 fL (9.4-12.4); Monocytes # (auto) 0.51 K/uL (0.11-0.59); Monocytes % (auto) 10.5 %; Neutrophils # (auto) 2.81 K/uL (1.40-6.50); Neutrophils % (auto) 57.9 %; Platelet Count 125 K/uL (130-400); RDW Coefficient of Variation 13.3 % (11.5-14.5); RDW Standard Deviation 47.8 fL (36.4-46.3); Red Blood Count 4.05 M/uL (4.70-6.10); White Blood Count 4.86 K/ul (4.8-10.8)
[2024-09-29 07:27] LABS: Troponin I High Sensitivity 5.3 pg/ml (0-20)
[2024-09-29] MEDS: FLUTICASONE PROPIONATE NA SPR 16 GM BTL SCH (08:09)
[2024-09-29] MEDS: PANTOprazole 40 MG TAB PO SCH (08:10)
[2024-09-29] MEDS: ISOSORBIDE MONO EXTENDED REL 30 MG TABCR PO SCH (08:10)
[2024-09-29] MEDS: valACYclovir HCL 500 MG TABLET PO SCH (08:13)
--- NOTE | 2024-09-29 09:50 | Cardiology Consultation ---
Date of Consultation September 29, 2024 Assessment & Plan (1) Chest pain: (2) Labile hypertension: Plan 84-year-old male admitted with elevated blood pressure and atypical chest discomfort. No evidence of acute coronary syndrome. Blood pressure improving throughout hospitalization. 2D transthoracic echocardiogram demonstrates preserved LV systolic function without regional wall motion abnormality. Recommend cautious addition of low-dose lisinopril 2.5 mg daily to aid with blood pressure control. Continue isosorbide monohydrate, Toprol-XL, aspirin, clopidogrel, and statin therapy as previously ordered. Encourage patient to restrict sodium intake. No further inpatient cardiac testing or intervention recommended at this time. I will arrange for outpatient cardiology follow-up in approximately 2 weeks. Thank you for allow me to participate in the care of your patient. Cardiology will sign off. Herrera Harry DO [facility] History of Present Illness Reason for Consultation: Chest pain Requesting Physician: Dr. Cat Attending Physician: Santy Israel MD History of Present Illness 84-year-old patient presented to the emergency department due to left-sided chest discomfort. Discomfort occurred while watching television. Systolic blood pressure typically in 130s increased to 180s. Subsequently proceeded to the ER for further evaluation and treatment. Initial workup unremarkable with negative cardiac enzymes. ECG without ischemic changes. Compliant with current cardiac medications including aspirin, clopidogrel, isosorbide monohydrate, metoprolol, and statin therapy. Pain-free since admission. present at bedside. Long history of labile hypertension including episodes of symptomatic hypotension with systolic blood pressures into the 90s per home cuff. History of coronary artery disease status post PCI of right coronary artery 2008, chronic severe ramus intermedius disease filling via left to left collaterals, TIA 2017, mild carotid vascular disease, dyslipidemia, and labile hypertension. Allergies Allergy/AdvReac Type Severity Reaction Status Date / Time tramadol AdvReac Mild Urinary Verified 04/03/23 10:49 Blockage Home Medications Medication Instructions Recorded Confirmed Type aspirin 81 mg tablet,delayed 162 mg PO HS 01/27/21 09/28/24 History release (Symone Low Dose Aspirin) atorvastatin 40 mg tablet (Lipitor) 40 mg PO HS 01/27/21 09/28/24 History clopidogrel 75 mg tablet (Plavix) 75 mg PO HS 01/27/21 09/28/24 History isosorbide mononitrate 30 mg 30 mg PO QAM 01/27/21 09/28/24 History tablet,extended release 24 hr metoprolol succinate 25 mg 12.5 mg PO HS 01/27/21 09/28/24 History tablet,extended release 24 hr (Toprol XL) nitroglycerin 0.4 mg sublingual 0.4 mg sublingual UD PRN Chest Pain 01/27/21 09/28/24 History tablet (Nitrostat) pantoprazole 40 mg tablet,delayed 40 mg PO QAM 01/27/21 09/28/24 History release (Protonix) valacyclovir 500 mg tablet 500 mg PO QAM 01/27/21 09/28/24 History (Valtrex) tamsulosin 0.4 mg capsule 0.4 mg PO HS 04/03/23 09/28/24 History fluticasone propionate 50 2 spray intranasal QAM 09/28/24 09/28/24 History mcg/actuation nasal spray,suspension levocetirizine 5 mg tablet 2.5 mg PO HS 09/28/24 09/28/24 History Patient History Medical History Hx of iron deficiency anemia fall 2021, had to have an iron infusion History of COVID-19 apr or early , home test, not hosp; mild symptoms>resolved. Ambulatory dysfunction Generalized weakness Diastolic dysfunction Neurogenic claudication due to lumbar spinal stenosis History of myocardial infarction 2008 > GEM to RCA Follows with [facility] cardiology Trigger finger of left hand CKD (chronic kidney disease), stage III CAD (coronary artery disease) 2009: GEM to RCA 2010: Known residual occlusion occlusion of the ramus intermedius that was not amenable to PCI (2010) > treated medically 2012: Mild distal left main disease and 90% ramus intermedius stenosis with left to left collaterals unchanged compared to prior. 40% LAD stenosis noted and RCA stents patent > treated medically Surgical History Hx of oral surgery dental implant surgery Hx of bilateral cataract extraction History of back surgery 07/2021, decompression and fusion Hx of colonoscopy Hx of repair of right rotator cuff History of cardiac cath 2009: GEM to RCA 2011: Known residual occlusion occlusion of the ramus intermedius that was not amenable to PCI (2010) > treated medically 2012: Mild distal left main disease and 90% ramus intermedius stenosis with left to left collaterals unchanged compared to prior. 40% LAD stenosis noted and RCA stents patent > treated medically Hx of laminectomy Family History Mother Dementia Father Stroke Social History Smoking Status: Former smoker Tobacco Type: Cigarettes Second Hand Exposure: Yes (growing up); Do You Dip or Chew Tobacco: No; Hx Alcohol Use: No Hx Substance Use: No Preferred Language: Spanish Communication Ability: Effective Food Technologist Required: No Beliefs That Will Affect Care: None marital status: Current Living Situation: Spouse Current Living Situation Comment: Lives with Feels Safe at Home: Yes Safety Concerns: Feels Safe At This Time Assistive Devices: Denture - Upper, Denture - Lower and Glasses Review of Systems Review of Systems: All systems reviewed & are unremarkable except as noted in Subjective Physical Exam Constitutional: well nourished; no acute distress Respiratory: no respiratory distress, no labored breathing and no retractions Auscultation: no crackles, no rales, no rhonchi and no wheezes Cardiovascular: Rate/Rhythm: regular rate and regular rhythm Heart Sounds: normal S1, normal S2 and + murmur (1/6 systolic ejection murmur heard best at base) Vessels: radial pulses present; no JVD and no carotid bruit Extremities: no edema Gastrointestinal (Abdomen): Inspection/Auscultation: abdomen normal to inspection and normal bowel sounds; abdomen not distended Percussion/Palpation: abdomen soft; abdomen nontender, no guarding and abdomen not rigid Neurologic: CN's II-XI intact bilaterally and moves all extremities; no focal motor deficits Results & Data Vital Signs (Past 12 Hours) Vital Signs Temp Pulse Pulse Resp BP BP Pulse Ox 09/29/24 07:34 60 09/29/24 05:05 36.9 C 56 L 16 163/105 H 98 09/29/24 04:10 57 L 12 137/80 98 09/29/24 04:10 09/29/24 02:15 59 L 16 160/94 H 97 09/29/24 01:15 89 L 09/29/24 00:16 56 L 09/28/24 23:49 67 14 149/91 H 97 09/28/24 22:06 61 12 153/90 H 97 Pulse Ox O2 Del Method O2 Del Method O2 Flow Rate 09/29/24 07:34 09/29/24 05:05 Nasal Cannula 1.5 09/29/24 04:10 Nasal Cannula 1.5 09/29/24 04:10 96 Room Air 09/29/24 02:15 Nasal Cannula 1.5 09/29/24 01:15 Room Air, Nasal Cannula 0 09/29/24 00:16 09/28/24 23:49 Room Air 09/28/24 22:06 Laboratory Results Cardiac Enzymes 09/28/24 09/29/24 Range/Units 20:33 06:49 AST 19 (13-39) U/L Troponin I High Sens 6.9 5.3 (0-20) pg/ml Coagulation 09/28/24 Range/Units 20:33 PT 10.9 (9.0-12.0) Seconds APTT 26 (21-31) Seconds CBC 09/28/24 09/29/24 Range/Units 20:33 06:49 WBC 6.67 4.86 (4.8-10.8) K/ul RBC 4.36 L 4.05 L (4.70-6.10) M/uL Hgb 14.6 13.6 L (14.0-18.0) g/dl Hct 42.4 39.0 L (42.0-52.0) % Plt Count 141 125 L (130-400) K/uL Neut # (Auto) 3.69 2.81 (1.40-6.50) K/uL Lymph # (Auto) 2.07 1.29 (1.20-3.40) K/uL Lane # (Auto) 0.60 H 0.51 (0.11-0.59) K/uL Eos # (Auto) 0.25 0.22 (0.00-0.50) K/uL Baso # (Auto) 0.05 0.02 (0.00-0.20) K/uL Comprehensive Metabolic Panel 09/28/24 09/29/24 Range/Units 20:33 06:49 Sodium 137 139 (136-145) mmol/L Potassium 4.2 4.2 (3.5-5.1) mmol/L Chloride 104 107 (98-107) mmol/L Carbon Dioxide 30 29 (21-32) mmol/L BUN 23 19 (6-23) mg/dl Creatinine 1.19 1.04 (0.6-1.4) mg/dl Glucose 101 H 89 (70-99(Fasting)) mg/dl Calcium 9.6 9.0 (8.6-10.3) mg/dl AST 19 (13-39) U/L ALT 19 (7-52) U/L Alkaline Phosphatase 61 (34-104) U/L Total Protein 7.0 (6.0-8.3) gm/dl Albumin 4.5 (3.4-5.0) gm/dl Intake and Output 09/28/24 09/29/24 09/29/24 22:59 06:59 14:59 Output Total 275 / 275 Balance -275 / -275 Output: Urine 275 / 275 Other: # Unmeasured Voids 2 Weight 76.8 kg Weight Measurement Method Chair Scale Diagnostic Findings Dobutamine stress echo report, [facility] 12/12/2023: The stress echo is negative for inducible ischemia. There was an adequate and appropriate heart rate response to the dobutamine/atropine stress protocol. There is a vaso dilatory hypotension response at peak infusion No symptoms were noted. The stress EKG response showed no evidence of ischemia. The left ventricular wall motion is normal. The left ventricular wall motion with stress is normal. The left ventricular ejection fraction increases normally with stress. The left ventricular systolic function is normal. The LV wall thickness is moderately increased (concentric). The qualitative LV ejection fraction is 55-59% (normal). The left ventricular diastolic function is mildly abnormal (grade I). The aortic root is mildly enlarged. (4.1 cm) ECG Additional Comments: ECG: Sinus rhythm, first-degree AV block, left axis deviation. (1) Chest pain Chest pain type: other chest pain Qualified Code(s): R07.89 - Other chest pain
--- NOTE | 2024-09-29 13:18 | Discharge Summary ---
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 Currently pain is resolved. Denies any shortness of breath. Denies any nausea. No sweating. No dizziness. No blurred vision. No runny nose or sore throat. Hard of hearing. No fevers. No abdominal pain. Normal bowel and bladder movements. Resting comfortably and hemodynamically stable. Past medical history. As mentioned above Past surgical history. Aspiration of thyroid cyst. Colonoscopy. Left heart catheterization. IR biopsy. Punch needle biopsy of prostate. Lumbar laminectomy. Repair of rotator cuff. Repair of biceps tendon rupture. Social history. . Quit smoking 1982. Smoked 0.5 pack a day for 10 years. Alcohol occasional. No drug use. Family history. Mother had dementia. Father had stroke. Admission Exam Per Admitting Provider General- Not in distress Head- atraumatic Eyes- PERRL. ENT- oropharynx clear Neck- supple, no JVD. Lungs- clear to auscultation no wheezing or crackles Heart- regular rate and rhythm; no murmur, no gallop. Abdomen- normal bowel sounds, soft, nontender, no distension Extremities- no pretibial edema, no erythema seen Neuro- alert, oriented PERRL, no facial palsy; no dysarthria; moves extremities Principal Diagnosis Chest pain , Labile hypertension Discharge Exam General- WD elderly M in NAD Head- atraumatic Eyes- PERRL. Neck- supple, no JVD. Lungs- clear to auscultation no wheezing or crackles Heart- regular rate and rhythm; no murmur Abdomen- normal bowel sounds, soft, nontender, no distension Extremities- no pretibial edema, no erythema seen Neuro- alert, oriented PERRL, no facial palsy; no dysarthria; moves extremities Discharge Data Allergies Allergy/AdvReac Type Severity Reaction Status Date / Time tramadol AdvReac Mild Urinary Verified 04/03/23 10:49 Blockage Consultations 09/28/24 22:35 ED Decision to Admit Stat 09/29/24 08:00 Consult Cardiology Routine Hospital Course (1) Chest pain: 84-year-old male with past medical history significant for dyslipidemia, history of multinodular thyroid, carotid stenosis, CKD stage III, peripheral vascular disease, 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 Currently pain is resolved. Denies any shortness of breath. Denies any nausea. No sweating. No dizziness. No blurred vision. No runny nose or sore throat. Hard of hearing. No fevers. No abdominal pain. Normal bowel and bladder movements. Resting comfortably and hemodynamically stable. Chest pain Labile hypertension Initial workup unremarkable Currently chest pain-free Followed serial enzymes and obtained echo Monitor on tele Cardiology consulted - added lisinopril 2.5 mg daily to current regimen History of CAD status post stents On aspirin, Plavix, Lipitor, Imdur, metoprolol succinate Hypertension, labile On Imdur and metoprolol succinate Will monitor Hyperlipidemia On statin BPH On Flomax GERD On Protonix Peripheral vascular disease On aspirin, Plavix and statin CKD stage III Presented creatinine 1.1 History of TIA On aspirin, Plavix and statin Total Time Total Time Spent Total Time Spent (In Minutes): 36 Discharge Plan Discharge Items Patient Disposition: Home - Self-Care Reason For Visit: CHEST PAIN Discharge Diagnosis: Chest pain , Labile hypertension Activity: Per Instructions section Non-emergency contact: Primary Care Provider and Makeup Instructor Call non-emergency contact if: you have any medication questions and your symptoms worsen Follow-up/Referrals: Olga Montague, [Primary Care Provider] - (Date & Time 10/06/2024 10:00 AM Provider: Whitney Gibbs MD [facility] ) Diet: Heart Healthy Addtl Attending Provider Instructions: Follow up with your primary care doctor and nipple threader. The appointment with your primary care doctor was scheduled for 10/06/2024. You will be contacted about your cardiology appointment. You were started on lisinopril 2.5 mg daily. Monitor your blood pressure and record your numbers. Pending Studies at Discharge: No Stand-Alone Forms: My [facility], Smoking Cessation Medications and DC Order Prescriptions: New lisinopril 2.5 mg Tablet 2.5 mg PO QAM Qty: 30 0RF Continued atorvastatin [Lipitor] 40 mg tablet 40 mg PO HS isosorbide mononitrate 30 mg tablet extended release 24 hr 30 mg PO QAM clopidogrel [Plavix] 75 mg tablet 75 mg PO HS valacyclovir [Valtrex] 500 mg tablet 500 mg PO QAM aspirin [Symone Low Dose Aspirin] 81 mg Tablet,Delayed Release (Dr/Ec) 162 mg PO HS pantoprazole [Protonix] 40 mg tablet,delayed release (DR/EC) 40 mg PO QAM nitroglycerin [Nitrostat] 0.4 mg Tablet, Sublingual 0.4 mg sublingual UD PRN (Reason: Chest Pain) Patient Comments: has not had to use Rx Instructions: 1 tablet every 5 minutes,up to 3 tablets in 15 minutes for chest pain metoprolol succinate [Toprol XL] 25 mg tablet extended release 24 hr 12.5 mg PO HS tamsulosin 0.4 mg capsule 0.4 mg PO HS fluticasone propionate 50 mcg/actuation [place],Suspension 2 spray INTRANASAL QAM Rx Instructions: administer into each nostril levocetirizine 5 mg Tablet 2.5 mg PO HS Discharge Orders: Discharge Order (Routine); Ordered 09/29/24 Ordered By: Santy Israel Admission Data Admit Date/Time: 09/29/24 02:13 Attending Provider: Santy Israel Admit Provider: Bassam Cat Primary Care Provider: Olga Montague Other Providers: Bassam Cat; Herrera Harry
[2024-09-29 13:46] VITALS: RESP 16
[2024-09-29] MEDS: lisinopril 2.5 MG TAB PO SCH (14:26)
[2024-09-29 14:28] VITALS: BP 118/57; PULSE 72; TEMP 97.7; O2SAT 97
[2024-09-29] MEDS ORDERED: CLOPIDOGREL BISULFATE 75 MG TAB PO SCH (21:00)
[2024-09-29] MEDS ORDERED: CETIRIZINE HCL 10 MG TABLET PO SCH (21:00)
[2024-09-29] MEDS ORDERED: ASPIRIN 81 MG ECTAB PO SCH (21:00)
[2024-09-29] MEDS ORDERED: TAMSULOSIN HCL 0.4 MG CAP PO SCH (21:00)
[2024-09-29] MEDS ORDERED: METOPROLOL SUCC 25MG EXT REL TAB PO SCH (21:00)
[2024-09-29] MEDS ORDERED: ATORVASTATIN 40 MG TAB PO SCH (21:00)
--- NOTE | 2024-09-30 20:40 | Electrocardiogram Report ---
Test Reason : Blood Pressure : */* mmHG Vent. Rate : 67 BPM Atrial Rate : 67 BPM P-R Int : 210 ms QRS Dur : 108 ms QT Int : 388 ms P-R-T Axes : 55 -30 54 degrees QTcB Int : 409 ms Sinus rhythm with 1st degree A-V block Left axis deviation Abnormal ECG When compared with ECG of 03-Apr-2023 07:58, No significant change was found Confirmed by Gallito Hamilton ([id number]) on 09/30/2024 8:40:09 PM Referred By: REFERRED SELF Confirmed By: Gallito Hamilton
== END 2024-09-29 14:18 | disposition home or self-care (01) ==
LOC: ED 20:14 → EDINP 20:14